=== PATIENT | female | born 1975 ===

== ENCOUNTER 2017-08-16 05:30 | Inpatient (IN) | payer OTHER ==
[2017-08-16] MEDS ORDERED: DIPRIVAN 10 MG/ML 1,000 MG/100 ML BOTTLE IV ONE (05:44)
[2017-08-16] MEDS ORDERED: AMIDATE IV ONE (05:54)
[2017-08-16] MEDS ORDERED: ZEMURON IV ONE (05:54)
[2017-08-16] MEDS ORDERED: DIPRIVAN 10 MG/ML 1,000 MG/100 ML BOTTLE IV SCH (06:00)
[2017-08-16 06:16] LABS: Hematocrit 43.2 % (30.3-42.9); Hemoglobin 13.6 gm/dl (10.1-14.3); Mean Corpuscular HGB Conc 32 % (30-34); Mean Corpuscular Volume 82 fl (79-97); Platelet Count 300 K/mm3 (140-440); Red Blood Count 5.28 M/mm3 (3.65-5.03); Red Cell Distribution Width 14.2 % (13.2-15.2)
[2017-08-16 06:20] LABS: Bilirubin,Urine NEG (Negative); Blood,Urine SM (Negative); Color,Urine Straw (Yellow); Urobilinogen,Urine < 2.0 mg/dL (<2.0)
[2017-08-16 06:25] LABS: Mean Corpuscular Hemoglobin 26 pg (28-32)
[2017-08-16 06:30] LABS: Protein,Urine >500 mg/dL (Negative)
--- NOTE | 2017-08-16 06:39 | Emergency Department Report ---
ED Shortness of Breath HPI - General Chief Complaint: Dyspnea/Respdistress Stated Complaint: MIKI Time Seen by Provider: 08/16/17 05:46 Source: EMS Mode of arrival: Stretcher Limitations: Other - History of Present Illness Initial Comments: EMS were called about nausea and vomiting and when they got to the scene she was short of breath and they gave lasix and albuterol and put her on cpap with no improvement. when she came in she had vomit in her mouth MD Complaint: shortness of breath -: Gradual Severity: severe Consistency: constant Improves With: nothing Worsens With: nothing Treatments Prior to Arrival: none - Related Data Previous Rx's Medication Instructions Recorded Last Taken Type Aspirin EC [Aspirin Enteric Coated 325 mg PO QDAY #30 tablet 08/16/16 Unknown Rx TAB] AtorvaSTATin [Lipitor] 40 mg PO QHS #30 tablet 08/16/16 Unknown Rx Lisinopril [Zestril TAB] 5 mg PO QDAY #30 tablet 08/16/16 Unknown Rx Metoprolol [Lopressor TAB] 25 mg PO BID #60 tablet 08/16/16 Unknown Rx Nitroglycerin [Nitrostat] 0.4 mg SL .Q5MIN PRN #30 tablet 08/16/16 Unknown Rx Prasugrel [Effient] 10 mg PO QDAY #30 tablet 08/16/16 Unknown Rx Allergies Allergy/AdvReac Type Severity Reaction Status Date / Time No Known Allergies Allergy Unverified 08/14/16 15:41 ED Review of Systems ROS: Stated complaint: MIKI Other details as noted in HPI Comment: All other systems reviewed and negative ED Past Medical Hx - Past Medical History Previous Medical History?: Yes Hx Hypertension: Yes Hx Heart Attack/AMI: Yes (stent placement) - Surgical History Past Surgical History?: Yes Additional Surgical History: - Social History Smoking Status: Unknown if ever smoked Substance Use Type: None - Medications Home Medications: Home Medications Medication Instructions Recorded Confirmed Last Taken Type Aspirin EC [Aspirin Enteric Coated 325 mg PO QDAY #30 tablet 08/16/16 Unknown Rx TAB] AtorvaSTATin [Lipitor] 40 mg PO QHS #30 tablet 08/16/16 Unknown Rx Lisinopril [Zestril TAB] 5 mg PO QDAY #30 tablet 08/16/16 Unknown Rx Metoprolol [Lopressor TAB] 25 mg PO BID #60 tablet 08/16/16 Unknown Rx Nitroglycerin [Nitrostat] 0.4 mg SL .Q5MIN PRN #30 tablet 08/16/16 Unknown Rx Prasugrel [Effient] 10 mg PO QDAY #30 tablet 08/16/16 Unknown Rx ED Physical Exam - General Limitations: Other General appearance: alert, in no apparent distress - Head Head exam: Present: atraumatic, normocephalic - Eye Eye exam: Present: normal appearance - ENT ENT exam: Present: mucous membranes moist - Neck Neck exam: Present: normal inspection - Respiratory Respiratory exam: Present: respiratory distress (SEVERE), rhonchi (DIFFUSE) - Cardiovascular Cardiovascular Exam: Present: regular rate, normal rhythm. Absent: systolic murmur, diastolic murmur, rubs, gallop - GI/Abdominal GI/Abdominal exam: Present: soft, normal bowel sounds. Absent: tenderness - Rectal Rectal exam: Present: deferred - Extremities Exam Extremities exam: Present: normal inspection - Back Exam Back exam: Present: normal inspection - Neurological Exam Neurological exam: Present: alert. Absent: oriented X3 - Skin Skin exam: Present: warm, dry, intact, normal color. Absent: rash ED Course Vital Signs 08/16/17 08/16/17 08/16/17 05:26 05:30 05:46 Temperature Pulse Rate 141 H 139 H 133 H Respiratory 27 H 20 Rate Blood Pressure 164/115 Blood Pressure [Left] O2 Sat by Pulse 93 88 97 Oximetry 08/16/17 08/16/17 08/16/17 05:59 06:00 06:04 Temperature 97.6 F Pulse Rate 142 H 135 H 134 H Respiratory 18 20 Rate Blood Pressure 171/121 174/121 Blood Pressure [Left] O2 Sat by Pulse 95 95 Oximetry 08/16/17 08/16/17 08/16/17 06:05 06:15 06:30 Temperature 97.6 F Pulse Rate 135 H 123 H 135 H Respiratory 20 20 20 Rate Blood Pressure 215/143 201/126 Blood Pressure 171/121 [Left] O2 Sat by Pulse 95 97 99 Oximetry 08/16/17 08/16/17 08/16/17 06:37 06:45 07:00 Temperature Pulse Rate 130 H 135 H Respiratory 20 21 20 Rate Blood Pressure 216/133 201/126 Blood Pressure [Left] O2 Sat by Pulse 100 98 98 Oximetry 08/16/17 07:06 Temperature Pulse Rate 133 H Respiratory Rate Blood Pressure 205/124 Blood Pressure [Left] O2 Sat by Pulse Oximetry - Intubation Time Out Performed: Yes Sedative: Etomidate Mg Given: 20 Paralytic: Rocuronium Mg Given: 100 Laryngoscope: fiberoptic video scope Size: 3 Assist Device Used: fiberoptic device ET Tube Size: 8 Tube Secured Depth (cm): 24 (AT TEETH AND 26CM AT THE LIP) Tube Secured Location: lips Tube Placement Confirmation: visualized tube passing t, equal breath sounds bilat, no breath sounds over epi, confirmation by capnometr Patient Tolerated Procedure: well Intubation Complications: none ED Medical Decision Making - Lab Data Result diagrams: 08/16/17 06:00 08/16/17 06:00 - EKG Data -: EKG Interpreted by Me EKG shows normal: sinus rhythm (SINUS TACHYCARDIA), axis (NORMAL), intervals ( NORMAL), QRS complexes (NORMAL), ST-T waves (NORMAL) - Radiology Data Radiology results: report reviewed - Medical Decision Making I SPOKE dR Ahumada WHO ACCEPTED THE PATIENT FOR ADMISSION Critical Care Time: Yes Critical care time in (mins) excluding proc time.: 75 Critical care attestation.: If time is entered above; I have spent that time in minutes in the direct care of this critically ill patient, excluding procedure time. ED Disposition Clinical Impression: Severe sepsis, Acute respiratory failure, Aspiration pneumonia Disposition: OP ADMIT IP TO THIS HOSP Is pt being admited?: Yes Does the pt Need Aspirin: No Condition: Stable Instructions: Bacterial Pneumonia (ED)
[2017-08-16 06:40] LABS: Albumin 3.8 g/dL (3.9-5); Calcium 8.3 mg/dL (8.4-10.2)
[2017-08-16] MEDS ORDERED: APRESOLINE IV ONE (06:52)
[2017-08-16] MEDS ORDERED: ZOSYN/NS 4.5GM/100ML 4.5 GM/100 ML VIAL IV SCH (07:00)
--- NOTE | 2017-08-16 07:02 | XRay Report ---
FINAL REPORT EXAM: XR ABDOMEN 1V AP HISTORY: post NG placed COMPARISONS: Chest radiograph of the same date FINDINGS: AP portable view of the abdomen Nasogastric tube projects over the left abdomen with distal side port below the gastroesophageal junction. No supine evidence of pneumoperitoneum. IMPRESSION: Satisfactory appearance of patient's nasogastric tube.
[2017-08-16] MEDS ORDERED: VASELINE LIP THERAPY TP PRN (07:06)
[2017-08-16 07:46] LABS: Band Neutrophils # (Manual) 0.8 K/mm3; RBC Morphology Normal; Total Cells Counted 100
[2017-08-16] MEDS ORDERED: NACL 0.9% 1000 ML IV ONE (07:46)
[2017-08-16] MEDS ORDERED: D50W (25GM) Syringe IV PRN (07:51)
[2017-08-16] MEDS ORDERED: NACL 0.9% 500 ML IV SCH (08:00)
[2017-08-16] MEDS ORDERED: VITAMIN B1 IV ONE (09:00)
[2017-08-16] MEDS ORDERED: NACL 0.9% IV ONE (09:00)
[2017-08-16] MEDS ORDERED: NACL 0.9% 1000 ML 1,000 ML IV ONE (09:34)
--- NOTE | 2017-08-16 09:34 | Consultation ---
History of Present Illness Consult date: 08/16/17 Requesting physician: MARIN SIDDIQI Reason for consult: hypoxemia History of present illness: 42 y/o morbidly obese black female admitted to the ICU with acute respiratory failure. Patient is intubated orally and sedated and not able provide any history. There is no family at the bedside. Patient is tachycardic, normal blood pressure and tachypnic. Currently on 30% with 100% sat and PEEP of 8. Remainder is negative. Patient also found to be in renal failure, not sure if this is acute or chronic. Past History Past Medical History: hypertension, other (obesity, tobacco abuse, all based off admission from last year.) Past Surgical History: Other (unable to obtain) Social history: other (unable to obtain) Family history: other (unable to obtain) Medications and Allergies Allergies Allergy/AdvReac Type Severity Reaction Status Date / Time No Known Allergies Allergy Unverified 08/14/16 15:41 Home Medications Medication Instructions Recorded Confirmed Last Taken Type Aspirin EC [Aspirin Enteric Coated 325 mg PO QDAY #30 tablet 08/16/16 Unknown Rx TAB] AtorvaSTATin [Lipitor] 40 mg PO QHS #30 tablet 08/16/16 Unknown Rx Lisinopril [Zestril TAB] 5 mg PO QDAY #30 tablet 08/16/16 Unknown Rx Metoprolol [Lopressor TAB] 25 mg PO BID #60 tablet 08/16/16 Unknown Rx Nitroglycerin [Nitrostat] 0.4 mg SL .Q5MIN PRN #30 tablet 08/16/16 Unknown Rx Prasugrel [Effient] 10 mg PO QDAY #30 tablet 08/16/16 Unknown Rx Active Meds: Active Medications Aspirin (Aspirin) 300 mg [place] QDAY JOSÉ MIGUEL Dextrose (D50w (25gm) Syringe) 50 ml IV PRN PRN PRN Reason: Hypoglycemia Enoxaparin Sodium (Lovenox) 40 mg SUB-Q QDAY JOSÉ MIGUEL Hydrophilic Ointment (Vaseline Lip Therapy) 1 applic TP Q2HR PRN PRN Reason: Dry Lips Propofol (Diprivan 10 Mg/Ml) 1,000 mg in 100 mls @ 3.674 mls/hr IV TITR JOSÉ MIGUEL; Protocol Last Titration: 08/16/17 08:57 Dose: 22 mcg/kg/min, 16.166 mls/hr Piperacillin Sod/Tazobactam Sod (Zosyn/Ns 4.5gm/100ml) 4.5 gm in 100 mls @ 200 mls/hr IV ONCE JOSÉ MIGUEL Piperacillin Sod/Tazobactam Sod (Zosyn/Ns 4.5gm/100ml) 4.5 gm in 100 mls @ 200 mls/hr IV Q8H JOSÉ MIGUEL; Protocol Ascorbic Acid 1,500 mg/ Sodium (Chloride) 103 mls @ 206 mls/hr IV Q6H JOSÉ MIGUEL Stop: 08/17/17 04:29 Thiamine HCl 200 mg/ Sodium (Chloride) 102 mls @ 204 mls/hr IV Q6H JOSÉ MIGUEL Stop: 08/17/17 03:29 Insulin Human Lispro (Humalog) 0 unit SUB-Q Q6HR JOSÉ MIGUEL; Protocol Sodium Chloride (Nacl 0.9% 500 Ml) 1 ml IV DIRECT JOSÉ MIGUEL Review of Systems ROS unobtainable: due to endotracheal tube, due to mental status Physical Examination Vital signs: Vital Signs Pulse Pulse Ox 141 H 93 08/16/17 05:26 08/16/17 05:26 General appearance: comatose Eyes: non-icteric ENT: other (orally intubated and sedated, critically ill on vent) Neck: supple Ascultation: Bilateral: clear Percussion: Bilateral: not dull Cardiovascular: other (appears to be sinus tach) Gastrointestinal: hypoactive bowel sounds, soft Extremities: no cyanosis unable to assess Results - Laboratory Findings CBC and BMP: 08/16/17 06:00 08/16/17 06:00 ABG POC ABG pH 7.204 (7.35-7.45) L 08/16/17 07:24 POC ABG pCO2 62.2 (35-45) H 08/16/17 07:24 POC ABG pO2 234 (80-105) H 08/16/17 07:24 POC ABG HCO3 24.6 08/16/17 07:24 POC ABG Total CO2 26 08/16/17 07:24 POC ABG O2 Sat 100 08/16/17 07:24 Abnormal lab findings: Abnormal Labs 08/16/17 08/16/17 08/16/17 06:00 06:00 06:00 WBC 12.7 H RBC 5.28 H Hct 43.2 H MCH 26 L Lymphocytes % (Manual) 48.0 H Lymphocytes # (Manual) 6.1 H POC ABG pH POC ABG pCO2 POC ABG pO2 Chloride 96.4 L Carbon Dioxide 17 L BUN 25 H Creatinine 1.5 H Glucose 312 H Lactic Acid 4.00 H* Calcium 8.3 L Phosphorus 8.80 H AST 61 H Alkaline Phosphatase 157 H NT-Pro-B Natriuret Pep 621.2 H Albumin 3.8 L 08/16/17 07:24 WBC RBC Hct MCH Lymphocytes % (Manual) Lymphocytes # (Manual) POC ABG pH 7.204 L POC ABG pCO2 62.2 H POC ABG pO2 234 H Chloride Carbon Dioxide BUN Creatinine Glucose Lactic Acid Calcium Phosphorus AST Alkaline Phosphatase NT-Pro-B Natriuret Pep Albumin - Diagnostic Findings Chest x-ray: image reviewed (cardiomegaly with some pulmonary vascular congestion, but no evidence of acute lung disease) Assessment and Plan 42 y/o obese female, admitted with acute respiratory failure, renal failure and nausea and vomiting of unknown etiology. 1. Wean FiO2 for sats >88%. Continue PEEP currently at 8 2. Will add nicoderm patch given history of smoking 3. Will also add some PRN neb treatments. 4. UA negative for infection but does have large amounts of protein. Suggest checking FeNA. Repeat labs in am. Will give additional fluids here despite BNP being elevated at [address] on IV lopressor given emesis. Patient takes this med at home, may explain tachycardia that she is experiencing. 6. Added PRN fentanyl with hopes of weaning diprovan therapy some 7. If family has not been alerted, primary to address 8. Keep NPO for now and place NG to intermittent suction 9. Will need serial lactic acid levels 10. On DVT prophylaxis, will add GI CCT 31 minutes.
[2017-08-16] MEDS ORDERED: PROVENTIL IH PRN (09:45)
[2017-08-16] MEDS: ASPIRIN PR SCH (09:52)
[2017-08-16] MEDS: LOVENOX SUB-Q SCH (09:52)
[2017-08-16] MEDS: ZOSYN/NS 4.5GM/100ML 4.5 GM/100 ML VIAL IV SCH ×2 (09:53→16:23)
[2017-08-16] MEDS: NACL 0.9% IV SCH ×6 (09:53→21:42)
[2017-08-16] MEDS: ASCORBIC ACID IV SCH ×3 (09:53→21:42)
[2017-08-16] MEDS: VITAMIN B1 IV SCH ×3 (09:54→21:42)
[2017-08-16] MEDS ORDERED: VITAMIN B-1 200 MG in NACL 0.9% 50 ML IV SCH (10:00)
[2017-08-16] MEDS: PEPCID IV SCH ×2 (10:18→21:42)
[2017-08-16] MEDS: HABITROL TD SCH (10:18)
[2017-08-16] MEDS: DIPRIVAN 10 MG/ML 1,000 MG/100 ML BOTTLE IV SCH ×2 (11:22→18:35)
--- NOTE | 2017-08-16 11:47 | History and Physical Report ---
History of Present Illness Date of examination: 08/16/17 Date of admission: 08/16/17 07:15 Chief complaint: Nausea, vomiting, shortness of breath History of present illness: Patient is a 42 year old female with history of Morbid obesity, DM, CAD on plavix who presented to the ER via EMS after they recieved a call about from patient about persistent nausea and vomiting with shortness of breath. Patient was placed on CPAP at her residence but was with no improvement and impending respiratory failure resulting in intubation at the ER. At the time of my evaluation, patient was already intubated. Per the ED physician the patient had significant oral secretions and hence high suspicion of Aspiration. Past History Past Medical History: CAD, diabetes, hypertension, other (obesity, tobacco abuse , all based off admission from last year.) Past Surgical History: Other (unable to obtain) Social history: other (unable to obtain) Family history: other (unable to obtain) Medications and Allergies Allergies Allergy/AdvReac Type Severity Reaction Status Date / Time No Known Allergies Allergy Unverified 08/14/16 15:41 Home Medications Medication Instructions Recorded Confirmed Last Taken Type Aspirin EC [Aspirin Enteric Coated 325 mg PO QDAY #30 tablet 08/16/16 Unknown Rx TAB] AtorvaSTATin [Lipitor] 40 mg PO QHS #30 tablet 08/16/16 Unknown Rx Lisinopril [Zestril TAB] 5 mg PO QDAY #30 tablet 08/16/16 Unknown Rx Metoprolol [Lopressor TAB] 25 mg PO BID #60 tablet 08/16/16 Unknown Rx Nitroglycerin [Nitrostat] 0.4 mg SL .Q5MIN PRN #30 tablet 08/16/16 Unknown Rx Prasugrel [Effient] 10 mg PO QDAY #30 tablet 08/16/16 Unknown Rx Active Meds: Active Medications Albuterol (Proventil) 2.5 mg IH Q6HRT PRN PRN Reason: Wheezing Aspirin (Aspirin) 300 mg [place] QDAY [facility] Last Admin: 08/16/17 09:52 Dose: 300 mg Dextrose (D50w (25gm) Syringe) 50 ml IV PRN PRN PRN Reason: Hypoglycemia Enoxaparin Sodium (Lovenox) 40 mg SUB-Q QDAY [facility] Last Admin: 08/16/17 09:52 Dose: 40 mg Famotidine (Pepcid) 20 mg IV BID [facility] Last Admin: 08/16/17 10:18 Dose: 20 mg Fentanyl (Sublimaze) 50 mcg IV Q2H PRN PRN Reason: Pain Hydrophilic Ointment (Vaseline Lip Therapy) 1 applic TP Q2HR PRN PRN Reason: Dry Lips Propofol (Diprivan 10 Mg/Ml) 1,000 mg in 100 mls @ 3.674 mls/hr IV TITR JOSÉ MIGUEL; Protocol Last Titration: 08/16/17 11:23 Dose: 0 mcg/kg/min, 0 mls/hr Piperacillin Sod/Tazobactam Sod (Zosyn/Ns 4.5gm/100ml) 4.5 gm in 100 mls @ 200 mls/hr IV ONCE JOSÉ MIGUEL Piperacillin Sod/Tazobactam Sod (Zosyn/Ns 4.5gm/100ml) 4.5 gm in 100 mls @ 200 mls/hr IV Q8H JOSÉ MIGUEL; Protocol Last Admin: 08/16/17 09:53 Dose: 200 mls/hr Ascorbic Acid 1,500 mg/ Sodium (Chloride) 103 mls @ 206 mls/hr IV Q6H JOSÉ MIGUEL Stop: 08/17/17 04:29 Last Admin: 08/16/17 09:53 Dose: 206 mls/hr Thiamine HCl 200 mg/ Sodium (Chloride) 102 mls @ 204 mls/hr IV Q6H JOSÉ MIGUEL Stop: 08/17/17 03:29 Last Admin: 08/16/17 09:54 Dose: 204 mls/hr Propofol (Diprivan 10 Mg/Ml) 1,000 mg in 100 mls @ 3.674 mls/hr IV TITR JOSÉ MIGUEL; Protocol Last Admin: 08/16/17 11:22 Dose: 20 mcg/kg/min, 14.696 mls/hr Insulin Human Lispro (Humalog) 0 unit SUB-Q Q6HR JOSÉ MIGUEL; Protocol Nicotine (Habitrol) 21 mg TD QDAY JOSÉ MIGUEL Last Admin: 08/16/17 10:18 Dose: 21 mg Sodium Chloride (Nacl 0.9% 500 Ml) 1 ml IV DIRECT JOSÉ MIGUEL Review of Systems ROS unobtainable: due to endotracheal tube (PER ED and EMS notes, nausea, vomiting, shortness of breath) Exam - Constitutional Vitals: Temp Pulse Resp BP Pulse Ox 97.8 F 126 H 26 H 115/71 100 08/16/17 09:00 04/14/18 08:54 08/16/17 08:10 08/16/17 08:54 08/16/17 09:07 General appearance: Present: severe distress, other (on mechanical ventilation) - EENT Eyes: Present: PERRL - Neck Neck: Present: supple, normal ROM - Respiratory Respiratory effort: labored Respiratory: bilateral: diminished - Cardiovascular Heart Sounds: Present: S1 & S2 (tachycardia) - Extremities Extremities: no ischemia, pulses intact, pulses symmetrical, No edema, normal temperature, normal color Peripheral Pulses: within normal limits - Abdominal General gastrointestinal: Present: soft, non-tender, normal bowel sounds - Integumentary Integumentary: Present: clear, warm, dry - Musculoskeletal Musculoskeletal: other (unable to access) - Psychiatric Psychiatric: agitated - Neurologic Neurologic: other (unable to access) Results - Labs CBC & Chem 7: 08/17/17 04:20 08/17/17 04:20 Labs: Laboratory Last Values WBC 12.7 K/mm3 (4.5-11.0) H 08/16/17 06:00 RBC 5.28 M/mm3 (3.65-5.03) H 08/16/17 06:00 Hgb 13.6 gm/dl (10.1-14.3) 08/16/17 06:00 Hct 43.2 % (30.3-42.9) H 08/16/17 06:00 MCV 82 fl (79-97) 08/16/17 06:00 MCH 26 pg (28-32) L 08/16/17 06:00 MCHC 32 % (30-34) 08/16/17 06:00 RDW 14.2 % (13.2-15.2) 08/16/17 06:00 Plt Count 300 K/mm3 (140-440) 08/16/17 06:00 Lymph # Mobile Designer 08/16/17 06:00 Add Manual Diff Complete 08/16/17 06:00 Total Counted 100 08/16/17 06:00 Seg Neuts % (Manual) 41.0 % (40.0-70.0) 08/16/17 06:00 Band Neutrophils % 6.0 % 08/16/17 06:00 Lymphocytes % (Manual) 48.0 % (13.4-35.0) H 08/16/17 06:00 Reactive Lymphs % (Man) 0 % 08/16/17 06:00 Monocytes % (Manual) 3.0 % (0.0-7.3) 08/16/17 06:00 Eosinophils % (Manual) 1.0 % (0.0-4.3) 08/16/17 06:00 Basophils % (Manual) 1.0 % (0.0-1.8) 08/16/17 06:00 Metamyelocytes % 0 % 08/16/17 06:00 Myelocytes % 0 % 08/16/17 06:00 Promyelocytes % 0 % 08/16/17 06:00 Blast Cells % 0 % 08/16/17 06:00 Nucleated RBC % Not Reportable 08/16/17 06:00 Seg Neutrophils # Man 5.2 K/mm3 (1.8-7.7) 08/16/17 06:00 Band Neutrophils # 0.8 K/mm3 08/16/17 06:00 Lymphocytes # (Manual) 6.1 K/mm3 (1.2-5.4) H 08/16/17 06:00 Abs React Lymphs (Man) 0.0 K/mm3 08/16/17 06:00 Monocytes # (Manual) 0.4 K/mm3 (0.0-0.8) 08/16/17 06:00 Eosinophils # (Manual) 0.1 K/mm3 (0.0-0.4) 08/16/17 06:00 Basophils # (Manual) 0.1 K/mm3 (0.0-0.1) 08/16/17 06:00 Metamyelocytes # 0.0 K/mm3 08/16/17 06:00 Myelocytes # 0.0 K/mm3 08/16/17 06:00 Promyelocytes # 0.0 K/mm3 08/16/17 06:00 Blast Cells # 0.0 K/mm3 08/16/17 06:00 WBC Morphology Not Reportable 08/16/17 06:00 Hypersegmented Neuts Not Reportable 08/16/17 06:00 Hyposegmented Neuts Not Reportable 08/16/17 06:00 Hypogranular Neuts Not Reportable 08/16/17 06:00 Smudge Cells Not Reportable 08/16/17 06:00 Toxic Granulation Not Reportable 08/16/17 06:00 Toxic Vacuolation Not Reportable 08/16/17 06:00 Dohle Bodies Not Reportable 08/16/17 06:00 Pelger-Huet Anomaly Not Reportable 08/16/17 06:00 Barbara Rods Not Reportable 08/16/17 06:00 Platelet Estimate Appears normal 08/16/17 06:00 Clumped Platelets Not Reportable 08/16/17 06:00 Plt Clumps, EDTA Not Reportable 08/16/17 06:00 Large Platelets Not Reportable 08/16/17 06:00 Giant Platelets Not Reportable 08/16/17 06:00 Platelet Satelliting Not Reportable 08/16/17 06:00 Plt Morphology Comment Not Reportable 08/16/17 06:00 RBC Morphology Normal 08/16/17 06:00 Dimorphic RBCs Not Reportable 08/16/17 06:00 Polychromasia Not Reportable 08/16/17 06:00 Hypochromasia Not Reportable 08/16/17 06:00 Poikilocytosis Not Reportable 08/16/17 06:00 Anisocytosis Not Reportable 08/16/17 06:00 Microcytosis Not Reportable 08/16/17 06:00 Macrocytosis Not Reportable 08/16/17 06:00 Spherocytes Not Reportable 08/16/17 06:00 Pappenheimer Bodies Not Reportable 08/16/17 06:00 Sickle Cells Not Reportable 08/16/17 06:00 Target Cells Not Reportable 08/16/17 06:00 Tear Drop Cells Not Reportable 08/16/17 06:00 Ovalocytes Not Reportable 08/16/17 06:00 Helmet Cells Not Reportable 08/16/17 06:00 Pulido-[place] Bodies Not Reportable 08/16/17 06:00 [place] Rings Not Reportable 08/16/17 06:00 Cristina Cells Not Reportable 08/16/17 06:00 Bite Cells Not Reportable 08/16/17 06:00 Crenated Cell Not Reportable 08/16/17 06:00 Elliptocytes Not Reportable 08/16/17 06:00 Acanthocytes (Spur) Not Reportable 08/16/17 06:00 Rouleaux Not Reportable 08/16/17 06:00 Hemoglobin C Crystals Not Reportable 08/16/17 06:00 Schistocytes Not Reportable 08/16/17 06:00 Malaria parasites Not Reportable 08/16/17 06:00 Malcolm Bodies Not Reportable 08/16/17 06:00 Hem Pathologist Commnt No 08/16/17 06:00 POC ABG pH 7.204 (7.35-7.45) L 08/16/17 07:24 POC ABG pCO2 62.2 (35-45) H 08/16/17 07:24 POC ABG pO2 234 (80-105) H 08/16/17 07:24 POC ABG HCO3 24.6 08/16/17 07:24 POC ABG Total CO2 26 08/16/17 07:24 POC ABG O2 Sat 100 08/16/17 07:24 POC ABG Base Excess -3 08/16/17 07:24 FiO2 100 % 08/16/17 07:24 Sodium 138 mmol/L (137-145) 08/16/17 06:00 Potassium 4.3 mmol/L (3.6-5.0) 08/16/17 06:00 Chloride 96.4 mmol/L (98-107) L 08/16/17 06:00 Carbon Dioxide 17 mmol/L (22-30) L 08/16/17 06:00 Anion Gap 29 mmol/L 08/16/17 06:00 BUN 25 mg/dL (7-17) H 08/16/17 06:00 Creatinine 1.5 mg/dL (0.7-1.2) H 08/16/17 06:00 Estimated GFR 38 ml/min 08/16/17 06:00 BUN/Creatinine Ratio 17 % 08/16/17 06:00 Glucose 312 mg/dL (65-100) H 08/16/17 06:00 Lactic Acid 4.00 mmol/L (0.7-2.0) H* 08/16/17 06:00 Calcium 8.3 mg/dL (8.4-10.2) L 08/16/17 06:00 Phosphorus 8.80 mg/dL (2.5-4.5) H 08/16/17 06:00 Magnesium 2.10 mg/dL (1.7-2.3) 08/16/17 06:00 Total Bilirubin 0.20 mg/dL (0.1-1.2) 08/16/17 06:00 AST 61 units/L (5-40) H 08/16/17 06:00 ALT 51 units/L (7-56) 08/16/17 06:00 Alkaline Phosphatase 157 units/L (35-129) H 08/16/17 06:00 NT-Pro-B Natriuret Pep 621.2 pg/mL (0-450) H 08/16/17 06:00 Total Protein 7.3 g/dL (6.3-8.2) 08/16/17 06:00 Albumin 3.8 g/dL (3.9-5) L 08/16/17 06:00 Albumin/Globulin Ratio 1.1 % 08/16/17 06:00 Urine Color Straw (Yellow) 08/16/17 06:06 Urine Turbidity Clear (Clear) 08/16/17 06:06 Urine pH 6.0 (5.0-7.0) 08/16/17 06:06 Ur Specific Venus 1.007 (1.003-1.030) 08/16/17 06:06 Urine Protein >500 mg/dL (Negative) 08/16/17 06:06 Urine Glucose (UA) >=500 mg/dL (Negative) 08/16/17 06:06 Urine Ketones Neg mg/dL (Negative) 08/16/17 06:06 Urine Blood Sm (Negative) 08/16/17 06:06 Urine Nitrite Neg (Negative) 08/16/17 06:06 Urine Bilirubin Neg (Negative) 08/16/17 06:06 Urine Urobilinogen < 2.0 mg/dL (<2.0) 08/16/17 06:06 Ur Leukocyte Esterase Neg (Negative) 08/16/17 06:06 Urine WBC (Auto) 2.0 /HPF (0.0-6.0) 08/16/17 06:06 Urine RBC (Auto) 2.0 /HPF (0.0-6.0) 08/16/17 06:06 U Epithel Cells (Auto) < 1.0 /HPF (0-13.0) 08/16/17 06:06 Blood Type B POSITIVE 08/16/17 06:15 Antibody Screen Negative 08/16/17 06:15 - Imaging and Cardiology Chest x-ray: image reviewed (diffuse infiltrate) Assessment and Plan Assessment and plan: Patient is a 42 year old female with history of Morbid obesity, DM, CAD on plavix who presented to the ER via EMS after they recieved a call about from patient about persistent nausea and vomiting with shortness of breath. Patient was placed on CPAP at her residence but was with no improvement and impending respiratory failure resulting in intubation at the ER. At the time of my evaluation, patient was already intubated. Per the ED physician the patient had significant oral secretions and hence high suspicion of Aspiration Acute Respiratory failure requiring mechanical ventilation Severe sepsis Aspiration Pneumonia-Presumed Acute Kidney injury with vasomotor nephropathy CAD Hyperglycemia suspect DM Morbid obesity Metabolic Acidosis Plan Admit to ICU Consult rn integrated Continue Mechanical ventilation Sepsis bundle Fluids IV Insulin for DM control DVT/GI prophy The high probability of a clinically significant, sudden or life threatening deterioration of the [pulmonary, GI, renal] system(s) required my full and direct attention, intervention and personal management. The aggregate critical care time was [45] minutes. This time is in addition to time spent performing reported procedures but includes the following: [X] Data Review and interpretation [X] Patient assessment and monitoring of vital signs [X] Documentation [X] Medication orders and management Advance Directives: Yes Plan of care discussed with patient/family: Yes
[2017-08-16] MEDS ORDERED: ASCORBIC ACID 1,500 MG in NACL 0.9% 50 ML IV SCH (12:00)
[2017-08-16] MEDS: HumaLOG SUB-Q SCH ×2 (12:15→17:43)
[2017-08-16 12:22] LABS: Amphetamine Screen,Urine PRESUMPTIVE NEGATIVE; Benzodiazepines Screen,Urine PRESUMPTIVE NEGATIVE; Cannabinoid Screen,Urine PRESUMPTIVE NEGATIVE; Cocaine Screen,Urine PRESUMPTIVE NEGATIVE; Methadone Screen,Urine PRESUMPTIVE NEGATIVE; Opiate Screen,Urine PRESUMPTIVE NEGATIVE
[2017-08-16] MEDS ORDERED: VANCOMYCIN VIAL IV ONE (13:31)
[2017-08-16] MEDS ORDERED: VANCOMYCIN PHARMACY TO DOSE IV SCH (14:00)
[2017-08-16] MEDS: LOPRESSOR IV SCH ×2 (14:36→21:43)
[2017-08-16] MEDS: VANCOMYCIN 2,000 MG in NACL 0.9% 500 ML 500 ML IV SCH (14:48)
--- NOTE | 2017-08-16 17:06 | XRay Report ---
FINAL REPORT PROCEDURE: XR ABDOMEN 1V AP TECHNIQUE: AP supine view of the abdomen HISTORY: NGT placement COMPARISON: 08/16/2017 FINDINGS: Nasogastric tube has been advanced into the distal stomach. Bowel gas pattern is nonobstructive. No focal osseous lesion is seen. No abnormal calcifications are identified. IMPRESSION: Nasogastric tube has been advanced into the distal stomach
[2017-08-17] MEDS: DIPRIVAN 10 MG/ML 1,000 MG/100 ML BOTTLE IV SCH ×2 (00:27→17:59)
[2017-08-17] MEDS: HumaLOG SUB-Q SCH ×4 (00:28→18:14)
[2017-08-17 04:36] LABS: Hematocrit 32.5 % (30.3-42.9); Hemoglobin 11.2 gm/dl (10.1-14.3); Mean Corpuscular HGB Conc 35 % (30-34); Mean Corpuscular Hemoglobin 27 pg (28-32); Mean Corpuscular Volume 79 fl (79-97); Platelet Count 221 K/mm3 (140-440); Red Blood Count 4.14 M/mm3 (3.65-5.03); Red Cell Distribution Width 14.4 % (13.2-15.2)
[2017-08-17 05:02] LABS: Calcium 7.8 mg/dL (8.4-10.2)
[2017-08-17] MEDS: ASCORBIC ACID IV SCH ×4 (05:04→21:19)
[2017-08-17] MEDS: NACL 0.9% IV SCH ×8 (05:04→21:19)
[2017-08-17] MEDS: VITAMIN B1 IV SCH ×4 (05:05→21:02)
[2017-08-17] MEDS: ZOSYN/NS 4.5GM/100ML 4.5 GM/100 ML VIAL IV SCH ×3 (05:06→16:40)
[2017-08-17] MEDS: LOPRESSOR IV SCH ×4 (05:08→21:02)
[2017-08-17] MEDS ORDERED: SODIUM BICARBONATE IV NR (07:56)
--- NOTE | 2017-08-17 09:14 | Progress Note ---
Assessment and Plan 42 y/o obese female, admitted with acute respiratory failure, renal failure and nausea and vomiting of unknown etiology. 1. Wean FiO2 for sats >88%. Will decrease PEEP to 5 today. 2. Continue nicoderm patch with history of smoking. 3. With confirmed history of smoking, will add BID Pulmicort and brovana therapy. 4. No FeNA checked. This may be chronic renal disease as she did not respond to additional fluids. Will order Urine Na and Urine Cr as well as Urine Urea as believe patient got lasix in the ED. Will order renal ultrasound. After these things have been collected, consider renal consult. 5. If patient is extubated today and passes bedside swallow, can restart home medication. If not, restart PO Via OG tube and consider feeds. 6. Wean diprovan as tolerated. Down to 10 and RASS is 0 7. lasctic acid has improved will stop serial checks 8. On DVT prophylaxis, and GI prophylaxis 9. Decreased RR to 18. Will attempt PSV trial later today. If tolerates and stable, will consider extubation. CCT 31 minutes. Subjective Date of service: 08/17/17 Interval history: Awake and alert. On Propofol of 10. Not breathing over the vent and rate set at 22. Was 24 earlier. ABG consistent with respiratory alkalosis with attempt at bicarb to compensate by spilling. Patient was able to nod yes or no to questions appropriately. STates that she does smoke. She is trying to quit. She, her self called 911 for shortness of breath. She has never been intubated before and she had no sick contacts. Objective Vital Signs - 12hr 08/16/17 08/16/17 08/16/17 21:11 21:21 21:30 Temperature Pulse Rate 95 H 100 H 102 H Pulse Rate [ From Monitor] Respiratory 26 H 26 H 26 H Rate Blood Pressure 94/50 94/50 92/48 O2 Sat by Pulse Oximetry 08/16/17 08/16/17 08/16/17 21:41 21:43 21:51 Temperature Pulse Rate 99 H 100 H Pulse Rate [ From Monitor] Respiratory 26 H 26 H Rate Blood Pressure 92/48 94/50 92/48 O2 Sat by Pulse Oximetry 08/16/17 08/16/17 08/16/17 22:00 22:11 22:21 Temperature Pulse Rate 98 H 99 H 93 H Pulse Rate [ From Monitor] Respiratory 26 H 26 H 26 H Rate Blood Pressure 95/49 95/49 95/49 O2 Sat by Pulse Oximetry 08/16/17 08/16/17 08/16/17 22:30 22:41 22:51 Temperature Pulse Rate 87 106 H 124 H Pulse Rate [ From Monitor] Respiratory 26 H 26 H 24 Rate Blood Pressure 113/57 113/57 113/57 O2 Sat by Pulse Oximetry 08/16/17 08/16/17 08/16/17 23:01 23:11 23:21 Temperature Pulse Rate 120 H 108 H 105 H Pulse Rate [ From Monitor] Respiratory 20 26 H 26 H Rate Blood Pressure 106/77 106/77 106/77 O2 Sat by Pulse Oximetry 08/16/17 08/16/17 08/16/17 23:30 23:37 23:41 Temperature 98.8 F Pulse Rate 101 H 102 H Pulse Rate [ From Monitor] Respiratory 26 H 26 H Rate Blood Pressure 104/52 104/52 O2 Sat by Pulse 100 Oximetry 08/16/17 08/16/17 08/17/17 23:50 23:51 00:00 Temperature Pulse Rate 103 H 101 H 103 H Pulse Rate [ 101 H From Monitor] Respiratory 26 H 26 H Rate Blood Pressure 104/52 104/52 88/49 O2 Sat by Pulse 100 100 100 Oximetry 08/17/17 08/17/17 08/17/17 00:11 00:21 00:30 Temperature Pulse Rate 100 H 100 H 101 H Pulse Rate [ From Monitor] Respiratory 26 H 26 H 26 H Rate Blood Pressure 88/49 88/49 82/41 O2 Sat by Pulse 100 100 100 Oximetry 08/17/17 08/17/17 08/17/17 00:41 00:51 01:00 Temperature Pulse Rate 102 H 101 H 94 H Pulse Rate [ From Monitor] Respiratory 26 H 26 H 26 H Rate Blood Pressure 82/41 82/41 94/44 O2 Sat by Pulse 100 100 100 Oximetry 08/17/17 08/17/17 08/17/17 01:11 01:21 01:31 Temperature Pulse Rate 113 H 115 H 117 H Pulse Rate [ From Monitor] Respiratory 24 26 H 26 H Rate Blood Pressure 94/44 94/44 112/85 O2 Sat by Pulse 100 100 100 Oximetry 08/17/17 08/17/17 08/17/17 01:41 01:51 02:00 Temperature Pulse Rate 112 H 107 H 113 H Pulse Rate [ From Monitor] Respiratory 26 H 26 H 26 H Rate Blood Pressure 112/85 112/85 120/82 O2 Sat by Pulse 100 100 100 Oximetry 08/17/17 08/17/17 08/17/17 02:11 02:21 02:30 Temperature Pulse Rate 103 H 103 H 85 Pulse Rate [ From Monitor] Respiratory 26 H 26 H 26 H Rate Blood Pressure 120/82 120/82 110/55 O2 Sat by Pulse 100 100 100 Oximetry 08/17/17 08/17/17 08/17/17 02:41 02:51 03:00 Temperature Pulse Rate 95 H 102 H 103 H Pulse Rate [ From Monitor] Respiratory 26 H 26 H 26 H Rate Blood Pressure 110/55 110/55 110/55 O2 Sat by Pulse 100 100 100 Oximetry 08/17/17 08/17/17 08/17/17 03:11 03:21 03:30 Temperature Pulse Rate 140 H 114 H 110 H Pulse Rate [ From Monitor] Respiratory 25 H 26 H 26 H Rate Blood Pressure 116/65 110/55 123/71 O2 Sat by Pulse Oximetry 08/17/17 08/17/17 08/17/17 03:41 03:51 04:00 Temperature 98.8 F Pulse Rate 110 H 108 H 102 H Pulse Rate [ 121 H From Monitor] Respiratory 26 H 26 H 26 H Rate Blood Pressure 123/71 123/71 99/59 O2 Sat by Pulse 100 Oximetry 08/17/17 08/17/17 08/17/17 04:11 04:21 04:30 Temperature Pulse Rate 103 H 105 H 102 H Pulse Rate [ From Monitor] Respiratory 26 H 26 H 26 H Rate Blood Pressure 99/59 99/59 110/60 O2 Sat by Pulse Oximetry 08/17/17 08/17/17 08/17/17 04:41 04:43 04:51 Temperature Pulse Rate 108 H 110 H 131 H Pulse Rate [ From Monitor] Respiratory 26 H 25 H Rate Blood Pressure 110/60 110/60 110/60 O2 Sat by Pulse 100 Oximetry 08/17/17 08/17/17 08/17/17 05:00 05:08 05:11 Temperature Pulse Rate 118 H 111 H 106 H Pulse Rate [ From Monitor] Respiratory 26 H 26 H Rate Blood Pressure 118/70 118/70 118/70 O2 Sat by Pulse Oximetry 08/17/17 08/17/17 08/17/17 05:21 05:30 05:41 Temperature Pulse Rate 88 89 88 Pulse Rate [ From Monitor] Respiratory 26 H 26 H 26 H Rate Blood Pressure 118/70 113/56 113/56 O2 Sat by Pulse Oximetry 08/17/17 08/17/17 08/17/17 05:51 06:00 06:11 Temperature Pulse Rate 88 88 92 H Pulse Rate [ From Monitor] Respiratory 26 H 26 H 26 H Rate Blood Pressure 113/56 97/49 97/49 O2 Sat by Pulse Oximetry 08/17/17 08/17/17 08/17/17 06:21 06:31 06:41 Temperature Pulse Rate 79 90 86 Pulse Rate [ From Monitor] Respiratory 26 H 26 H 26 H Rate Blood Pressure 97/49 100/50 100/50 O2 Sat by Pulse 100 100 Oximetry 08/17/17 08/17/17 08/17/17 06:51 07:00 07:11 Temperature Pulse Rate 83 89 83 Pulse Rate [ From Monitor] Respiratory 26 H 26 H 26 H Rate Blood Pressure 100/50 90/47 90/47 O2 Sat by Pulse 100 100 100 Oximetry 08/17/17 08/17/17 08/17/17 07:21 07:30 07:41 Temperature Pulse Rate 82 85 70 Pulse Rate [ From Monitor] Respiratory 26 H 26 H 26 H Rate Blood Pressure 95/46 98/51 98/51 O2 Sat by Pulse 100 100 100 Oximetry 08/17/17 08/17/17 08/17/17 07:51 08:00 08:11 Temperature 98.7 F Pulse Rate 90 78 100 H Pulse Rate [ 78 From Monitor] Respiratory 26 H 26 H 26 H Rate Blood Pressure 97/53 89/47 89/47 O2 Sat by Pulse 100 100 100 Oximetry 08/17/17 08/17/17 08:21 08:32 Temperature Pulse Rate 90 106 H Pulse Rate [ From Monitor] Respiratory 26 H Rate Blood Pressure 107/49 107/49 O2 Sat by Pulse 100 100 Oximetry Constitutional: alert Eyes: non-icteric ENT: other (orally intubated and sedated, critically ill on vent) Neck: supple Ascultation: Bilateral: clear Percussion: Bilateral: not dull Cardiovascular: other (appears to be sinus tach) Gastrointestinal: hypoactive bowel sounds, soft Extremities: no cyanosis Neurologic: unable to assess CBC and BMP: 08/17/17 04:20 08/17/17 04:20 ABG, PT/INR, D-dimer: ABG POC ABG pH 7.555 (7.35-7.45) H 08/17/17 04:57 POC ABG pCO2 19.3 (35-45) L 08/17/17 04:57 POC ABG pO2 140 (80-105) H 08/17/17 04:57 POC ABG HCO3 17.1 08/17/17 04:57 POC ABG Total CO2 18 08/17/17 04:57 POC ABG O2 Sat 100 08/17/17 04:57 Abnormal lab findings: Abnormal Labs 08/16/17 08/16/17 08/16/17 06:00 06:00 06:00 WBC 12.7 H RBC 5.28 H Hct 43.2 H MCH 26 L MCHC Lymphocytes % (Manual) 48.0 H Lymphocytes # (Manual) 6.1 H POC ABG pH POC ABG pCO2 POC ABG pO2 Potassium Chloride 96.4 L Carbon Dioxide 17 L BUN 25 H Creatinine 1.5 H Glucose 312 H POC Glucose Lactic Acid 4.00 H* Calcium 8.3 L Phosphorus 8.80 H AST 61 H Alkaline Phosphatase 157 H NT-Pro-B Natriuret Pep 621.2 H Albumin 3.8 L 08/16/17 08/16/17 08/16/17 07:24 11:57 12:07 WBC RBC Hct MCH MCHC Lymphocytes % (Manual) Lymphocytes # (Manual) POC ABG pH 7.204 L POC ABG pCO2 62.2 H POC ABG pO2 234 H Potassium Chloride Carbon Dioxide BUN Creatinine Glucose POC Glucose 138 H Lactic Acid 2.80 H* Calcium Phosphorus AST Alkaline Phosphatase NT-Pro-B Natriuret Pep Albumin 08/16/17 08/16/17 08/16/17 13:27 17:43 18:05 WBC RBC Hct MCH MCHC Lymphocytes % (Manual) Lymphocytes # (Manual) POC ABG pH POC ABG pCO2 POC ABG pO2 Potassium Chloride Carbon Dioxide BUN Creatinine 1.3 H Glucose POC Glucose 138 H Lactic Acid 2.20 H* Calcium Phosphorus AST Alkaline Phosphatase NT-Pro-B Natriuret Pep Albumin 08/17/17 08/17/17 08/17/17 00:06 04:20 04:20 WBC RBC Hct MCH 27 L MCHC 35 H Lymphocytes % (Manual) Lymphocytes # (Manual) POC ABG pH POC ABG pCO2 POC ABG pO2 Potassium 3.1 L D Chloride 107.9 H Carbon Dioxide 16 L BUN 23 H Creatinine 1.5 H Glucose 143 H POC Glucose 143 H Lactic Acid Calcium 7.8 L Phosphorus AST Alkaline Phosphatase NT-Pro-B Natriuret Pep Albumin 08/17/17 08/17/17 04:57 05:48 WBC RBC Hct MCH MCHC Lymphocytes % (Manual) Lymphocytes # (Manual) POC ABG pH 7.555 H POC ABG pCO2 19.3 L POC ABG pO2 140 H Potassium Chloride Carbon Dioxide BUN Creatinine Glucose POC Glucose 129 H Lactic Acid Calcium Phosphorus AST Alkaline Phosphatase NT-Pro-B Natriuret Pep Albumin
[2017-08-17] MEDS: HABITROL TD SCH (09:39)
[2017-08-17] MEDS: ASPIRIN PR SCH (09:39)
[2017-08-17] MEDS: PEPCID IV SCH ×2 (09:39→21:16)
[2017-08-17] MEDS: LOVENOX SUB-Q SCH (09:40)
[2017-08-17 11:14] LABS: Creatinine,Urine 218.6 mg/dL (0.1-20.0)
--- NOTE | 2017-08-17 12:31 | Progress Note ---
Assessment and Plan Assessment and plan: Patient is a 42 year old female with history of Morbid obesity, DM, CAD on plavix who presented to the ER via EMS after they recieved a call about from patient about persistent nausea and vomiting with shortness of breath. Patient was placed on CPAP at her residence but was with no improvement and impending respiratory failure resulting in intubation at the ER. At the time of my evaluation, patient was already intubated. Per the ED physician the patient had significant oral secretions and hence high suspicion of Aspiration Acute Respiratory failure requiring mechanical ventilation Severe sepsis Aspiration Pneumonia-Presumed Acute Kidney injury with vasomotor nephropathy CAD Hyperglycemia suspect DM Morbid obesity Metabolic Acidosis Tobacco Dependence Plan Continue ICU care Strict I/O Discussed with sister, patient had gestational diabetes and also a recent cardiac stent but has no further information about the stent Patient is a smoker per the patient. Await FeNa studY Continue Mechanical ventilation Sepsis bundle Fluids IV Insulin for DM control DVT/GI prophy The high probability of a clinically significant, sudden or life threatening deterioration of the [pulmonary, GI, renal] system(s) required my full and direct attention, intervention and personal management. The aggregate critical care time was [45] minutes. This time is in addition to time spent performing reported procedures but includes the following: [X] Data Review and interpretation [X] Patient assessment and monitoring of vital signs [X] Documentation [X] Medication orders and management History Interval history: Patient seen and examined, remains intubated but gave nodding yes to speak to the sister. She denies any pain at this time. Hospitalist Physical - Physical exam Narrative exam: General appearance: Present: severe distress, other (on mechanical ventilation) - EENT Eyes: Present: PERRL - Neck Neck: Present: supple, normal ROM - Respiratory Respiratory effort: labored Respiratory: bilateral: diminished - Cardiovascular Heart Sounds: Present: S1 & S2 (tachycardia) - Extremities Extremities: no ischemia, pulses intact, pulses symmetrical, No edema, normal temperature, normal color Peripheral Pulses: within normal limits - Abdominal General gastrointestinal: Present: soft, non-tender, normal bowel sounds - Integumentary Integumentary: Present: clear, warm, dry - Musculoskeletal Musculoskeletal: other, moves all extremities. - Psychiatric Psychiatric: agitated - Neurologic Neurologic: other moves all extrimities. no focal deficit - Constitutional Vitals: Temp Pulse Resp BP Pulse Ox 98.7 F 129 H 18 152/83 100 08/17/17 08:00 08/17/17 11:57 08/17/17 11:00 08/17/17 11:57 08/17/17 11:00 General appearance: Present: severe distress, other (on mechanical ventilation) Results - Labs CBC & Chem 7: 08/17/17 04:20 04 04:20 Labs: Laboratory Last Values WBC 10.8 K/mm3 (4.5-11.0) 08/17/17 04:20 RBC 4.14 M/mm3 (3.65-5.03) 08/17/17 04:20 Hgb 11.2 gm/dl (10.1-14.3) 08/17/17 04:20 Hct 32.5 % (30.3-42.9) D 08/17/17 04:20 MCV 79 fl (79-97) 08/17/17 04:20 MCH 27 pg (28-32) L 08/17/17 04:20 MCHC 35 % (30-34) H 08/17/17 04:20 RDW 14.4 % (13.2-15.2) 08/17/17 04:20 Plt Count 221 K/mm3 (140-440) 08/17/17 04:20 Lymph # Letter Carrier 08/16/17 06:00 Add Manual Diff Complete 08/16/17 06:00 Total Counted 100 08/16/17 06:00 Seg Neuts % (Manual) 41.0 % (40.0-70.0) 08/16/17 06:00 Band Neutrophils % 6.0 % 08/16/17 06:00 Lymphocytes % (Manual) 48.0 % (13.4-35.0) H 08/16/17 06:00 Reactive Lymphs % (Man) 0 % 08/16/17 06:00 Monocytes % (Manual) 3.0 % (0.0-7.3) 08/16/17 06:00 Eosinophils % (Manual) 1.0 % (0.0-4.3) 08/16/17 06:00 Basophils % (Manual) 1.0 % (0.0-1.8) 08/16/17 06:00 Metamyelocytes % 0 % 08/16/17 06:00 Myelocytes % 0 % 08/16/17 06:00 Promyelocytes % 0 % 08/16/17 06:00 Blast Cells % 0 % 08/16/17 06:00 Nucleated RBC % Not Reportable 08/16/17 06:00 Seg Neutrophils # Man 5.2 K/mm3 (1.8-7.7) 08/16/17 06:00 Band Neutrophils # 0.8 K/mm3 08/16/17 06:00 Lymphocytes # (Manual) 6.1 K/mm3 (1.2-5.4) H 08/16/17 06:00 Abs React Lymphs (Man) 0.0 K/mm3 08/16/17 06:00 Monocytes # (Manual) 0.4 K/mm3 (0.0-0.8) 08/16/17 06:00 Eosinophils # (Manual) 0.1 K/mm3 (0.0-0.4) 08/16/17 06:00 Basophils # (Manual) 0.1 K/mm3 (0.0-0.1) 08/16/17 06:00 Metamyelocytes # 0.0 K/mm3 08/16/17 06:00 Myelocytes # 0.0 K/mm3 08/16/17 06:00 Promyelocytes # 0.0 K/mm3 08/16/17 06:00 Blast Cells # 0.0 K/mm3 08/16/17 06:00 WBC Morphology Not Reportable 08/16/17 06:00 Hypersegmented Neuts Not Reportable 08/16/17 06:00 Hyposegmented Neuts Not Reportable 08/16/17 06:00 Hypogranular Neuts Not Reportable 08/16/17 06:00 Smudge Cells Not Reportable 08/16/17 06:00 Toxic Granulation Not Reportable 08/16/17 06:00 Toxic Vacuolation Not Reportable 08/16/17 06:00 Dohle Bodies Not Reportable 08/16/17 06:00 Pelger-Huet Anomaly Not Reportable 08/16/17 06:00 Barbara Rods Not Reportable 08/16/17 06:00 Platelet Estimate Appears normal 08/16/17 06:00 Clumped Platelets Not Reportable 08/16/17 06:00 Plt Clumps, EDTA Not Reportable 08/16/17 06:00 Large Platelets Not Reportable 08/16/17 06:00 Giant Platelets Not Reportable 08/16/17 06:00 Platelet Satelliting Not Reportable 08/16/17 06:00 Plt Morphology Comment Not Reportable 08/16/17 06:00 RBC Morphology Normal 08/16/17 06:00 Dimorphic RBCs Not Reportable 08/16/17 06:00 Polychromasia Not Reportable 08/16/17 06:00 Hypochromasia Not Reportable 08/16/17 06:00 Poikilocytosis Not Reportable 08/16/17 06:00 Anisocytosis Not Reportable 08/16/17 06:00 Microcytosis Not Reportable 08/16/17 06:00 Macrocytosis Not Reportable 08/16/17 06:00 Spherocytes Not Reportable 08/16/17 06:00 Pappenheimer Bodies Not Reportable 08/16/17 06:00 Sickle Cells Not Reportable 08/16/17 06:00 Target Cells Not Reportable 08/16/17 06:00 Tear Drop Cells Not Reportable 08/16/17 06:00 Ovalocytes Not Reportable 08/16/17 06:00 Helmet Cells Not Reportable 08/16/17 06:00 Pulido-[place]urt[place] Bodies Not Reportable 08/16/17 06:00 [place] Rings Not Reportable 08/16/17 06:00 Cristina Cells Not Reportable 08/16/17 06:00 Bite Cells Not Reportable 08/16/17 06:00 Crenated Cell Not Reportable 08/16/17 06:00 Elliptocytes Not Reportable 08/16/17 06:00 Acanthocytes (Spur) Not Reportable 08/16/17 06:00 Rouleaux Not Reportable 08/16/17 06:00 Hemoglobin C Crystals Not Reportable 08/16/17 06:00 Schistocytes Not Reportable 08/16/17 06:00 Malaria parasites Not Reportable 08/16/17 06:00 Malcolm Bodies Not Reportable 08/16/17 06:00 Hem Pathologist Commnt No 08/16/17 06:00 POC ABG pH 7.555 (7.35-7.45) H 08/17/17 04:57 POC ABG pCO2 19.3 (35-45) L 08/17/17 04:57 POC ABG pO2 140 (80-105) H 08/17/17 04:57 POC ABG HCO3 17.1 08/17/17 04:57 POC ABG Total CO2 18 08/17/17 04:57 POC ABG O2 Sat 100 08/17/17 04:57 POC ABG Base Excess -5 08/17/17 04:57 FiO2 30 % 08/17/17 04:57 Sodium 144 mmol/L (137-145) 08/17/17 04:20 Potassium 3.1 mmol/L (3.6-5.0) L D 08/17/17 04:20 Chloride 107.9 mmol/L (98-107) H 08/17/17 04:20 Carbon Dioxide 16 mmol/L (22-30) L 08/17/17 04:20 Anion Gap 23 mmol/L 08/17/17 04:20 BUN 23 mg/dL (7-17) H 08/17/17 04:20 Creatinine 1.5 mg/dL (0.7-1.2) H 08/17/17 04:20 Estimated GFR 38 ml/min 08/17/17 04:20 BUN/Creatinine Ratio 15 % 08/17/17 04:20 Glucose 143 mg/dL (65-100) H 08/17/17 04:20 POC Glucose 138 (70-105) H 08/17/17 11:55 Hemoglobin A1c 6.2 % (4-6) H 08/17/17 04:20 Lactic Acid 1.10 mmol/L (0.7-2.0) 08/17/17 04:20 Calcium 7.8 mg/dL (8.4-10.2) L 08/17/17 04:20 Phosphorus 8.80 mg/dL (2.5-4.5) H 08/16/17 06:00 Magnesium 2.10 mg/dL (1.7-2.3) 08/16/17 06:00 Total Bilirubin 0.20 mg/dL (0.1-1.2) 08/16/17 06:00 AST 61 units/L (5-40) H 08/16/17 06:00 ALT 51 units/L (7-56) 08/16/17 06:00 Alkaline Phosphatase 157 units/L (35-129) H 08/16/17 06:00 NT-Pro-B Natriuret Pep 621.2 pg/mL (0-450) H 08/16/17 06:00 Total Protein 7.3 g/dL (6.3-8.2) 08/16/17 06:00 Albumin 3.8 g/dL (3.9-5) L 08/16/17 06:00 Albumin/Globulin Ratio 1.1 % 08/16/17 06:00 Urine Color Straw (Yellow) 08/16/17 06:06 Urine Turbidity Clear (Clear) 08/16/17 06:06 Urine pH 6.0 (5.0-7.0) 08/16/17 06:06 Ur Specific [place] 1.007 (1.003-1.030) 08/16/17 06:06 Urine Protein >500 mg/dL (Negative) 08/16/17 06:06 Urine Glucose (UA) >=500 mg/dL (Negative) 08/16/17 06:06 Urine Ketones Neg mg/dL (Negative) 08/16/17 06:06 Urine Blood Sm (Negative) 08/16/17 06:06 Urine Nitrite Neg (Negative) 08/16/17 06:06 Urine Bilirubin Neg (Negative) 08/16/17 06:06 Urine Urobilinogen < 2.0 mg/dL (<2.0) 08/16/17 06:06 Ur Leukocyte Esterase Neg (Negative) 08/16/17 06:06 Urine WBC (Auto) 2.0 /HPF (0.0-6.0) 08/16/17 06:06 Urine RBC (Auto) 2.0 /HPF (0.0-6.0) 08/16/17 06:06 U Epithel Cells (Auto) < 1.0 /HPF (0-13.0) 08/16/17 06:06 Urine Creatinine 218.6 mg/dL (0.1-20.0) H 08/17/17 11:03 Urine Sodium 40 mmol/L 08/17/17 11:03 Urine Opiates Screen Presumptive negative 08/16/17 06:06 Urine Methadone Screen Presumptive negative 08/16/17 06:06 Ur Barbiturates Screen Presumptive negative 08/16/17 06:06 Ur Phencyclidine Scrn Presumptive negative 08/16/17 06:06 Ur Amphetamines Screen Presumptive negative 08/16/17 06:06 U Benzodiazepines Scrn Presumptive negative 08/16/17 06:06 Urine Cocaine Screen Presumptive negative 08/16/17 06:06 U Marijuana (THC) Screen Presumptive negative 08/16/17 06:06 Drugs of Abuse Note Disclamer 08/16/17 06:06 Blood Type B POSITIVE 08/16/17 06:15 Antibody Screen Negative 08/16/17 06:15
--- NOTE | 2017-08-17 12:55 | Ultrasound Report ---
ULTRASOUND RENAL BILATERAL HISTORY: Renal failure. TECHNIQUE: transabdominal ultrasound with color Doppler interrogation. COMPARISON: none. FINDINGS: The right kidney measures 9.8cm. Right renal cortex: 1.3cm. The left kidney measures 9.2cm. Left renal cortex: 1.5cm. The kidneys are normal size, contour and position. There is increased renal parenchymal echotexture bilaterally. Corticomedullary differentiation is preserved. No evidence for cystic disease, mass, nephrolithiasis, hydronephrosis or perinephric fluid. The views of the bladder and the region of the ureters appear normal. An incidental finding of gallstones in a nondistended gallbladder is noted. IMPRESSION: Slightly echogenic kidneys consistent with nonspecific renal parenchymal disease. No obstructive uropathy. Cholelithiasis.
[2017-08-17 12:58] LABS: Creatinine,Urine 220.2 mg/dL (0.1-20.0)
[2017-08-17] MEDS: VANCOMYCIN 2,000 MG in NACL 0.9% 500 ML 500 ML IV SCH (14:08)
[2017-08-17] MEDS ORDERED: ATIVAN IV ONE (16:30)
[2017-08-17] MEDS ORDERED: HALDOL IM ONE (16:30)
[2017-08-17] MEDS ORDERED: VERSED IV ONE (16:47)
[2017-08-17] MEDS ORDERED: SUBLIMAZE IV ONE ×3 (17:00→19:00)
[2017-08-17] MEDS: SUBLIMAZE IV PRN (17:15)
[2017-08-17] MEDS ORDERED: DIPRIVAN 10 MG/ML IV ONE ×2 (17:28→18:34)
[2017-08-17] MEDS ORDERED: ZEMURON IV ONE (17:31)
[2017-08-17] MEDS ORDERED: QUELICIN ONE (17:31)
[2017-08-17] MEDS ORDERED: VERSED IV NR ×2 (18:00)
[2017-08-17] MEDS ORDERED: QUELICIN IV ONE (18:00)
[2017-08-17] MEDS: PULMICORT IH SCH (19:20)
[2017-08-17] MEDS: BROVANA NEBU IH SCH (19:20)
[2017-08-18] MEDS: HumaLOG SUB-Q SCH ×3 (00:21→12:16)
[2017-08-18] MEDS: ZOSYN/NS 4.5GM/100ML 4.5 GM/100 ML VIAL IV SCH ×3 (00:22→17:57)
[2017-08-18] MEDS: VITAMIN B1 IV SCH ×2 (03:09→09:00)
[2017-08-18] MEDS: NACL 0.9% IV SCH ×4 (03:09→10:00)
[2017-08-18] MEDS: LOPRESSOR IV SCH ×2 (03:10→09:14)
--- NOTE | 2017-08-18 03:19 | XRay Report ---
FINAL REPORT EXAM: XR ABDOMEN 1V AP HISTORY: DBHT placement TECHNIQUE: Two supine views of the abdomen were obtained for evaluation of the Dobhoff catheter. Comparison is made the study of 08/16/2017. FINDINGS: The Dobhoff tube is coiled upon itself with the tip in the cardiac region of the stomach. The bowel gas pattern is normal otherwise. The bones and soft tissues do not show any acute changes. IMPRESSION: Dobhoff tube is coiled upon itself with tip in the cardiac region of the stomach.
--- NOTE | 2017-08-18 03:20 | XRay Report ---
FINAL REPORT EXAM: XR CHEST 1V AP HISTORY: follow up respiratory failure TECHNIQUE: A portable semi-upright view the chest was obtained and compared the study of 08/16/2017. FINDINGS: ET tube and nasogastric tube appear in good position. The heart is mildly enlarged. The lungs remain mildly congested. There are no localized infiltrates. The bones soft tissues otherwise are unchanged. IMPRESSION: Stable cardiomegaly and vascular congestion. Normal position of the ET tube and NG tube.
[2017-08-18] MEDS: APRESOLINE IV PRN (03:59)
[2017-08-18] MEDS: ASCORBIC ACID IV SCH ×2 (04:00→10:00)
[2017-08-18] MEDS: DIPRIVAN 10 MG/ML 1,000 MG/100 ML BOTTLE IV SCH ×2 (04:24→19:03)
[2017-08-18] MEDS: SUBLIMAZE IV PRN ×2 (04:27→09:13)
[2017-08-18] MEDS: BROVANA NEBU IH SCH ×2 (07:58→21:05)
[2017-08-18] MEDS: PULMICORT IH SCH ×2 (07:58→21:05)
--- NOTE | 2017-08-18 08:51 | XRay Report ---
FINAL REPORT EXAM: XRAY CHEST SINGLE VIEW HISTORY: SOB/Post ETT placement TECHNIQUE: AP portable view(s) of the chest obtained. PRIORS: None. FINDINGS: Endotracheal tube terminates approximately 5 cm from the ike. Enteric tube courses below the diaphragm and off of the inferior field of view. No mediastinal shift. Cardiac silhouette is not enlarged. No pneumothorax or focal airspace disease identified. Hazy/ill-defined bibasilar opacities. No acute skeletal findings. IMPRESSION: Satisfactory appearance of patient's support apparatus without pneumothorax. Hazy/ill-defined bibasilar opacities may be secondary to atelectasis, scarring, infection and/or aspiration.
[2017-08-18] MEDS: PEPCID IV SCH ×2 (09:14→21:38)
[2017-08-18] MEDS: ASPIRIN PR SCH (09:15)
[2017-08-18] MEDS: LOVENOX SUB-Q SCH (09:15)
[2017-08-18] MEDS: HABITROL TD SCH (09:15)
[2017-08-18 10:10] LABS: Basophils % (Auto) 0.4 % (0.0-1.8); Eosinophils % (Auto) 0.3 % (0.0-4.3); Hematocrit 34.1 % (30.3-42.9); Hemoglobin 11.2 gm/dl (10.1-14.3); Lymphocytes # (Auto) 1.8 K/mm3 (1.2-5.4); Lymphocytes % (Auto) 17.1 % (13.4-35.0); Mean Corpuscular HGB Conc 33 % (30-34); Mean Corpuscular Volume 79 fl (79-97); Monocytes # (Auto) 0.8 K/mm3 (0.0-0.8); Monocytes % (Auto) 7.3 % (0.0-7.3); Platelet Count 215 K/mm3 (140-440); Red Blood Count 4.34 M/mm3 (3.65-5.03); Red Cell Distribution Width 14.3 % (13.2-15.2)
[2017-08-18 10:15] LABS: Mean Corpuscular Hemoglobin 26 pg (28-32)
--- NOTE | 2017-08-18 11:21 | Progress Note ---
Assessment and Plan Imp: 1. Acute respiratory failure, hypoxia and hypercapnea; ? etiology 2. CAD s/p PCI 08/19 3. Malignant HTN on presentation with SBP > 200 4. Morbid obesity 5. CKD 6. Lactic acidosis Rec: 1. Needs better BP control; confirm DHT -> start Losartan and convert to PO Metoprolol when able 2. Not convinced re: aspiration and sepsis; see #3 above; will d/c Vanco; f/u cultures; cont. Zosyn for now 3. Obtain cardiology opinion 4. KATARZYNA screening once extubated 5. Daily PSV trials 6. GI and DVT PPx CCt 31 minutes; no family present Subjective Date of service: 08/18/17 Principal diagnosis: Acute respiratory failure Interval history: No events overnight. Agitated, tachycardic, and hypertensive on PSV today. Back on AC. Denies chest pain. No new complaints. Active Medications Albuterol (Proventil) 2.5 mg IH Q6HRT PRN PRN Reason: Wheezing Arformoterol Tartrate (Brovana Nebu) 15 mcg IH Q12HRT [facility] Last Admin: 08/18/17 07:58 Dose: 15 mcg Aspirin (Aspirin) 300 mg VT QDAY [facility] Last Admin: 08/18/17 09:15 Dose: 300 mg Budesonide (Pulmicort) 0.5 mg IH Q12HRT [facility] Last Admin: 08/18/17 07:58 Dose: 0.5 mg Dextrose (D50w (25gm) Syringe) 50 ml IV PRN PRN PRN Reason: Hypoglycemia Enoxaparin Sodium (Lovenox) 40 mg SUB-Q QDAY [facility] Last Admin: 08/18/17 09:15 Dose: 40 mg Famotidine (Pepcid) 20 mg IV BID [facility] Last Admin: 08/18/17 09:14 Dose: 20 mg Fentanyl (Sublimaze) 50 mcg IV Q2H PRN PRN Reason: Pain Last Admin: 08/18/17 09:13 Dose: 50 mcg Hydralazine HCl (Apresoline) 10 mg IV Q4H PRN PRN Reason: Hypertension Last Admin: 08/18/17 03:59 Dose: 10 mg Hydrophilic Ointment (Vaseline Lip Therapy) 1 applic TP Q2HR PRN PRN Reason: Dry Lips Piperacillin Sod/Tazobactam Sod (Zosyn/Ns 4.5gm/100ml) 4.5 gm in 100 mls @ 200 mls/hr IV Q8H [facility]; Protocol Last Admin: 08/18/17 09:13 Dose: 200 mls/hr Propofol (Diprivan 10 Mg/Ml) 1,000 mg in 100 mls @ 3.674 mls/hr IV TITR [facility]; Protocol Last Admin: 08/18/17 04:24 Dose: 10 mcg/kg/min, 7.348 mls/hr Insulin Human Lispro (Humalog) 0 unit SUB-Q Q6HR [facility]; Protocol Last Admin: 08/18/17 12:16 Dose: Not Given Losartan Potassium (Cozaar) 25 mg PO QDAY [facility] Metoprolol Tartrate (Lopressor) 5 mg IV Q6H [facility] Last Admin: 08/18/17 09:14 Dose: 5 mg Nicotine (Habitrol) 21 mg TD QDAY [facility] Last Admin: 08/18/17 09:15 Dose: 21 mg Sodium Chloride (Nacl 0.9% 500 Ml) 1 ml IV DIRECT [facility] Objective Vital Signs - 12hr 08/17/17 08/17/17 08/17/17 23:30 23:31 23:41 Temperature 98.5 F Pulse Rate 105 H 110 H 105 H Pulse Rate [ Anterior Bilateral Throughout] Pulse Rate [ From Monitor] Respiratory 18 18 Rate Respiratory Rate [Anterior Bilateral Throughout] Blood Pressure 147/91 147/91 147/91 O2 Sat by Pulse 100 100 100 Oximetry 08/17/17 08/18/17 08/18/17 23:51 00:00 00:11 Temperature Pulse Rate 104 H 106 H 104 H Pulse Rate [ Anterior Bilateral Throughout] Pulse Rate [ 100 H From Monitor] Respiratory 18 18 18 Rate Respiratory Rate [Anterior Bilateral Throughout] Blood Pressure 147/91 150/96 147/91 O2 Sat by Pulse 100 100 100 Oximetry 08/18/17 08/18/17 08/18/17 00:21 00:31 00:41 Temperature Pulse Rate 102 H 106 H 98 H Pulse Rate [ Anterior Bilateral Throughout] Pulse Rate [ From Monitor] Respiratory 18 18 18 Rate Respiratory Rate [Anterior Bilateral Throughout] Blood Pressure 147/91 147/91 150/96 O2 Sat by Pulse 100 100 100 Oximetry 08/18/17 08/18/17 08/18/17 00:51 01:00 01:11 Temperature Pulse Rate 102 H 102 H 103 H Pulse Rate [ Anterior Bilateral Throughout] Pulse Rate [ From Monitor] Respiratory 18 18 18 Rate Respiratory Rate [Anterior Bilateral Throughout] Blood Pressure 150/96 145/92 145/92 O2 Sat by Pulse 100 100 100 Oximetry 08/18/17 08/18/17 08/18/17 01:21 01:31 01:41 Temperature Pulse Rate 103 H 101 H 105 H Pulse Rate [ Anterior Bilateral Throughout] Pulse Rate [ From Monitor] Respiratory 18 18 18 Rate Respiratory Rate [Anterior Bilateral Throughout] Blood Pressure 145/92 145/92 145/92 O2 Sat by Pulse 100 100 100 Oximetry 08/18/17 08/18/17 08/18/17 01:51 02:00 02:11 Temperature Pulse Rate 103 H 101 H 105 H Pulse Rate [ Anterior Bilateral Throughout] Pulse Rate [ From Monitor] Respiratory 18 18 18 Rate Respiratory Rate [Anterior Bilateral Throughout] Blood Pressure 145/92 145/92 156/96 O2 Sat by Pulse 100 100 100 Oximetry 08/18/17 08/18/17 08/18/17 02:21 02:31 02:41 Temperature Pulse Rate 117 H 108 H 113 H Pulse Rate [ Anterior Bilateral Throughout] Pulse Rate [ From Monitor] Respiratory 22 28 H 19 Rate Respiratory Rate [Anterior Bilateral Throughout] Blood Pressure 156/96 156/96 156/96 O2 Sat by Pulse 100 100 100 Oximetry 08/18/17 08/18/17 08/18/17 02:51 03:01 03:10 Temperature Pulse Rate 111 H 107 H 103 H Pulse Rate [ Anterior Bilateral Throughout] Pulse Rate [ From Monitor] Respiratory 18 18 Rate Respiratory Rate [Anterior Bilateral Throughout] Blood Pressure 156/96 193/114 188/105 O2 Sat by Pulse 100 100 Oximetry 08/18/17 08/18/17 08/18/17 03:11 03:21 03:30 Temperature Pulse Rate 96 H 91 H 100 H Pulse Rate [ Anterior Bilateral Throughout] Pulse Rate [ From Monitor] Respiratory 18 18 18 Rate Respiratory Rate [Anterior Bilateral Throughout] Blood Pressure 188/105 185/100 172/116 O2 Sat by Pulse 100 100 100 Oximetry 08/18/17 08/18/17 08/18/17 03:40 03:41 03:51 Temperature 99.1 F Pulse Rate 95 H 101 H Pulse Rate [ Anterior Bilateral Throughout] Pulse Rate [ From Monitor] Respiratory 18 18 Rate Respiratory Rate [Anterior Bilateral Throughout] Blood Pressure 172/116 172/116 O2 Sat by Pulse 100 100 Oximetry 08/18/17 08/18/17 08/18/17 03:59 04:00 04:11 Temperature Pulse Rate 100 H 101 H 113 H Pulse Rate [ Anterior Bilateral Throughout] Pulse Rate [ 116 H From Monitor] Respiratory 18 18 Rate Respiratory Rate [Anterior Bilateral Throughout] Blood Pressure 172/116 184/111 184/111 O2 Sat by Pulse 100 100 Oximetry 08/18/17 08/18/17 08/18/17 04:19 04:21 04:30 Temperature Pulse Rate 118 H 118 H 115 H Pulse Rate [ Anterior Bilateral Throughout] Pulse Rate [ From Monitor] Respiratory 18 18 Rate Respiratory Rate [Anterior Bilateral Throughout] Blood Pressure 184/111 184/111 152/82 O2 Sat by Pulse 100 100 100 Oximetry 08/18/17 08/18/17 08/18/17 04:41 04:51 05:00 Temperature Pulse Rate 116 H 115 H 116 H Pulse Rate [ Anterior Bilateral Throughout] Pulse Rate [ From Monitor] Respiratory 18 18 18 Rate Respiratory Rate [Anterior Bilateral Throughout] Blood Pressure 152/82 152/82 144/90 O2 Sat by Pulse 100 100 100 Oximetry 08/18/17 08/18/17 08/18/17 05:11 05:21 05:30 Temperature Pulse Rate 116 H 116 H 117 H Pulse Rate [ Anterior Bilateral Throughout] Pulse Rate [ From Monitor] Respiratory 18 18 18 Rate Respiratory Rate [Anterior Bilateral Throughout] Blood Pressure 144/90 144/90 154/89 O2 Sat by Pulse 100 100 100 Oximetry 08/18/17 08/18/17 08/18/17 05:41 05:51 06:00 Temperature Pulse Rate 116 H 116 H 112 H Pulse Rate [ Anterior Bilateral Throughout] Pulse Rate [ From Monitor] Respiratory 18 18 18 Rate Respiratory Rate [Anterior Bilateral Throughout] Blood Pressure 154/89 154/89 131/68 O2 Sat by Pulse 100 100 99 Oximetry 08/18/17 08/18/17 08/18/17 06:11 06:21 06:30 Temperature Pulse Rate 114 H 110 H 115 H Pulse Rate [ Anterior Bilateral Throughout] Pulse Rate [ From Monitor] Respiratory 18 18 16 Rate Respiratory Rate [Anterior Bilateral Throughout] Blood Pressure 131/68 131/68 138/84 O2 Sat by Pulse 99 99 100 Oximetry 04/16/18 04/16/18 04/16/18 06:41 06:51 07:00 Temperature Pulse Rate 111 H 109 H 117 H Pulse Rate [ Anterior Bilateral Throughout] Pulse Rate [ From Monitor] Respiratory 18 18 18 Rate Respiratory Rate [Anterior Bilateral Throughout] Blood Pressure 138/84 138/84 151/83 O2 Sat by Pulse 100 100 100 Oximetry 08/18/17 08/18/17 08/18/17 07:11 07:21 07:30 Temperature Pulse Rate 114 H 114 H 114 H Pulse Rate [ Anterior Bilateral Throughout] Pulse Rate [ From Monitor] Respiratory 18 18 18 Rate Respiratory Rate [Anterior Bilateral Throughout] Blood Pressure 151/83 151/83 151/88 O2 Sat by Pulse 100 100 100 Oximetry 08/18/17 08/18/17 08/18/17 07:37 07:41 07:51 Temperature 99.2 F Pulse Rate 115 H 120 H Pulse Rate [ Anterior Bilateral Throughout] Pulse Rate [ From Monitor] Respiratory 18 17 Rate Respiratory Rate [Anterior Bilateral Throughout] Blood Pressure 151/88 151/88 O2 Sat by Pulse 100 100 Oximetry 08/18/17 08/18/17 08/18/17 07:57 07:59 08:25 Temperature Pulse Rate 117 H Pulse Rate [ 116 H 113 H Anterior Bilateral Throughout] Pulse Rate [ From Monitor] Respiratory Rate Respiratory 18 16 Rate [Anterior Bilateral Throughout] Blood Pressure 144/93 O2 Sat by Pulse 100 Oximetry 08/18/17 09:14 Temperature Pulse Rate 130 H Pulse Rate [ Anterior Bilateral Throughout] Pulse Rate [ From Monitor] Respiratory Rate Respiratory Rate [Anterior Bilateral Throughout] Blood Pressure 189/93 O2 Sat by Pulse Oximetry Constitutional: alert, other (critically ill on vent) Eyes: non-icteric ENT: other (orally intubated and sedated, critically ill on vent) Neck: supple Effort: normal Ascultation: Bilateral: other (coarse BS bilaterally) Cardiovascular: other (appears to be sinus tachy, no mrg) Gastrointestinal: normoactive bowel sounds, soft, non-tender, non-distended Integumentary: normal Extremities: no cyanosis, no edema, pink and warm Neurologic: normal mental status, non-focal exam, pupils equal and round, CN II- XII normal Psychiatric: mood appropriate, affect normal CBC and BMP: 08/18/17 09:52 08/18/17 09:52 ABG, PT/INR, D-dimer: ABG POC ABG pH 7.422 (7.35-7.45) 08/18/17 04:20 POC ABG pCO2 28.7 (35-45) L 08/18/17 04:20 POC ABG pO2 130 (80-105) H 08/18/17 04:20 POC ABG HCO3 18.7 08/18/17 04:20 POC ABG Total CO2 20 08/18/17 04:20 POC ABG O2 Sat 99 08/18/17 04:20 Abnormal lab findings: Abnormal Labs 08/16/17 08/16/17 08/16/17 06:00 06:00 06:00 WBC 12.7 H RBC 5.28 H Hct 43.2 H MCH 26 L MCHC Seg Neutrophils % Lymphocytes % (Manual) 48.0 H Seg Neutrophils # Lymphocytes # (Manual) 6.1 H POC ABG pH POC ABG pCO2 POC ABG pO2 Sodium Potassium Chloride 96.4 L Carbon Dioxide 17 L BUN 25 H Creatinine 1.5 H Glucose 312 H POC Glucose Hemoglobin A1c Lactic Acid 4.00 H* Calcium 8.3 L Phosphorus 8.80 H AST 61 H Alkaline Phosphatase 157 H NT-Pro-B Natriuret Pep 621.2 H Albumin 3.8 L Urine Creatinine 08/16/17 08/16/17 08/16/17 07:24 11:57 12:07 WBC RBC Hct MCH MCHC Seg Neutrophils % Lymphocytes % (Manual) Seg Neutrophils # Lymphocytes # (Manual) POC ABG pH 7.204 L POC ABG pCO2 62.2 H POC ABG pO2 234 H Sodium Potassium Chloride Carbon Dioxide BUN Creatinine Glucose POC Glucose 138 H Hemoglobin A1c Lactic Acid 2.80 H* Calcium Phosphorus AST Alkaline Phosphatase NT-Pro-B Natriuret Pep Albumin Urine Creatinine 08/16/17 08/16/17 08/16/17 13:27 17:43 18:05 WBC RBC Hct MCH MCHC Seg Neutrophils % Lymphocytes % (Manual) Seg Neutrophils # Lymphocytes # (Manual) POC ABG pH POC ABG pCO2 POC ABG pO2 Sodium Potassium Chloride Carbon Dioxide BUN Creatinine 1.3 H Glucose POC Glucose 138 H Hemoglobin A1c Lactic Acid 2.20 H* Calcium Phosphorus AST Alkaline Phosphatase NT-Pro-B Natriuret Pep Albumin Urine Creatinine 08/17/17 08/17/17 08/17/17 00:06 04:20 04:20 WBC RBC Hct MCH 27 L MCHC 35 H Seg Neutrophils % Lymphocytes % (Manual) Seg Neutrophils # Lymphocytes # (Manual) POC ABG pH POC ABG pCO2 POC ABG pO2 Sodium Potassium 3.1 L D Chloride 107.9 H Carbon Dioxide 16 L BUN 23 H Creatinine 1.5 H Glucose 143 H POC Glucose 143 H Hemoglobin A1c Lactic Acid Calcium 7.8 L Phosphorus AST Alkaline Phosphatase NT-Pro-B Natriuret Pep Albumin Urine Creatinine 08/17/17 08/17/17 08/17/17 04:20 04:57 05:48 WBC RBC Hct MCH MCHC Seg Neutrophils % Lymphocytes % (Manual) Seg Neutrophils # Lymphocytes # (Manual) POC ABG pH 7.555 H POC ABG pCO2 19.3 L POC ABG pO2 140 H Sodium Potassium Chloride Carbon Dioxide BUN Creatinine Glucose POC Glucose 129 H Hemoglobin A1c 6.2 H Lactic Acid Calcium Phosphorus AST Alkaline Phosphatase NT-Pro-B Natriuret Pep Albumin Urine Creatinine 08/17/17 08/17/17 08/17/17 11:03 11:03 11:55 WBC RBC Hct MCH MCHC Seg Neutrophils % Lymphocytes % (Manual) Seg Neutrophils # Lymphocytes # (Manual) POC ABG pH POC ABG pCO2 POC ABG pO2 Sodium Potassium Chloride Carbon Dioxide BUN Creatinine Glucose POC Glucose 138 H Hemoglobin A1c Lactic Acid Calcium Phosphorus AST Alkaline Phosphatase NT-Pro-B Natriuret Pep Albumin Urine Creatinine 220.2 H 218.6 H 08/17/17 08/17/17 08/18/17 18:17 23:30 00:02 WBC RBC Hct MCH MCHC Seg Neutrophils % Lymphocytes % (Manual) Seg Neutrophils # Lymphocytes # (Manual) POC ABG pH POC ABG pCO2 33.2 L POC ABG pO2 307 H Sodium Potassium Chloride Carbon Dioxide BUN Creatinine Glucose POC Glucose 173 H 126 H Hemoglobin A1c Lactic Acid Calcium Phosphorus AST Alkaline Phosphatase NT-Pro-B Natriuret Pep Albumin Urine Creatinine 08/18/17 08/18/17 08/18/17 04:20 05:04 09:52 WBC RBC Hct MCH 26 L MCHC Seg Neutrophils % 74.9 H Lymphocytes % (Manual) Seg Neutrophils # 7.9 H Lymphocytes # (Manual) POC ABG pH POC ABG pCO2 28.7 L POC ABG pO2 130 H Sodium Potassium Chloride Carbon Dioxide BUN Creatinine Glucose POC Glucose 118 H Hemoglobin A1c Lactic Acid Calcium Phosphorus AST Alkaline Phosphatase NT-Pro-B Natriuret Pep Albumin Urine Creatinine 04/16/18 09:52 WBC RBC Hct MCH MCHC Seg Neutrophils % Lymphocytes % (Manual) Seg Neutrophils # Lymphocytes # (Manual) POC ABG pH POC ABG pCO2 POC ABG pO2 Sodium 146 H Potassium 3.2 L Chloride 111.2 H Carbon Dioxide 18 L BUN Creatinine Glucose 123 H POC Glucose Hemoglobin A1c Lactic Acid Calcium 8.0 L Phosphorus AST Alkaline Phosphatase NT-Pro-B Natriuret Pep Albumin Urine Creatinine Chest x-ray: report reviewed, image reviewed
--- NOTE | 2017-08-18 14:25 | XRay Report ---
AP ABDOMEN: HISTORY: Dobbhoff tube placement. A Dobbhoff tube has been reinserted or repositioned since 08/18/17. The Dobbhoff tube is coiled upon itself in the antrum of the stomach with its distal tip in the body of the stomach. The abdominal gas pattern is unremarkable. No masses or organomegaly is identified and there is no gross evidence of free air or fluid. No significant soft tissue calcifications are noted. IMPRESSION: Dobbhoff tube as described.
--- NOTE | 2017-08-18 14:38 | Consultation ---
History of Present Illness Consult date: 08/18/17 Consult reason: known to you History of present illness: This is a 42yr old male who is admitted to CCU with nausea, vomiting, acute respiratory failure of unknown etiology. Patient is currently alert, on mechanical ventilation. She denies chest pain. Her ECG is a sinus tachycardia, rate 124. There are no acute ST abnormalities. Patient is known to [facility] and has a history of coronary artery disease. A year ago she underwent coronary stent implantation of the distal circumflex and is on plavix and aspirin therapy. Further cardiac evaluation with an echocardiogram this admission reports a normal left ventricular size, ejection fraction 50-55%. Past History Past Medical History: CAD, diabetes, hypertension Social history: smoking Medications and Allergies Allergies Allergy/AdvReac Type Severity Reaction Status Date / Time No Known Allergies Allergy Unverified 08/14/16 15:41 Home Medications Medication Instructions Recorded Confirmed Last Taken Type Aspirin EC [Aspirin Enteric Coated 325 mg PO QDAY #30 tablet 08/16/16 Unknown Rx TAB] AtorvaSTATin [Lipitor] 40 mg PO QHS #30 tablet 08/16/16 Unknown Rx Lisinopril [Zestril TAB] 5 mg PO QDAY #30 tablet 08/16/16 Unknown Rx Metoprolol [Lopressor TAB] 25 mg PO BID #60 tablet 08/16/16 Unknown Rx Nitroglycerin [Nitrostat] 0.4 mg SL .Q5MIN PRN #30 tablet 08/16/16 Unknown Rx Prasugrel [Effient] 10 mg PO QDAY #30 tablet 08/16/16 Unknown Rx Active Meds: Active Medications Albuterol (Proventil) 2.5 mg IH Q6HRT PRN PRN Reason: Wheezing Arformoterol Tartrate (Brovana Nebu) 15 mcg IH Q12HRT [facility] Last Admin: 08/18/17 07:58 Dose: 15 mcg Aspirin (Aspirin) 300 mg AR QDAY [facility] Last Admin: 08/18/17 09:15 Dose: 300 mg Budesonide (Pulmicort) 0.5 mg IH Q12HRT [facility] Last Admin: 08/18/17 07:58 Dose: 0.5 mg Dextrose (D50w (25gm) Syringe) 50 ml IV PRN PRN PRN Reason: Hypoglycemia Enoxaparin Sodium (Lovenox) 40 mg SUB-Q QDAY [facility] Last Admin: 08/18/17 09:15 Dose: 40 mg Famotidine (Pepcid) 20 mg IV BID [facility] Last Admin: 08/18/17 09:14 Dose: 20 mg Fentanyl (Sublimaze) 50 mcg IV Q2H PRN PRN Reason: Pain Last Admin: 08/18/17 09:13 Dose: 50 mcg Hydralazine HCl (Apresoline) 10 mg IV Q4H PRN PRN Reason: Hypertension Last Admin: 08/18/17 03:59 Dose: 10 mg Hydrophilic Ointment (Vaseline Lip Therapy) 1 applic TP Q2HR PRN PRN Reason: Dry Lips Piperacillin Sod/Tazobactam Sod (Zosyn/Ns 4.5gm/100ml) 4.5 gm in 100 mls @ 200 mls/hr IV Q8H [facility]; Protocol Last Admin: 08/18/17 09:13 Dose: 200 mls/hr Propofol (Diprivan 10 Mg/Ml) 1,000 mg in 100 mls @ 3.674 mls/hr IV TITR [facility]; Protocol Last Admin: 08/18/17 04:24 Dose: 10 mcg/kg/min, 7.348 mls/hr Insulin Human Lispro (Humalog) 0 unit SUB-Q Q6HR [facility]; Protocol Last Admin: 08/18/17 06:19 Dose: Not Given Metoprolol Tartrate (Lopressor) 5 mg IV Q6H [facility] Last Admin: 08/18/17 09:14 Dose: 5 mg Nicotine (Habitrol) 21 mg TD QDAY [facility] Last Admin: 08/18/17 09:15 Dose: 21 mg Sodium Chloride (Nacl 0.9% 500 Ml) 1 ml IV DIRECT [facility] Physical Examination Vital Signs Pulse Pulse Ox 141 H 93 08/16/17 05:26 08/16/17 05:26 General appearance: obese, other (intubated on mechanical ventilation) Cardiac: Positive: Reg Rate and Rhythm Lungs: Positive: Decreased Breath Sounds Results 08/18/17 09:52 08/18/17 09:52 CBC 08/18/17 Range/Units 09:52 WBC 10.5 (4.5-11.0) K/mm3 RBC 4.34 (3.65-5.03) M/mm3 Hgb 11.2 (10.1-14.3) gm/dl Hct 34.1 (30.3-42.9) % Plt Count 215 (140-440) K/mm3 Lymph # 1.8 (1.2-5.4) K/mm3 Yell # 0.8 (0.0-0.8) K/mm3 Eos # 0.0 (0.0-0.4) K/mm3 Baso # 0.0 (0.0-0.1) K/mm3 Comprehensive Metabolic Panel 08/18/17 Range/Units 09:52 Sodium 146 H (137-145) mmol/L Potassium 3.2 L (3.6-5.0) mmol/L Chloride 111.2 H (98-107) mmol/L Carbon Dioxide 18 L (22-30) mmol/L BUN 14 (7-17) mg/dL Creatinine 1.1 (0.7-1.2) mg/dL Glucose 123 H (65-100) mg/dL Calcium 8.0 L (8.4-10.2) mg/dL Assessment and Plan Acute respiratory failure Hypertension Hx of CAD s/p PCI 08/2016 Obesity Tobacco abuse Normal LVEF 50-55% on echocardiogram this admission.
[2017-08-18] MEDS: COZAAR PO SCH (17:55)
[2017-08-18] MEDS ORDERED: PLAVIX PO SCH (18:00)
--- NOTE | 2017-08-18 18:42 | Progress Note ---
Assessment and Plan Assessment and plan: Patient is a 42 year old female with history of Morbid obesity, DM, CAD on plavix who presented to the ER via EMS after they recieved a call about from patient about persistent nausea and vomiting with shortness of breath. Patient was placed on CPAP at her residence but was with no improvement and impending respiratory failure resulting in intubation at the ER. At the time of my evaluation, patient was already intubated. Per the ED physician the patient had significant oral secretions and hence high suspicion of Aspiration Acute Respiratory failure requiring mechanical ventilation Sepsis/pneumonia ruled out. Prevailing thought is respiratory failure secondary to hypercapnic with hypoxic respiratory failure Acute Kidney injury with vasomotor nephropathy-now resolved CAD Hyperglycemia suspect DM Hypokalemia Morbid obesity Metabolic Acidosis Tobacco Dependence Plan Continue ICU care Strict I/O Cardiology input noted if he started via NG tube. Dietitian consultation Discontinue Capps a.m. as renal function is improved Continue weaning trials per pulmonary/transmission assembler Agree with control of blood pressure monitor closely. Replace electrolytes The high probability of a clinically significant, sudden or life threatening deterioration of the [pulmonary, GI, renal] system(s) required my full and direct attention, intervention and personal management. The aggregate critical care time was [45] minutes. This time is in addition to time spent performing reported procedures but includes the following: [X] Data Review and interpretation [X] Patient assessment and monitoring of vital signs [X] Documentation [X] Medication orders and management History Interval history: Patient seen and examined, remains intubated but awakens to verbal stimuli and follows commands. Hospitalist Physical - Physical exam Narrative exam: General appearance: Present: severe distress, other (on mechanical ventilation) - EENT Eyes: Present: PERRL - Neck Neck: Present: supple, normal ROM - Respiratory Respiratory effort: labored Respiratory: bilateral: diminished - Cardiovascular Heart Sounds: Present: S1 & S2 (tachycardia) - Extremities Extremities: no ischemia, pulses intact, pulses symmetrical, No edema, normal temperature, normal color Peripheral Pulses: within normal limits - Abdominal General gastrointestinal: Present: soft, non-tender, normal bowel sounds - Integumentary Integumentary: Present: clear, warm, dry - Musculoskeletal Musculoskeletal: other, moves all extremities. - Psychiatric Psychiatric: agitated - Neurologic Neurologic: other moves all extrimities. no focal deficit - Constitutional Vitals: Temp Pulse Resp BP Pulse Ox 98.3 F 107 H 18 144/82 100 08/18/17 15:52 08/18/17 17:55 08/18/17 17:20 08/18/17 17:55 08/18/17 17:20 General appearance: Present: obese, other (intubated on mechanical ventilation) Results - Labs CBC & Chem 7: 08/18/17 09:52 04 09:52 Labs: Laboratory Last Values WBC 10.5 K/mm3 (4.5-11.0) 08/18/17 09:52 RBC 4.34 M/mm3 (3.65-5.03) 08/18/17 09:52 Hgb 11.2 gm/dl (10.1-14.3) 08/18/17 09:52 Hct 34.1 % (30.3-42.9) 08/18/17 09:52 MCV 79 fl (79-97) 08/18/17 09:52 MCH 26 pg (28-32) L 08/18/17 09:52 MCHC 33 % (30-34) 08/18/17 09:52 RDW 14.3 % (13.2-15.2) 08/18/17 09:52 Plt Count 215 K/mm3 (140-440) 08/18/17 09:52 Lymph % (Auto) 17.1 % (13.4-35.0) 08/18/17 09:52 [place] % (Auto) 7.3 % (0.0-7.3) 08/18/17 09:52 Eos % (Auto) 0.3 % (0.0-4.3) 08/18/17 09:52 Baso % (Auto) 0.4 % (0.0-1.8) 08/18/17 09:52 Lymph # 1.8 K/mm3 (1.2-5.4) 08/18/17 09:52 [place] # 0.8 K/mm3 (0.0-0.8) 08/18/17 09:52 Eos # 0.0 K/mm3 (0.0-0.4) 08/18/17 09:52 Baso # 0.0 K/mm3 (0.0-0.1) 08/18/17 09:52 Add Manual Diff Complete 08/16/17 06:00 Total Counted 100 08/16/17 06:00 Seg Neutrophils % 74.9 % (40.0-70.0) H 08/18/17 09:52 Seg Neuts % (Manual) 41.0 % (40.0-70.0) 08/16/17 06:00 Band Neutrophils % 6.0 % 08/16/17 06:00 Lymphocytes % (Manual) 48.0 % (13.4-35.0) H 08/16/17 06:00 Reactive Lymphs % (Man) 0 % 08/16/17 06:00 Monocytes % (Manual) 3.0 % (0.0-7.3) 08/16/17 06:00 Eosinophils % (Manual) 1.0 % (0.0-4.3) 08/16/17 06:00 Basophils % (Manual) 1.0 % (0.0-1.8) 08/16/17 06:00 Metamyelocytes % 0 % 08/16/17 06:00 Myelocytes % 0 % 08/16/17 06:00 Promyelocytes % 0 % 08/16/17 06:00 Blast Cells % 0 % 08/16/17 06:00 Nucleated RBC % Not Reportable 08/16/17 06:00 Seg Neutrophils # 7.9 K/mm3 (1.8-7.7) H 08/18/17 09:52 Seg Neutrophils # Man 5.2 K/mm3 (1.8-7.7) 08/16/17 06:00 Band Neutrophils # 0.8 K/mm3 08/16/17 06:00 Lymphocytes # (Manual) 6.1 K/mm3 (1.2-5.4) H 08/16/17 06:00 Abs React Lymphs (Man) 0.0 K/mm3 08/16/17 06:00 Monocytes # (Manual) 0.4 K/mm3 (0.0-0.8) 08/16/17 06:00 Eosinophils # (Manual) 0.1 K/mm3 (0.0-0.4) 08/16/17 06:00 Basophils # (Manual) 0.1 K/mm3 (0.0-0.1) 08/16/17 06:00 Metamyelocytes # 0.0 K/mm3 08/16/17 06:00 Myelocytes # 0.0 K/mm3 08/16/17 06:00 Promyelocytes # 0.0 K/mm3 08/16/17 06:00 Blast Cells # 0.0 K/mm3 08/16/17 06:00 WBC Morphology Not Reportable 08/16/17 06:00 Hypersegmented Neuts Not Reportable 08/16/17 06:00 Hyposegmented Neuts Not Reportable 08/16/17 06:00 Hypogranular Neuts Not Reportable 08/16/17 06:00 Smudge Cells Not Reportable 08/16/17 06:00 Toxic Granulation Not Reportable 08/16/17 06:00 Toxic Vacuolation Not Reportable 08/16/17 06:00 Dohle Bodies Not Reportable 08/16/17 06:00 Pelger-Huet Anomaly Not Reportable 08/16/17 06:00 Barbara Rods Not Reportable 08/16/17 06:00 Platelet Estimate Appears normal 08/16/17 06:00 Clumped Platelets Not Reportable 08/16/17 06:00 Plt Clumps, EDTA Not Reportable 08/16/17 06:00 Large Platelets Not Reportable 08/16/17 06:00 Giant Platelets Not Reportable 08/16/17 06:00 Platelet Satelliting Not Reportable 08/16/17 06:00 Plt Morphology Comment Not Reportable 08/16/17 06:00 RBC Morphology Normal 08/16/17 06:00 Dimorphic RBCs Not Reportable 08/16/17 06:00 Polychromasia Not Reportable 08/16/17 06:00 Hypochromasia Not Reportable 08/16/17 06:00 Poikilocytosis Not Reportable 08/16/17 06:00 Anisocytosis Not Reportable 08/16/17 06:00 Microcytosis Not Reportable 08/16/17 06:00 Macrocytosis Not Reportable 08/16/17 06:00 Spherocytes Not Reportable 08/16/17 06:00 Pappenheimer Bodies Not Reportable 08/16/17 06:00 Sickle Cells Not Reportable 08/16/17 06:00 Target Cells Not Reportable 08/16/17 06:00 Tear Drop Cells Not Reportable 08/16/17 06:00 Ovalocytes Not Reportable 08/16/17 06:00 Helmet Cells Not Reportable 08/16/17 06:00 Pulido-[place] Bodies Not Reportable 08/16/17 06:00 [place] Rings Not Reportable 08/16/17 06:00 [place] Cells Not Reportable 08/16/17 06:00 Bite Cells Not Reportable 08/16/17 06:00 Crenated Cell Not Reportable 08/16/17 06:00 Elliptocytes Not Reportable 08/16/17 06:00 Acanthocytes (Spur) Not Reportable 08/16/17 06:00 Rouleaux Not Reportable 08/16/17 06:00 Hemoglobin C Crystals Not Reportable 08/16/17 06:00 Schistocytes Not Reportable 08/16/17 06:00 Malaria parasites Not Reportable 08/16/17 06:00 Malcolm Bodies Not Reportable 08/16/17 06:00 Hem Pathologist Commnt No 08/16/17 06:00 POC ABG pH 7.422 (7.35-7.45) 08/18/17 04:20 POC ABG pCO2 28.7 (35-45) L 08/18/17 04:20 POC ABG pO2 130 (80-105) H 08/18/17 04:20 POC ABG HCO3 18.7 08/18/17 04:20 POC ABG Total CO2 20 08/18/17 04:20 POC ABG O2 Sat 99 08/18/17 04:20 POC ABG Base Excess -6 08/18/17 04:20 FiO2 50 % 08/18/17 04:20 Sodium 146 mmol/L (137-145) H 08/18/17 09:52 Potassium 3.2 mmol/L (3.6-5.0) L 08/18/17 09:52 Chloride 111.2 mmol/L (98-107) H 08/18/17 09:52 Carbon Dioxide 18 mmol/L (22-30) L 08/18/17 09:52 Anion Gap 20 mmol/L 08/18/17 09:52 BUN 14 mg/dL (7-17) 08/18/17 09:52 Creatinine 1.1 mg/dL (0.7-1.2) 08/18/17 09:52 Estimated GFR 54 ml/min 08/18/17 09:52 BUN/Creatinine Ratio 13 % 08/18/17 09:52 Glucose 123 mg/dL (65-100) H 08/18/17 09:52 POC Glucose 104 (70-105) 08/18/17 18:05 Hemoglobin A1c 6.2 % (4-6) H 08/17/17 04:20 Lactic Acid 1.10 mmol/L (0.7-2.0) 08/17/17 04:20 Calcium 8.0 mg/dL (8.4-10.2) L 08/18/17 09:52 Phosphorus 8.80 mg/dL (2.5-4.5) H 08/16/17 06:00 Magnesium 2.10 mg/dL (1.7-2.3) 08/16/17 06:00 Total Bilirubin 0.20 mg/dL (0.1-1.2) 08/16/17 06:00 AST 61 units/L (5-40) H 08/16/17 06:00 ALT 51 units/L (7-56) 08/16/17 06:00 Alkaline Phosphatase 157 units/L (35-129) H 08/16/17 06:00 NT-Pro-B Natriuret Pep 621.2 pg/mL (0-450) H 08/16/17 06:00 Total Protein 7.3 g/dL (6.3-8.2) 08/16/17 06:00 Albumin 3.8 g/dL (3.9-5) L 08/16/17 06:00 Albumin/Globulin Ratio 1.1 % 08/16/17 06:00 Urine Color Straw (Yellow) 08/16/17 06:06 Urine Turbidity Clear (Clear) 08/16/17 06:06 Urine pH 6.0 (5.0-7.0) 08/16/17 06:06 Ur Specific [place] 1.007 (1.003-1.030) 08/16/17 06:06 Urine Protein >500 mg/dL (Negative) 08/16/17 06:06 Urine Glucose (UA) >=500 mg/dL (Negative) 08/16/17 06:06 Urine Ketones Neg mg/dL (Negative) 08/16/17 06:06 Urine Blood Sm (Negative) 08/16/17 06:06 Urine Nitrite Neg (Negative) 08/16/17 06:06 Urine Bilirubin Neg (Negative) 08/16/17 06:06 Urine Urobilinogen < 2.0 mg/dL (<2.0) 08/16/17 06:06 Ur Leukocyte Esterase Neg (Negative) 08/16/17 06:06 Urine WBC (Auto) 2.0 /HPF (0.0-6.0) 08/16/17 06:06 Urine RBC (Auto) 2.0 /HPF (0.0-6.0) 08/16/17 06:06 U Epithel Cells (Auto) < 1.0 /HPF (0-13.0) 08/16/17 06:06 Urine Creatinine 220.2 mg/dL (0.1-20.0) H 08/17/17 11:03 Urine Sodium 10 mmol/L 08/17/17 11:03 Fraction Sodium Excret 0.0 08/17/17 11:03 Urine Urea Nitrogen 1213 08/17/17 11:03 Urine Opiates Screen Presumptive negative 08/16/17 06:06 Urine Methadone Screen Presumptive negative 08/16/17 06:06 Ur Barbiturates Screen Presumptive negative 08/16/17 06:06 Ur Phencyclidine Scrn Presumptive negative 08/16/17 06:06 Ur Amphetamines Screen Presumptive negative 08/16/17 06:06 U Benzodiazepines Scrn Presumptive negative 08/16/17 06:06 Urine Cocaine Screen Presumptive negative 08/16/17 06:06 U Marijuana (THC) Screen Presumptive negative 08/16/17 06:06 Drugs of Abuse Note Disclamer 08/16/17 06:06 Blood Type B POSITIVE 08/16/17 06:15 Antibody Screen Negative 08/16/17 06:15
[2017-08-18] MEDS: LOPRESSOR PO SCH (19:02)
[2017-08-18] MEDS: EFFIENT PO SCH (19:02)
[2017-08-19] MEDS: ZOSYN/NS 4.5GM/100ML 4.5 GM/100 ML VIAL IV SCH ×3 (02:27→17:28)
--- NOTE | 2017-08-19 02:37 | XRay Report ---
FINAL REPORT EXAM: XR CHEST 1V AP HISTORY: follow up respiratory failure TECHNIQUE: A portable semi-erect view the chest was obtained and compared to the study of 08/18/2017. FINDINGS: The lungs appears slightly less congested. There are no localized infiltrates. The heart size is normal. The tip of the ET tube is 3 cm above the ike. The tip of the Dobhoff tube is in the lower stomach. The bones and soft tissues otherwise reveal obesity. IMPRESSION: Less congestion than on the previous study. No localized infiltrates.
[2017-08-19] MEDS: LOPRESSOR PO SCH ×4 (02:45→17:28)
[2017-08-19] MEDS: DIPRIVAN 10 MG/ML 1,000 MG/100 ML BOTTLE IV SCH ×3 (04:00→15:02)
[2017-08-19] MEDS: HumaLOG SUB-Q SCH ×5 (05:52→17:47)
[2017-08-19] MEDS: BROVANA NEBU IH SCH ×3 (07:54→20:06)
[2017-08-19] MEDS: PULMICORT IH SCH ×3 (07:54→20:06)
[2017-08-19] MEDS: PEPCID PO SCH ×2 (09:33→21:44)
[2017-08-19] MEDS: ASPIRIN PO SCH (09:33)
[2017-08-19] MEDS: EFFIENT PO SCH (09:33)
[2017-08-19] MEDS: HABITROL TD SCH (09:33)
[2017-08-19] MEDS: COZAAR PO SCH ×2 (09:34→21:43)
[2017-08-19] MEDS: LOVENOX SUB-Q SCH (09:35)
--- NOTE | 2017-08-19 12:20 | Progress Note ---
Assessment and Plan Imp: 1. Acute respiratory failure, hypoxia and hypercapnea; ? etiology 2. CAD s/p PCI 08/19 3. Malignant HTN on presentation with SBP > 200 4. Morbid obesity 5. CKD 6. Lactic acidosis Rec: 1. Needs better BP control; Losartan 25mg BID + Lopressor per cardiology; monitor Cr 2. Not convinced re: aspiration and sepsis; see #3 above; will d/c Vanco; f/u cultures; cont. Zosyn x 5 days total 3. Appreciate cardiology consult 4. KATARZYNA screening once extubated 5. Daily PSV trials 6. GI and DVT PPx; start TFs 7. Labs in AM 8. Klonopin 0.5mg BID to facilitate weaning from Propofol CCt 31 minutes; no family present Subjective Date of service: 08/19/17 Principal diagnosis: Acute respiratory failure Interval history: No events overnight. Agitated, tachycardic, and hypertensive upon trying to wean off Propofol this AM, so no PSV done. Did not receive Lopressor until this AM for unclear reasons. Denies chest pain. No new complaints. Active Medications Albuterol (Proventil) 2.5 mg IH Q6HRT PRN PRN Reason: Wheezing Arformoterol Tartrate (Brovana Nebu) 15 mcg IH Q12HRT [facility] Last Admin: 08/19/17 07:54 Dose: 15 mcg Aspirin (Aspirin) 325 mg PO QDAY [facility] Last Admin: 08/19/17 09:33 Dose: 325 mg Atorvastatin Calcium (Lipitor) 40 mg PO QHS [facility] Last Admin: 08/18/17 21:38 Dose: 40 mg Budesonide (Pulmicort) 0.5 mg IH Q12HRT [facility] Last Admin: 08/19/17 07:54 Dose: 0.5 mg Clonazepam (Klonopin) 0.5 mg PO BID [facility] Dextrose (D50w (25gm) Syringe) 50 ml IV PRN PRN PRN Reason: Hypoglycemia Enoxaparin Sodium (Lovenox) 40 mg SUB-Q QDAY [facility] Last Admin: 08/19/17 09:35 Dose: 40 mg Famotidine (Pepcid) 20 mg PO BID [facility] Last Admin: 08/19/17 09:33 Dose: 20 mg Fentanyl (Sublimaze) 50 mcg IV Q2H PRN PRN Reason: Pain Last Admin: 08/18/17 09:13 Dose: 50 mcg Hydralazine HCl (Apresoline) 10 mg IV Q4H PRN PRN Reason: Hypertension Last Admin: 08/18/17 03:59 Dose: 10 mg Hydrophilic Ointment (Vaseline Lip Therapy) 1 applic TP Q2HR PRN PRN Reason: Dry Lips Piperacillin Sod/Tazobactam Sod (Zosyn/Ns 4.5gm/100ml) 4.5 gm in 100 mls @ 200 mls/hr IV Q8H [facility]; Protocol Stop: 08/20/17 23:59 Last Admin: 08/19/17 07:57 Dose: 200 mls/hr Propofol (Diprivan 10 Mg/Ml) 1,000 mg in 100 mls @ 3.674 mls/hr IV TITR [facility]IGU[facility]; Protocol Last Titration: 08/19/17 09:36 Dose: 20 mcg/kg/min, 14.696 mls/hr Insulin Human Lispro (Humalog) 0 unit SUB-Q Q6HR [facility]; Protocol Last Admin: 08/19/17 05:52 Dose: Not Given Losartan Potassium (Cozaar) 25 mg PO BID [facility] Metoprolol Tartrate (Lopressor) 50 mg PO Q6H [facility] Last Admin: 08/19/17 05:51 Dose: 50 mg Nicotine (Habitrol) 21 mg TD QDAY [facility] Last Admin: 08/19/17 09:33 Dose: 21 mg Prasugrel (Effient) 10 mg PO QDAY [facility] Last Admin: 08/19/17 09:33 Dose: 10 mg Sodium Chloride (Nacl 0.9% 500 Ml) 1 ml IV DIRECT [facility] Objective Vital Signs - 12hr 08/19/17 08/19/17 08/19/17 00:30 01:00 01:30 Temperature Pulse Rate 72 74 92 H Pulse Rate [ Bilateral] Pulse Rate [ From Monitor] Respiratory 18 18 18 Rate Respiratory Rate [Bilateral ] Blood Pressure 110/68 112/67 137/88 O2 Sat by Pulse 100 100 100 Oximetry 08/19/17 08/19/17 08/19/17 02:01 02:30 02:45 Temperature Pulse Rate 91 H 83 67 Pulse Rate [ Bilateral] Pulse Rate [ From Monitor] Respiratory 18 14 Rate Respiratory Rate [Bilateral ] Blood Pressure 137/88 142/77 110/68 O2 Sat by Pulse 100 100 Oximetry 0408/19/17 08/19/17 03:00 03:30 04:00 Temperature 99.0 F Pulse Rate 82 84 88 Pulse Rate [ Bilateral] Pulse Rate [ 92 H From Monitor] Respiratory 18 18 18 Rate Respiratory Rate [Bilateral ] Blood Pressure 116/68 109/58 118/65 O2 Sat by Pulse 100 99 100 Oximetry 08/19/17 08/19/17 08/19/17 04:30 04:51 05:00 Temperature Pulse Rate 80 83 76 Pulse Rate [ Bilateral] Pulse Rate [ From Monitor] Respiratory 18 18 18 Rate Respiratory Rate [Bilateral ] Blood Pressure 117/64 117/64 126/63 O2 Sat by Pulse 100 99 100 Oximetry 08/19/17 08/19/17 08/19/17 05:30 05:51 06:00 Temperature Pulse Rate 72 83 85 Pulse Rate [ Bilateral] Pulse Rate [ From Monitor] Respiratory 18 19 Rate Respiratory Rate [Bilateral ] Blood Pressure 136/59 136/59 142/82 O2 Sat by Pulse 100 100 Oximetry 08/19/17 08/19/17 08/19/17 06:30 07:00 07:30 Temperature Pulse Rate 73 86 86 Pulse Rate [ Bilateral] Pulse Rate [ From Monitor] Respiratory 18 18 18 Rate Respiratory Rate [Bilateral ] Blood Pressure 122/79 136/78 144/85 O2 Sat by Pulse 100 100 100 Oximetry 08/19/17 08/19/17 08/19/17 07:37 07:38 07:47 Temperature 98.6 F Pulse Rate 86 Pulse Rate [ Bilateral] Pulse Rate [ 80 From Monitor] Respiratory 20 18 Rate Respiratory Rate [Bilateral ] Blood Pressure 144/85 O2 Sat by Pulse 100 100 Oximetry 08/19/17 08/19/17 08/19/17 07:55 08:01 08:12 Temperature Pulse Rate 93 H Pulse Rate [ 96 H 99 H Bilateral] Pulse Rate [ From Monitor] Respiratory 19 Rate Respiratory 24 22 Rate [Bilateral ] Blood Pressure 132/87 O2 Sat by Pulse 100 Oximetry 08/19/17 08/19/17 08/19/17 08:30 09:00 09:31 Temperature Pulse Rate 101 H 93 H 102 H Pulse Rate [ Bilateral] Pulse Rate [ From Monitor] Respiratory 19 22 20 Rate Respiratory Rate [Bilateral ] Blood Pressure 155/88 159/79 181/105 O2 Sat by Pulse 100 100 100 Oximetry 08/19/17 08/19/17 08/19/17 09:34 09:57 10:00 Temperature Pulse Rate 107 H 92 H Pulse Rate [ Bilateral] Pulse Rate [ 85 From Monitor] Respiratory 19 Rate Respiratory Rate [Bilateral ] Blood Pressure 159/79 O2 Sat by Pulse 100 Oximetry 08/19/17 12:00 Temperature 98.9 F Pulse Rate Pulse Rate [ Bilateral] Pulse Rate [ From Monitor] Respiratory Rate Respiratory Rate [Bilateral ] Blood Pressure O2 Sat by Pulse Oximetry Constitutional: alert, other (critically ill on vent) Eyes: non-icteric ENT: other (orally intubated and sedated, critically ill on vent) Neck: supple Effort: normal Ascultation: Bilateral: other (coarse BS bilaterally) Percussion: Bilateral: not dull Cardiovascular: other (appears to be sinus tachy, no mrg) Gastrointestinal: normoactive bowel sounds, soft, non-tender, non-distended Integumentary: normal Extremities: no cyanosis, no edema, pink and warm Neurologic: normal mental status, non-focal exam, pupils equal and round, CN II- XII normal Psychiatric: mood appropriate, affect normal CBC and BMP: 08/18/17 09:52 08/18/17 09:52 ABG, PT/INR, D-dimer: ABG POC ABG pH 7.478 (7.35-7.45) H 08/19/17 05:08 POC ABG pCO2 26.1 (35-45) L 08/19/17 05:08 POC ABG pO2 93 (80-105) 08/19/17 05:08 POC ABG HCO3 19.3 08/19/17 05:08 POC ABG Total CO2 20 08/19/17 05:08 POC ABG O2 Sat 98 08/19/17 05:08 Abnormal lab findings: Abnormal Labs 08/16/17 08/16/17 08/16/17 06:00 06:00 06:00 WBC 12.7 H RBC 5.28 H Hct 43.2 H MCH 26 L MCHC Seg Neutrophils % Lymphocytes % (Manual) 48.0 H Seg Neutrophils # Lymphocytes # (Manual) 6.1 H POC ABG pH POC ABG pCO2 POC ABG pO2 Sodium Potassium Chloride 96.4 L Carbon Dioxide 17 L BUN 25 H Creatinine 1.5 H Glucose 312 H POC Glucose Hemoglobin A1c Lactic Acid 4.00 H* Calcium 8.3 L Phosphorus 8.80 H AST 61 H Alkaline Phosphatase 157 H NT-Pro-B Natriuret Pep 621.2 H Albumin 3.8 L Triglycerides Urine Creatinine 08/16/17 08/16/17 08/16/17 07:24 11:57 12:07 WBC RBC Hct MCH MCHC Seg Neutrophils % Lymphocytes % (Manual) Seg Neutrophils # Lymphocytes # (Manual) POC ABG pH 7.204 L POC ABG pCO2 62.2 H POC ABG pO2 234 H Sodium Potassium Chloride Carbon Dioxide BUN Creatinine Glucose POC Glucose 138 H Hemoglobin A1c Lactic Acid 2.80 H* Calcium Phosphorus AST Alkaline Phosphatase NT-Pro-B Natriuret Pep Albumin Triglycerides Urine Creatinine 08/16/17 08/16/17 08/16/17 13:27 17:43 18:05 WBC RBC Hct MCH MCHC Seg Neutrophils % Lymphocytes % (Manual) Seg Neutrophils # Lymphocytes # (Manual) POC ABG pH POC ABG pCO2 POC ABG pO2 Sodium Potassium Chloride Carbon Dioxide BUN Creatinine 1.3 H Glucose POC Glucose 138 H Hemoglobin A1c Lactic Acid 2.20 H* Calcium Phosphorus AST Alkaline Phosphatase NT-Pro-B Natriuret Pep Albumin Triglycerides Urine Creatinine 08/17/17 08/17/17 08/17/17 00:06 04:20 04:20 WBC RBC Hct MCH 27 L MCHC 35 H Seg Neutrophils % Lymphocytes % (Manual) Seg Neutrophils # Lymphocytes # (Manual) POC ABG pH POC ABG pCO2 POC ABG pO2 Sodium Potassium 3.1 L D Chloride 107.9 H Carbon Dioxide 16 L BUN 23 H Creatinine 1.5 H Glucose 143 H POC Glucose 143 H Hemoglobin A1c Lactic Acid Calcium 7.8 L Phosphorus AST Alkaline Phosphatase NT-Pro-B Natriuret Pep Albumin Triglycerides Urine Creatinine 08/17/17 08/17/17 08/17/17 04:20 04:57 05:48 WBC RBC Hct MCH MCHC Seg Neutrophils % Lymphocytes % (Manual) Seg Neutrophils # Lymphocytes # (Manual) POC ABG pH 7.555 H POC ABG pCO2 19.3 L POC ABG pO2 140 H Sodium Potassium Chloride Carbon Dioxide BUN Creatinine Glucose POC Glucose 129 H Hemoglobin A1c 6.2 H Lactic Acid Calcium Phosphorus AST Alkaline Phosphatase NT-Pro-B Natriuret Pep Albumin Triglycerides Urine Creatinine 08/17/17 08/17/17 08/17/17 11:03 11:03 11:55 WBC RBC Hct MCH MCHC Seg Neutrophils % Lymphocytes % (Manual) Seg Neutrophils # Lymphocytes # (Manual) POC ABG pH POC ABG pCO2 POC ABG pO2 Sodium Potassium Chloride Carbon Dioxide BUN Creatinine Glucose POC Glucose 138 H Hemoglobin A1c Lactic Acid Calcium Phosphorus AST Alkaline Phosphatase NT-Pro-B Natriuret Pep Albumin Triglycerides Urine Creatinine 220.2 H 218.6 H 08/17/17 08/17/17 08/18/17 18:17 23:30 00:02 WBC RBC Hct MCH MCHC Seg Neutrophils % Lymphocytes % (Manual) Seg Neutrophils # Lymphocytes # (Manual) POC ABG pH POC ABG pCO2 33.2 L POC ABG pO2 307 H Sodium Potassium Chloride Carbon Dioxide BUN Creatinine Glucose POC Glucose 173 H 126 H Hemoglobin A1c Lactic Acid Calcium Phosphorus AST Alkaline Phosphatase NT-Pro-B Natriuret Pep Albumin Triglycerides Urine Creatinine 08/18/17 08/18/17 08/18/17 04:20 05:04 09:52 WBC RBC Hct MCH 26 L MCHC Seg Neutrophils % 74.9 H Lymphocytes % (Manual) Seg Neutrophils # 7.9 H Lymphocytes # (Manual) POC ABG pH POC ABG pCO2 28.7 L POC ABG pO2 130 H Sodium Potassium Chloride Carbon Dioxide BUN Creatinine Glucose POC Glucose 118 H Hemoglobin A1c Lactic Acid Calcium Phosphorus AST Alkaline Phosphatase NT-Pro-B Natriuret Pep Albumin Triglycerides Urine Creatinine 08/18/17 08/18/17 08/19/17 09:52 11:50 05:08 WBC RBC Hct MCH MCHC Seg Neutrophils % Lymphocytes % (Manual) Seg Neutrophils # Lymphocytes # (Manual) POC ABG pH 7.478 H POC ABG pCO2 26.1 L POC ABG pO2 Sodium 146 H Potassium 3.2 L Chloride 111.2 H Carbon Dioxide 18 L BUN Creatinine Glucose 123 H POC Glucose 106 H Hemoglobin A1c Lactic Acid Calcium 8.0 L Phosphorus AST Alkaline Phosphatase NT-Pro-B Natriuret Pep Albumin Triglycerides Urine Creatinine 08/19/17 08/19/17 05:26 09:03 WBC RBC Hct MCH MCHC Seg Neutrophils % Lymphocytes % (Manual) Seg Neutrophils # Lymphocytes # (Manual) POC ABG pH POC ABG pCO2 POC ABG pO2 Sodium Potassium Chloride Carbon Dioxide BUN Creatinine Glucose POC Glucose 109 H Hemoglobin A1c Lactic Acid Calcium Phosphorus AST Alkaline Phosphatase NT-Pro-B Natriuret Pep Albumin Triglycerides 167 H Urine Creatinine Chest x-ray: report reviewed, image reviewed (improving congestion)
--- NOTE | 2017-08-19 13:13 | Progress Note ---
Assessment and Plan Acute respiratory failure Hypertension Hx of CAD s/p PCI 08/2016 Obesity Tobacco abuse Normal LVEF 50-55% on echocardiogram this admission. Subjective Date of service: 08/19/17 Principal diagnosis: Acute respiratory failure Interval history: Patient is alert and intubated on mechanical ventilation. Objective Vital Signs Temp Pulse Pulse Pulse Pulse Resp Resp 08/19/17 12:40 107 H 08/19/17 12:00 98.9 F 93 H 19 08/19/17 11:31 107 H 19 08/19/17 11:00 81 18 08/19/17 10:30 92 H 19 08/19/17 10:00 91 H 20 08/19/17 09:57 85 19 08/19/17 09:34 107 H 08/19/17 09:31 102 H 20 08/19/17 09:00 93 H 22 08/19/17 08:30 101 H 19 08/19/17 08:12 99 H 08/19/17 08:01 93 H 19 08/19/17 07:55 96 H 08/19/17 07:47 98.6 F 08/19/17 07:38 86 18 08/19/17 07:37 80 20 18 07:30 86 18 08/19/17 07:00 86 18 08/19/17 06:30 73 18 08/19/17 06:00 85 19 08/19/17 05:51 83 18 05:30 72 18 08/19/17 05:00 76 18 18 04:51 83 18 18 04:30 80 18 08/19/17 04:00 99.0 F 88 92 H 18 18 03:30 84 18 18 03:00 82 18 18 02:45 67 18 02:30 83 14 18 02:01 91 H 18 18 01:30 92 H 18 18 01:00 74 18 18 00:30 72 18 17/18 00:01 79 18 08/19/17 00:00 99.6 F 77 74 24 18 23:30 87 18 18 23:00 87 18 18 22:30 91 H 18 04/16/18 22:00 87 18 04/16/18 21:45 91 H 18 04/16/18 21:30 91 H 18 04/16/18 21:06 105 H 18 04/16/18 21:00 108 H 18 04/16/18 20:30 110 H 19 04/16/18 20:21 86 18 04/16/18 20:11 88 18 04/16/18 20:02 91 H 18 04/16/18 20:00 100.5 F H 87 103 H 24 04/16/18 19:51 91 H 18 04/16/18 19:41 79 18 04/16/18 19:30 95 H 18 04/16/18 19:21 109 H 19 04/16/18 19:11 102 H 18 04/16/18 19:02 107 H 04/16/18 19:00 102 H 18 04/16/18 18:51 106 H 18 04/16/18 18:41 102 H 18 04/16/18 18:31 111 H 18 04/16/18 18:21 100 H 18 04/16/18 18:11 102 H 18 04/16/18 18:01 103 H 18 04/16/18 17:55 107 H 04/16/18 17:51 107 H 18 04/16/18 17:41 146 H 22 04/16/18 17:30 96 H 18 04/16/18 17:21 100 H 18 04/16/18 17:20 97 H 18 04/16/18 17:11 96 H 18 04/16/18 17:00 98 H 18 04/16/18 16:51 110 H 18 04/16/18 16:41 83 18 04/16/18 16:30 93 H 18 04/16/18 16:21 100 H 18 04/16/18 16:11 94 H 18 04/16/18 16:01 93 H 18 04/16/18 16:00 119 H 18 04/16/18 15:52 98.3 F 04/16/18 15:51 85 18 04/16/18 15:41 85 18 04/16/18 15:30 90 18 04/16/18 15:21 76 18 04/16/18 15:11 92 H 18 04/16/18 15:00 98 H 18 04/16/18 14:51 108 H 18 04/16/18 14:41 104 H 19 08/18/17 14:30 102 H 18 08/18/17 14:21 104 H 18 08/18/17 14:11 106 H 18 08/18/17 14:01 114 H 18 08/18/17 13:51 102 H 21 08/18/17 13:41 103 H 19 08/18/17 13:30 105 H 21 08/18/17 13:21 102 H 17 Resp BP Pulse Ox 08/19/17 12:40 169/147 08/19/17 12:00 153/97 100 08/19/17 11:31 155/87 100 08/19/17 11:00 154/90 100 08/19/17 10:30 181/102 100 08/19/17 10:00 181/102 100 08/19/17 09:57 100 08/19/17 09:34 159/79 08/19/17 09:31 181/105 100 08/19/17 09:00 159/79 100 08/19/17 08:30 155/88 100 08/19/17 08:12 22 08/19/17 08:01 132/87 100 08/19/17 07:55 24 08/19/17 07:47 08/19/17 07:38 144/85 100 18 07:37 100 08/19/17 07:30 144/85 100 18 07:00 136/78 100 18 06:30 122/79 100 18 06:00 142/82 100 18 05:51 136/59 18 05:30 136/59 100 18 05:00 126/63 100 18 04:51 117/64 99 18 04:30 117/64 100 18 04:00 118/65 100 18 03:30 109/58 99 18 03:00 116/68 100 18 02:45 110/68 18 02:30 142/77 100 18 02:01 137/88 100 1718 01:30 137/88 100 18 01:00 112/67 100 18 00:30 110/68 100 04/17/18 00:01 117/61 100 04/17/18 00:00 99/62 100 04/16/18 23:30 117/61 100 04/16/18 23:00 112/65 100 04/16/18 22:30 115/68 100 04/16/18 22:00 122/63 100 04/16/18 21:45 129/77 100 04/16/18 21:30 129/77 100 04/16/18 21:06 04/16/18 21:00 157/87 100 04/16/18 20:30 150/88 100 04/16/18 20:21 127/72 100 04/16/18 20:11 127/72 100 04/16/18 20:02 127/72 100 04/16/18 20:00 127/72 100 04/16/18 19:51 133/80 100 04/16/18 19:41 133/80 100 04/16/18 19:30 133/80 100 04/16/18 19:21 151/89 100 04/16/18 19:11 151/89 100 04/16/18 19:02 164/90 04/16/18 19:00 151/89 100 04/16/18 18:51 164/90 100 04/16/18 18:41 175/96 100 04/16/18 18:31 175/96 100 04/16/18 18:21 151/88 100 04/16/18 18:11 151/88 100 04/16/18 18:01 151/88 100 04/16/18 17:55 144/82 04/16/18 17:51 144/82 100 04/16/18 17:41 144/82 100 04/16/18 17:30 144/82 100 04/16/18 17:21 141/87 100 04/16/18 17:20 162/91 100 04/16/18 17:11 141/87 100 04/16/18 17:00 141/87 100 04/16/18 16:51 138/81 100 04/16/18 16:41 138/81 100 04/16/18 16:30 138/81 100 04/16/18 16:21 134/78 100 04/16/18 16:11 134/78 100 04/16/18 16:01 134/78 100 04/16/18 16:00 100 08/18/17 15:52 08/18/17 15:51 169/91 100 08/18/17 15:41 169/91 100 08/18/17 15:30 169/91 100 08/18/17 15:21 184/97 100 08/18/17 15:11 184/97 100 08/18/17 15:00 184/97 100 08/18/17 14:51 159/97 100 08/18/17 14:41 159/97 100 08/18/17 14:30 159/97 100 08/18/17 14:21 164/104 100 08/18/17 14:11 164/104 100 08/18/17 14:01 164/104 100 08/18/17 13:51 173/101 100 08/18/17 13:41 173/101 100 08/18/17 13:30 173/101 100 08/18/17 13:21 156/86 100 - Physical Examination General: Other (intubated on the vent) Cardiac: Positive: Reg Rate and Rhythm - Labs and Meds Lipids 08/19/17 Range/Units 09:03 Triglycerides 167 H (2-149) mg/dL
[2017-08-19] MEDS ORDERED: PANCREAZE DR 10,500 UNIT FEEDTUBE PRN (14:24)
[2017-08-19] MEDS ORDERED: SODIUM BICARBONATE FEEDTUBE PRN (14:24)
[2017-08-19] MEDS ORDERED: SIMPLE SYRUP FEEDTUBE PRN ×2 (14:24)
[2017-08-19] MEDS: LOPRESSOR IV SCH (14:55)
--- NOTE | 2017-08-19 21:09 | Progress Note ---
Assessment and Plan Assessment and plan: Patient is a 42 year old female with history of Morbid obesity, DM, CAD on plavix who presented to the ER via EMS after they recieved a call about from patient about persistent nausea and vomiting with shortness of breath. Patient was placed on CPAP at her residence but was with no improvement and impending respiratory failure resulting in intubation at the ER. At the time of my evaluation, patient was already intubated. Per the ED physician the patient had significant oral secretions and hence high suspicion of Aspiration Acute Respiratory failure requiring mechanical ventilation Sepsis/pneumonia ruled out. Prevailing thought is respiratory failure secondary to hypercapnic with hypoxic respiratory failure Acute Kidney injury with vasomotor nephropathy-now resolved CAD Hyperglycemia suspect DM Hypokalemia Morbid obesity Metabolic Acidosis Tobacco Dependence Plan Continue ICU care Strict I/O Cardiology input noted if he started via NG tube. Dietitian consultation Discontinue Capps a.m. as renal function is improved Continue weaning trials per pulmonary/chief business development officer Agree with control of blood pressure monitor closely. Replace electrolytes The high probability of a clinically significant, sudden or life threatening deterioration of the [pulmonary, GI, renal] system(s) required my full and direct attention, intervention and personal management. The aggregate critical care time was [45] minutes. This time is in addition to time spent performing reported procedures but includes the following: [X] Data Review and interpretation [X] Patient assessment and monitoring of vital signs [X] Documentation [X] Medication orders and management History Interval history: Patient seen and examined, remains intubated but awakens to verbal stimuli and follows commands, Some agitation, otherwise stable Hospitalist Physical - Physical exam Narrative exam: General appearance: Present: severe distress, other (on mechanical ventilation) - EENT Eyes: Present: PERRL - Neck Neck: Present: supple, normal ROM - Respiratory Respiratory effort: labored Respiratory: bilateral: diminished - Cardiovascular Heart Sounds: Present: S1 & S2 - Extremities Extremities: no ischemia, pulses intact, pulses symmetrical, No edema, normal temperature, normal color Peripheral Pulses: within normal limits - Abdominal General gastrointestinal: Present: soft, non-tender, normal bowel sounds - Integumentary Integumentary: Present: clear, warm, dry - Musculoskeletal Musculoskeletal: other, moves all extremities. - Psychiatric Psychiatric: agitated - Neurologic Neurologic: other moves all extrimities. no focal deficit - Constitutional Vitals: Temp Pulse Resp BP Pulse Ox 99.3 F 94 H 18 135/81 100 08/19/17 19:45 08/19/17 20:13 08/19/17 20:13 08/19/17 19:30 08/19/17 19:30 General appearance: Present: obese, other (intubated on mechanical ventilation) Results - Labs CBC & Chem 7: 08/18/17 09:52 04 09:52 Labs: Laboratory Last Values WBC 10.5 K/mm3 (4.5-11.0) 08/18/17 09:52 RBC 4.34 M/mm3 (3.65-5.03) 08/18/17 09:52 Hgb 11.2 gm/dl (10.1-14.3) 08/18/17 09:52 Hct 34.1 % (30.3-42.9) 08/18/17 09:52 MCV 79 fl (79-97) 08/18/17 09:52 MCH 26 pg (28-32) L 08/18/17 09:52 MCHC 33 % (30-34) 08/18/17 09:52 RDW 14.3 % (13.2-15.2) 08/18/17 09:52 Plt Count 215 K/mm3 (140-440) 08/18/17 09:52 Lymph % (Auto) 17.1 % (13.4-35.0) 08/18/17 09:52 [place] % (Auto) 7.3 % (0.0-7.3) 08/18/17 09:52 Eos % (Auto) 0.3 % (0.0-4.3) 08/18/17 09:52 Baso % (Auto) 0.4 % (0.0-1.8) 08/18/17 09:52 Lymph # 1.8 K/mm3 (1.2-5.4) 08/18/17 09:52 [place] # 0.8 K/mm3 (0.0-0.8) 08/18/17 09:52 Eos # 0.0 K/mm3 (0.0-0.4) 08/18/17 09:52 Baso # 0.0 K/mm3 (0.0-0.1) 08/18/17 09:52 Add Manual Diff Complete 08/16/17 06:00 Total Counted 100 08/16/17 06:00 Seg Neutrophils % 74.9 % (40.0-70.0) H 08/18/17 09:52 Seg Neuts % (Manual) 41.0 % (40.0-70.0) 08/16/17 06:00 Band Neutrophils % 6.0 % 08/16/17 06:00 Lymphocytes % (Manual) 48.0 % (13.4-35.0) H 08/16/17 06:00 Reactive Lymphs % (Man) 0 % 08/16/17 06:00 Monocytes % (Manual) 3.0 % (0.0-7.3) 08/16/17 06:00 Eosinophils % (Manual) 1.0 % (0.0-4.3) 08/16/17 06:00 Basophils % (Manual) 1.0 % (0.0-1.8) 08/16/17 06:00 Metamyelocytes % 0 % 08/16/17 06:00 Myelocytes % 0 % 08/16/17 06:00 Promyelocytes % 0 % 08/16/17 06:00 Blast Cells % 0 % 08/16/17 06:00 Nucleated RBC % Not Reportable 08/16/17 06:00 Seg Neutrophils # 7.9 K/mm3 (1.8-7.7) H 08/18/17 09:52 Seg Neutrophils # Man 5.2 K/mm3 (1.8-7.7) 08/16/17 06:00 Band Neutrophils # 0.8 K/mm3 08/16/17 06:00 Lymphocytes # (Manual) 6.1 K/mm3 (1.2-5.4) H 08/16/17 06:00 Abs React Lymphs (Man) 0.0 K/mm3 08/16/17 06:00 Monocytes # (Manual) 0.4 K/mm3 (0.0-0.8) 08/16/17 06:00 Eosinophils # (Manual) 0.1 K/mm3 (0.0-0.4) 08/16/17 06:00 Basophils # (Manual) 0.1 K/mm3 (0.0-0.1) 08/16/17 06:00 Metamyelocytes # 0.0 K/mm3 08/16/17 06:00 Myelocytes # 0.0 K/mm3 08/16/17 06:00 Promyelocytes # 0.0 K/mm3 08/16/17 06:00 Blast Cells # 0.0 K/mm3 08/16/17 06:00 WBC Morphology Not Reportable 08/16/17 06:00 Hypersegmented Neuts Not Reportable 08/16/17 06:00 Hyposegmented Neuts Not Reportable 08/16/17 06:00 Hypogranular Neuts Not Reportable 08/16/17 06:00 Smudge Cells Not Reportable 08/16/17 06:00 Toxic Granulation Not Reportable 08/16/17 06:00 Toxic Vacuolation Not Reportable 08/16/17 06:00 Dohle Bodies Not Reportable 08/16/17 06:00 Pelger-Huet Anomaly Not Reportable 08/16/17 06:00 Barbara Rods Not Reportable 08/16/17 06:00 Platelet Estimate Appears normal 08/16/17 06:00 Clumped Platelets Not Reportable 08/16/17 06:00 Plt Clumps, EDTA Not Reportable 08/16/17 06:00 Large Platelets Not Reportable 08/16/17 06:00 Giant Platelets Not Reportable 08/16/17 06:00 Platelet Satelliting Not Reportable 08/16/17 06:00 Plt Morphology Comment Not Reportable 08/16/17 06:00 RBC Morphology Normal 08/16/17 06:00 Dimorphic RBCs Not Reportable 08/16/17 06:00 Polychromasia Not Reportable 08/16/17 06:00 Hypochromasia Not Reportable 08/16/17 06:00 Poikilocytosis Not Reportable 08/16/17 06:00 Anisocytosis Not Reportable 08/16/17 06:00 Microcytosis Not Reportable 08/16/17 06:00 Macrocytosis Not Reportable 08/16/17 06:00 Spherocytes Not Reportable 08/16/17 06:00 Pappenheimer Bodies Not Reportable 08/16/17 06:00 Sickle Cells Not Reportable 08/16/17 06:00 Target Cells Not Reportable 08/16/17 06:00 Tear Drop Cells Not Reportable 08/16/17 06:00 Ovalocytes Not Reportable 08/16/17 06:00 Helmet Cells Not Reportable 08/16/17 06:00 Pulido-[place] Bodies Not Reportable 08/16/17 06:00 [place] Rings Not Reportable 08/16/17 06:00 [place] Cells Not Reportable 08/16/17 06:00 Bite Cells Not Reportable 08/16/17 06:00 Crenated Cell Not Reportable 08/16/17 06:00 Elliptocytes Not Reportable 08/16/17 06:00 Acanthocytes (Spur) Not Reportable 08/16/17 06:00 Rouleaux Not Reportable 08/16/17 06:00 Hemoglobin C Crystals Not Reportable 08/16/17 06:00 Schistocytes Not Reportable 08/16/17 06:00 Malaria parasites Not Reportable 08/16/17 06:00 Malcolm Bodies Not Reportable 08/16/17 06:00 Hem Pathologist Commnt No 08/16/17 06:00 POC ABG pH 7.478 (7.35-7.45) H 08/19/17 05:08 POC ABG pCO2 26.1 (35-45) L 08/19/17 05:08 POC ABG pO2 93 (80-105) 08/19/17 05:08 POC ABG HCO3 19.3 08/19/17 05:08 POC ABG Total CO2 20 08/19/17 05:08 POC ABG O2 Sat 98 08/19/17 05:08 POC ABG Base Excess -4 08/19/17 05:08 FiO2 40 % 08/19/17 05:08 Sodium 146 mmol/L (137-145) H 08/18/17 09:52 Potassium 3.2 mmol/L (3.6-5.0) L 08/18/17 09:52 Chloride 111.2 mmol/L (98-107) H 08/18/17 09:52 Carbon Dioxide 18 mmol/L (22-30) L 08/18/17 09:52 Anion Gap 20 mmol/L 08/18/17 09:52 BUN 14 mg/dL (7-17) 08/18/17 09:52 Creatinine 1.1 mg/dL (0.7-1.2) 08/18/17 09:52 Estimated GFR 54 ml/min 08/18/17 09:52 BUN/Creatinine Ratio 13 % 08/18/17 09:52 Glucose 123 mg/dL (65-100) H 08/18/17 09:52 POC Glucose 87 (70-105) 08/19/17 17:25 Hemoglobin A1c 6.2 % (4-6) H 08/17/17 04:20 Lactic Acid 1.10 mmol/L (0.7-2.0) 08/17/17 04:20 Calcium 8.0 mg/dL (8.4-10.2) L 08/18/17 09:52 Phosphorus 8.80 mg/dL (2.5-4.5) H 08/16/17 06:00 Magnesium 2.10 mg/dL (1.7-2.3) 08/16/17 06:00 Total Bilirubin 0.20 mg/dL (0.1-1.2) 08/16/17 06:00 AST 61 units/L (5-40) H 08/16/17 06:00 ALT 51 units/L (7-56) 08/16/17 06:00 Alkaline Phosphatase 157 units/L (35-129) H 08/16/17 06:00 NT-Pro-B Natriuret Pep 621.2 pg/mL (0-450) H 08/16/17 06:00 Total Protein 7.3 g/dL (6.3-8.2) 08/16/17 06:00 Albumin 3.8 g/dL (3.9-5) L 08/16/17 06:00 Albumin/Globulin Ratio 1.1 % 08/16/17 06:00 Triglycerides 167 mg/dL (2-149) H 08/19/17 09:03 Urine Color Straw (Yellow) 08/16/17 06:06 Urine Turbidity Clear (Clear) 08/16/17 06:06 Urine pH 6.0 (5.0-7.0) 08/16/17 06:06 Ur Specific [place] 1.007 (1.003-1.030) 08/16/17 06:06 Urine Protein >500 mg/dL (Negative) 08/16/17 06:06 Urine Glucose (UA) >=500 mg/dL (Negative) 08/16/17 06:06 Urine Ketones Neg mg/dL (Negative) 08/16/17 06:06 Urine Blood Sm (Negative) 08/16/17 06:06 Urine Nitrite Neg (Negative) 08/16/17 06:06 Urine Bilirubin Neg (Negative) 08/16/17 06:06 Urine Urobilinogen < 2.0 mg/dL (<2.0) 08/16/17 06:06 Ur Leukocyte Esterase Neg (Negative) 08/16/17 06:06 Urine WBC (Auto) 2.0 /HPF (0.0-6.0) 08/16/17 06:06 Urine RBC (Auto) 2.0 /HPF (0.0-6.0) 08/16/17 06:06 U Epithel Cells (Auto) < 1.0 /HPF (0-13.0) 08/16/17 06:06 Urine Creatinine 220.2 mg/dL (0.1-20.0) H 08/17/17 11:03 Urine Sodium 10 mmol/L 08/17/17 11:03 Fraction Sodium Excret 0.0 08/17/17 11:03 Urine Urea Nitrogen 1213 08/17/17 11:03 Urine Opiates Screen Presumptive negative 08/16/17 06:06 Urine Methadone Screen Presumptive negative 08/16/17 06:06 Ur Barbiturates Screen Presumptive negative 08/16/17 06:06 Ur Phencyclidine Scrn Presumptive negative 08/16/17 06:06 Ur Amphetamines Screen Presumptive negative 08/16/17 06:06 U Benzodiazepines Scrn Presumptive negative 08/16/17 06:06 Urine Cocaine Screen Presumptive negative 08/16/17 06:06 U Marijuana (THC) Screen Presumptive negative 08/16/17 06:06 Drugs of Abuse Note Disclamer 08/16/17 06:06 Blood Type B POSITIVE 08/16/17 06:15 Antibody Screen Negative 08/16/17 06:15
[2017-08-20] MEDS: DIPRIVAN 10 MG/ML 1,000 MG/100 ML BOTTLE IV SCH (00:30)
[2017-08-20] MEDS: HumaLOG SUB-Q SCH ×4 (00:31→17:03)
[2017-08-20] MEDS: ZOSYN/NS 4.5GM/100ML 4.5 GM/100 ML VIAL IV SCH ×3 (00:31→16:38)
[2017-08-20] MEDS: LOPRESSOR PO SCH ×4 (00:32→19:22)
--- NOTE | 2017-08-20 02:35 | XRay Report ---
FINAL REPORT EXAM: XR CHEST 1V AP HISTORY: follow up respiratory failure TECHNIQUE: A portable upright view the chest was obtained and compared the study of 08/19/2017. FINDINGS: The tip of the ET tube is 3 cm above the ike. The tip of the Dobhoff tube is in the mid stomach. The heart size is normal. The lungs are mildly congested. There are no localized infiltrates. The bones soft tissues otherwise are unchanged IMPRESSION: Stable mild congestion. Satisfactory position of the ET tube and Dobhoff tube.
[2017-08-20 04:51] LABS: Basophils % (Auto) 0.3 % (0.0-1.8); Eosinophils # (Auto) 0.2 K/mm3 (0.0-0.4); Eosinophils % (Auto) 2.6 % (0.0-4.3); Hematocrit 32.4 % (30.3-42.9); Hemoglobin 10.9 gm/dl (10.1-14.3); Lymphocytes # (Auto) 1.9 K/mm3 (1.2-5.4); Lymphocytes % (Auto) 22.1 % (13.4-35.0); Mean Corpuscular HGB Conc 34 % (30-34); Mean Corpuscular Hemoglobin 27 pg (28-32); Mean Corpuscular Volume 79 fl (79-97); Monocytes # (Auto) 0.7 K/mm3 (0.0-0.8); Monocytes % (Auto) 8.4 % (0.0-7.3); Platelet Count 223 K/mm3 (140-440); Red Blood Count 4.13 M/mm3 (3.65-5.03); Red Cell Distribution Width 13.9 % (13.2-15.2)
[2017-08-20 05:09] LABS: Calcium 8.1 mg/dL (8.4-10.2)
[2017-08-20] MEDS: BROVANA NEBU IH SCH ×2 (08:57→20:23)
[2017-08-20] MEDS: PULMICORT IH SCH ×2 (08:58→20:23)
--- NOTE | 2017-08-20 09:35 | Progress Note ---
Assessment and Plan Acute respiratory failure Intubated and currently on a CPAP trial Hypertension Hx of CAD s/p PCI 08/2016 on asa and effient Obesity Tobacco abuse Normal LVEF 50-55% on echocardiogram this admission. Recommendations: Continue current management No new recommendations Subjective Date of service: 08/20/17 Principal diagnosis: Acute respiratory failure Interval history: Patient is on a CPAP trial this morning Tele is showing sinus tachycardia Objective Vital Signs Temp Pulse Pulse Pulse Resp Resp BP 08/20/17 09:02 101 H 174/94 08/20/17 09:00 104 H 25 H 08/20/17 08:25 97 H 157/91 08/20/17 08:00 98.4 F 88 91 H 18 157/91 08/20/17 07:30 95 H 17 143/85 08/20/17 07:00 75 18 118/69 08/20/17 06:30 75 18 110/61 08/20/17 06:27 76 114/69 08/20/17 06:00 68 18 114/69 08/20/17 05:30 82 18 118/70 08/20/17 05:00 92 H 18 129/70 08/20/17 04:40 88 121/61 08/20/17 04:30 76 18 121/61 08/20/17 04:00 87 19 121/61 08/20/17 03:49 08/20/17 03:43 98 F 08/20/17 03:30 82 18 106/70 08/20/17 03:00 83 18 111/66 08/20/17 02:30 92 H 18 108/67 08/20/17 02:00 97 H 18 112/59 08/20/17 01:30 107 H 18 131/74 08/20/17 01:00 83 18 97/49 08/20/17 00:32 101/51 08/20/17 00:30 82 18 98/47 08/20/17 00:00 87 18 101/51 08/19/17 23:30 78 18 97/49 08/19/17 23:19 99.8 F H 08/19/17 23:08 82 18 92/52 08/19/17 23:00 81 18 92/52 08/19/17 22:30 85 18 132/75 08/19/17 22:00 92 H 19 132/75 08/19/17 21:43 96 H 132/71 18 21:30 132/71 18 21:00 96 H 18 132/75 18 20:30 91 H 20 122/67 18 20:13 94 H 18 08/19/17 20:10 92 H 18 08/19/17 20:00 94 H 18 134/74 08/19/17 19:45 99.3 F 08/19/17 19:30 116 H 21 135/81 08/19/17 19:24 93 H 141/88 08/19/17 19:00 104 H 23 141/88 18 18:30 90 18 120/70 08/19/17 18:00 93 H 20 130/70 08/19/17 17:30 105 H 19 146/83 08/19/17 17:28 103 H 128/70 08/19/17 17:00 94 H 18 128/70 08/19/17 16:30 94 H 19 125/65 08/19/17 16:05 99 H 118/65 08/19/17 16:00 95 H 19 118/65 18 15:45 08/19/17 15:37 99.3 F 08/19/17 15:30 96 H 21 120/68 08/19/17 15:00 94 H 20 110/63 08/19/17 14:30 69 18 88/45 08/19/17 14:15 22 08/19/17 14:00 70 18 98/46 08/19/17 13:30 77 18 122/56 08/19/17 13:01 94 H 19 124/60 18 13:00 94 H 124/60 18 12:40 107 H 169/147 08/19/17 12:30 111 H 21 169/147 08/19/17 12:00 98.9 F 93 H 100 H 20 153/97 08/19/17 11:31 107 H 19 155/87 08/19/17 11:00 81 18 154/90 08/19/17 10:30 92 H 19 181/102 08/19/17 10:00 91 H 20 181/102 08/19/17 09:57 85 19 08/19/17 09:34 107 H 159/79 Pulse Ox 08/20/17 09:02 100 04/18/18 09:00 18 08:25 100 1818 08:00 100 1818 07:30 100 18 07:00 100 18 06:30 100 18 06:27 041818 06:00 100 18 05:30 100 1818 05:00 98 18 04:40 100 18 04:30 100 18 04:00 100 18 03:49 99 18 03:43 0418 03:30 100 18 03:00 100 18 02:30 100 18 02:00 100 18 01:30 100 18 01:00 100 18 00:32 1818 00:30 100 1818 00:00 100 18 23:30 100 18 23:19 18 23:08 100 1718 23:00 100 18 22:30 100 1718 22:00 100 1718 21:43 1718 21:30 100 1718 21:00 100 1718 20:30 100 17/18 20:13 17/18 20:10 17/18 20:00 99 1718 19:45 1718 19:30 100 1718 19:24 100 1718 19:00 100 17/18 18:30 100 17/18 18:00 100 17/18 17:30 100 17/18 17:28 0417/18 17:00 100 1718 16:30 100 17/18 16:05 100 17/18 16:00 100 17/18 15:45 99 17/18 15:37 17/18 15:30 100 1718 15:00 100 1718 14:30 100 1718 14:15 100 1718 14:00 100 04/17/18 13:30 100 04/17/18 13:01 100 08/19/17 13:00 08/19/17 12:40 08/19/17 12:30 08/19/17 12:00 08/19/17 11:31 08/19/17 11:00 100 08/19/17 10:30 08/19/17 10:00 08/19/17 09:57 08/19/17 09:34 - Physical Examination General: Other (intubated on the vent) Cardiac: Positive: Tachycardia Lungs: Positive: Ventilated Respirations Abdomen: Positive: Soft - Labs and Meds Cardiac Enzymes 08/20/17 Range/Units 04:06 AST 12 (5-40) units/L Lipids 08/19/17 Range/Units 09:03 Triglycerides 167 H (2-149) mg/dL CBC 08/20/17 Range/Units 04:06 WBC 8.5 (4.5-11.0) K/mm3 RBC 4.13 (3.65-5.03) M/mm3 Hgb 10.9 (10.1-14.3) gm/dl Hct 32.4 (30.3-42.9) % Plt Count 223 (140-440) K/mm3 Lymph # 1.9 (1.2-5.4) K/mm3 [place] # 0.7 (0.0-0.8) K/mm3 Eos # 0.2 (0.0-0.4) K/mm3 Baso # 0.0 (0.0-0.1) K/mm3 Comprehensive Metabolic Panel 08/20/17 Range/Units 04:06 Sodium 145 (137-145) mmol/L Potassium 3.2 L (3.6-5.0) mmol/L Chloride 108.3 H (98-107) mmol/L Carbon Dioxide 18 L (22-30) mmol/L BUN 18 H (7-17) mg/dL Creatinine 1.2 (0.7-1.2) mg/dL Glucose 98 (65-100) mg/dL Calcium 8.1 L (8.4-10.2) mg/dL AST 12 (5-40) units/L ALT 14 (7-56) units/L Alkaline Phosphatase 82 (35-129) units/L Total Protein 6.2 L (6.3-8.2) g/dL Albumin 3.0 L (3.9-5) g/dL
[2017-08-20] MEDS: LOVENOX SUB-Q SCH (09:59)
[2017-08-20] MEDS: APRESOLINE IV PRN (09:59)
[2017-08-20] MEDS ORDERED: MAGNESIUM SULFATE 2GM/50ML 2 GM/50 ML BAG IV ONE (10:00)
[2017-08-20] MEDS: HABITROL TD SCH (10:01)
--- NOTE | 2017-08-20 11:05 | Progress Note ---
Assessment and Plan Imp: 1. Acute respiratory failure, hypoxia and hypercapnea; ? etiology 2. CAD s/p PCI 08/19 3. Malignant HTN on presentation with SBP > 200 4. Morbid obesity 5. CKD 6. Lactic acidosis Rec: 1. Needs better BP control; Losartan 25mg BID + Lopressor per cardiology; monitor Cr 2. Not convinced re: aspiration and sepsis; see #3 above; cont. Zosyn x 5 days total 3. Appreciate cardiology consult 4. KATARZYNA screening once extubated 5. Daily PSV trials 6. GI and DVT PPx; started TFs, tolerating 7. Replete elytes today 8. Klonopin 0.5mg BID to facilitate weaning from Propofol 9. Has some pink, frothy secretions; will give a dose of Lasix IV; f/u labs in AM; consider empiric steroids if continued difficulties weaning since she is a smoker CCt 31 minutes; no family present Subjective Date of service: 08/20/17 Principal diagnosis: Acute respiratory failure Interval history: No events overnight. Propofol ran out this AM with increased HR and BP. On PSV 10/5 with borderline mechanics, RR close to 30 and TV 400-500. Awake, calm. No pain or SOB. Active Medications Albuterol (Proventil) 2.5 mg IH Q6HRT PRN PRN Reason: Wheezing Lipase/Protease/Amylase (Clement Capps 10,500 Unit) 1 each FEEDTUBE PRN PRN PRN Reason: For Clogged Feeding Tube Arformoterol Tartrate (Brovana Nebu) 15 mcg IH Q12HRT [facility] Last Admin: 08/20/17 08:57 Dose: 15 mcg Aspirin (Aspirin) 325 mg PO QDAY [facility] Last Admin: 08/19/17 09:33 Dose: 325 mg Atorvastatin Calcium (Lipitor) 40 mg PO QHS [facility] Last Admin: 08/19/17 21:43 Dose: 40 mg Budesonide (Pulmicort) 0.5 mg IH Q12HRT [facility] Last Admin: 08/20/17 08:58 Dose: 0.5 mg Clonazepam (Klonopin) 0.5 mg PO BID [facility] Last Admin: 08/19/17 21:42 Dose: 0.5 mg Dextrose (D50w (25gm) Syringe) 50 ml IV PRN PRN PRN Reason: Hypoglycemia Enoxaparin Sodium (Lovenox) 40 mg SUB-Q QDAY [facility] Last Admin: 08/20/17 09:59 Dose: 40 mg Famotidine (Pepcid) 20 mg PO BID [facility] Last Admin: 08/19/17 21:44 Dose: 20 mg Fentanyl (Sublimaze) 50 mcg IV Q2H PRN PRN Reason: Pain Last Admin: 08/18/17 09:13 Dose: 50 mcg Furosemide (Lasix) 40 mg IV ONCE ONE Stop: 08/20/17 10:55 Hydralazine HCl (Apresoline) 10 mg IV Q4H PRN PRN Reason: Hypertension Last Admin: 08/20/17 09:59 Dose: 10 mg Hydrophilic Ointment (Vaseline Lip Therapy) 1 applic TP Q2HR PRN PRN Reason: Dry Lips Piperacillin Sod/Tazobactam Sod (Zosyn/Ns 4.5gm/100ml) 4.5 gm in 100 mls @ 200 mls/hr IV Q8H [facility]; Protocol Stop: 08/20/17 23:59 Last Admin: 08/20/17 09:59 Dose: 200 mls/hr Propofol (Diprivan 10 Mg/Ml) 1,000 mg in 100 mls @ 3.674 mls/hr IV TITR [facility]; Protocol Last Titration: 08/20/17 07:40 Dose: 0 mcg/kg/min, 0 mls/hr Magnesium Sulfate (Magnesium Sulfate 2gm/50ml) 2 gm in 50 mls @ 25 mls/hr IV ONCE ONE Stop: 08/20/17 11:59 Last Admin: 08/20/17 09:59 Dose: 25 mls/hr Insulin Human Lispro (Humalog) 0 unit SUB-Q Q6HR [facility]; Protocol Last Admin: 08/20/17 06:28 Dose: Not Given Losartan Potassium (Cozaar) 25 mg PO BID [facility] Last Admin: 08/19/17 21:43 Dose: 25 mg Metoprolol Tartrate (Lopressor) 50 mg PO Q6H [facility] Last Admin: 08/20/17 06:27 Dose: 50 mg Nicotine (Habitrol) 21 mg TD QDAY [facility] Last Admin: 08/20/17 10:01 Dose: 21 mg Potassium Chloride (Potassium Chloride) 40 meq FEEDTUBE Q4H [facility] Stop: 08/20/17 14:01 Prasugrel (Effient) 10 mg PO QDAY [facility] Last Admin: 08/19/17 09:33 Dose: 10 mg Simple Syrup (Simple Syrup) 15 ml FEEDTUBE PRN PRN PRN Reason: Hypoglycemia Simple Syrup (Simple Syrup) 30 ml FEEDTUBE PRN PRN PRN Reason: Hypoglycemia Sodium Bicarbonate (Sodium Bicarbonate) 325 mg FEEDTUBE PRN PRN PRN Reason: For Clogged Feeding Tube Sodium Chloride (Nacl 0.9% 500 Ml) 1 ml IV DIRECT JOSÉ MIGUEL Objective Vital Signs - 12hr 08/19/17 08/19/17 08/19/17 23:00 23:08 23:19 Temperature 99.8 F H Pulse Rate 81 82 Pulse Rate [ Bilateral] Pulse Rate [ From Monitor] Respiratory 18 18 Rate Respiratory Rate [Bilateral ] Blood Pressure 92/52 92/52 O2 Sat by Pulse 100 100 Oximetry 08/19/17 08/20/17 08/20/17 23:30 00:00 00:30 Temperature Pulse Rate 78 87 82 Pulse Rate [ Bilateral] Pulse Rate [ From Monitor] Respiratory 18 18 18 Rate Respiratory Rate [Bilateral ] Blood Pressure 97/49 101/51 98/47 O2 Sat by Pulse 100 100 100 Oximetry 08/20/17 08/20/17 08/20/17 00:32 01:00 01:30 Temperature Pulse Rate 83 107 H Pulse Rate [ Bilateral] Pulse Rate [ From Monitor] Respiratory 18 18 Rate Respiratory Rate [Bilateral ] Blood Pressure 101/51 97/49 131/74 O2 Sat by Pulse 100 100 Oximetry 08/20/17 08/20/17 08/20/17 02:00 02:30 03:00 Temperature Pulse Rate 97 H 92 H 83 Pulse Rate [ Bilateral] Pulse Rate [ From Monitor] Respiratory 18 18 18 Rate Respiratory Rate [Bilateral ] Blood Pressure 112/59 108/67 111/66 O2 Sat by Pulse 100 100 100 Oximetry 08/20/17 08/20/17 08/20/17 03:30 03:43 03:49 Temperature 98 F Pulse Rate 82 Pulse Rate [ Bilateral] Pulse Rate [ From Monitor] Respiratory 18 Rate Respiratory Rate [Bilateral ] Blood Pressure 106/70 O2 Sat by Pulse 100 99 Oximetry 08/20/17 08/20/17 08/20/17 04:00 04:30 04:40 Temperature Pulse Rate 87 76 88 Pulse Rate [ Bilateral] Pulse Rate [ From Monitor] Respiratory 19 18 Rate Respiratory Rate [Bilateral ] Blood Pressure 121/61 121/61 121/61 O2 Sat by Pulse 100 100 100 Oximetry 08/20/17 08/20/17 08/20/17 05:00 05:30 06:00 Temperature Pulse Rate 92 H 82 68 Pulse Rate [ Bilateral] Pulse Rate [ From Monitor] Respiratory 18 18 18 Rate Respiratory Rate [Bilateral ] Blood Pressure 129/70 118/70 114/69 O2 Sat by Pulse 98 100 100 Oximetry 08/20/17 08/20/17 08/20/17 06:27 06:30 07:00 Temperature Pulse Rate 76 75 75 Pulse Rate [ Bilateral] Pulse Rate [ From Monitor] Respiratory 18 18 Rate Respiratory Rate [Bilateral ] Blood Pressure 114/69 110/61 118/69 O2 Sat by Pulse 100 100 Oximetry 08/20/17 08/20/17 08/20/17 07:30 08:00 08:25 Temperature 98.4 F Pulse Rate 95 H 88 97 H Pulse Rate [ Bilateral] Pulse Rate [ 91 H From Monitor] Respiratory 17 18 Rate Respiratory Rate [Bilateral ] Blood Pressure 143/85 157/91 157/91 O2 Sat by Pulse 100 100 100 Oximetry 08/20/17 08/20/17 08/20/17 08:30 09:00 09:02 Temperature Pulse Rate 111 H 100 H 101 H Pulse Rate [ 104 H Bilateral] Pulse Rate [ From Monitor] Respiratory 24 27 H Rate Respiratory 25 H Rate [Bilateral ] Blood Pressure 178/122 174/94 174/94 O2 Sat by Pulse 100 100 100 Oximetry 08/20/17 08/20/17 08/20/17 09:30 09:38 09:59 Temperature Pulse Rate 120 H 114 H Pulse Rate [ 116 H Bilateral] Pulse Rate [ From Monitor] Respiratory 26 H Rate Respiratory 25 H Rate [Bilateral ] Blood Pressure 174/94 187/100 O2 Sat by Pulse 98 Oximetry 08/20/17 08/20/17 10:00 10:30 Temperature Pulse Rate 118 H 124 H Pulse Rate [ Bilateral] Pulse Rate [ From Monitor] Respiratory 31 H 31 H Rate Respiratory Rate [Bilateral ] Blood Pressure 173/84 O2 Sat by Pulse 100 100 Oximetry Constitutional: alert, other (critically ill on vent) Eyes: non-icteric ENT: other (orally intubated and sedated, critically ill on vent) Neck: supple Effort: normal Ascultation: Bilateral: other (coarse BS bilaterally) Percussion: Bilateral: not dull Cardiovascular: other (appears to be sinus tachy, no mrg) Gastrointestinal: normoactive bowel sounds, soft, non-tender, non-distended Integumentary: normal Extremities: no cyanosis, no edema, pink and warm Neurologic: normal mental status, non-focal exam, pupils equal and round, CN II- XII normal Psychiatric: mood appropriate, affect normal CBC and BMP: 08/20/17 04:06 08/20/17 04:06 ABG, PT/INR, D-dimer: ABG POC ABG pH 7.454 (7.35-7.45) H 08/20/17 04:46 POC ABG pCO2 29.9 (35-45) L 08/20/17 04:46 POC ABG pO2 133 (80-105) H 08/20/17 04:46 POC ABG HCO3 21.0 08/20/17 04:46 POC ABG Total CO2 22 08/20/17 04:46 POC ABG O2 Sat 99 08/20/17 04:46 Abnormal lab findings: Abnormal Labs 08/16/17 08/16/17 08/16/17 06:00 06:00 06:00 WBC 12.7 H RBC 5.28 H Hct 43.2 H MCH 26 L MCHC [place] % (Auto) Seg Neutrophils % Lymphocytes % (Manual) 48.0 H Seg Neutrophils # Lymphocytes # (Manual) 6.1 H POC ABG pH POC ABG pCO2 POC ABG pO2 Sodium Potassium Chloride 96.4 L Carbon Dioxide 17 L BUN 25 H Creatinine 1.5 H Glucose 312 H POC Glucose Hemoglobin A1c Lactic Acid 4.00 H* Calcium 8.3 L Phosphorus 8.80 H AST 61 H Alkaline Phosphatase 157 H NT-Pro-B Natriuret Pep 621.2 H Total Protein Albumin 3.8 L Triglycerides Urine Creatinine 08/16/17 08/16/17 08/16/17 07:24 11:57 12:07 WBC RBC Hct MCH MCHC [place] % (Auto) Seg Neutrophils % Lymphocytes % (Manual) Seg Neutrophils # Lymphocytes # (Manual) POC ABG pH 7.204 L POC ABG pCO2 62.2 H POC ABG pO2 234 H Sodium Potassium Chloride Carbon Dioxide BUN Creatinine Glucose POC Glucose 138 H Hemoglobin A1c Lactic Acid 2.80 H* Calcium Phosphorus AST Alkaline Phosphatase NT-Pro-B Natriuret Pep Total Protein Albumin Triglycerides Urine Creatinine 08/16/17 08/16/17 08/16/17 13:27 17:43 18:05 WBC RBC Hct MCH MCHC [place] % (Auto) Seg Neutrophils % Lymphocytes % (Manual) Seg Neutrophils # Lymphocytes # (Manual) POC ABG pH POC ABG pCO2 POC ABG pO2 Sodium Potassium Chloride Carbon Dioxide BUN Creatinine 1.3 H Glucose POC Glucose 138 H Hemoglobin A1c Lactic Acid 2.20 H* Calcium Phosphorus AST Alkaline Phosphatase NT-Pro-B Natriuret Pep Total Protein Albumin Triglycerides Urine Creatinine 08/17/17 08/17/17 08/17/17 00:06 04:20 04:20 WBC RBC Hct MCH 27 L MCHC 35 H [place] % (Auto) Seg Neutrophils % Lymphocytes % (Manual) Seg Neutrophils # Lymphocytes # (Manual) POC ABG pH POC ABG pCO2 POC ABG pO2 Sodium Potassium 3.1 L D Chloride 107.9 H Carbon Dioxide 16 L BUN 23 H Creatinine 1.5 H Glucose 143 H POC Glucose 143 H Hemoglobin A1c Lactic Acid Calcium 7.8 L Phosphorus AST Alkaline Phosphatase NT-Pro-B Natriuret Pep Total Protein Albumin Triglycerides Urine Creatinine 08/17/17 08/17/17 08/17/17 04:20 04:57 05:48 WBC RBC Hct MCH MCHC [place] % (Auto) Seg Neutrophils % Lymphocytes % (Manual) Seg Neutrophils # Lymphocytes # (Manual) POC ABG pH 7.555 H POC ABG pCO2 19.3 L POC ABG pO2 140 H Sodium Potassium Chloride Carbon Dioxide BUN Creatinine Glucose POC Glucose 129 H Hemoglobin A1c 6.2 H Lactic Acid Calcium Phosphorus AST Alkaline Phosphatase NT-Pro-B Natriuret Pep Total Protein Albumin Triglycerides Urine Creatinine 08/17/17 08/17/17 08/17/17 11:03 11:03 11:55 WBC RBC Hct MCH MCHC [place] % (Auto) Seg Neutrophils % Lymphocytes % (Manual) Seg Neutrophils # Lymphocytes # (Manual) POC ABG pH POC ABG pCO2 POC ABG pO2 Sodium Potassium Chloride Carbon Dioxide BUN Creatinine Glucose POC Glucose 138 H Hemoglobin A1c Lactic Acid Calcium Phosphorus AST Alkaline Phosphatase NT-Pro-B Natriuret Pep Total Protein Albumin Triglycerides Urine Creatinine 220.2 H 218.6 H 08/17/17 08/17/17 08/18/17 18:17 23:30 00:02 WBC RBC Hct MCH MCHC [place] % (Auto) Seg Neutrophils % Lymphocytes % (Manual) Seg Neutrophils # Lymphocytes # (Manual) POC ABG pH POC ABG pCO2 33.2 L POC ABG pO2 307 H Sodium Potassium Chloride Carbon Dioxide BUN Creatinine Glucose POC Glucose 173 H 126 H Hemoglobin A1c Lactic Acid Calcium Phosphorus AST Alkaline Phosphatase NT-Pro-B Natriuret Pep Total Protein Albumin Triglycerides Urine Creatinine 08/18/17 08/18/17 08/18/17 04:20 05:04 09:52 WBC RBC Hct MCH 26 L MCHC [place] % (Auto) Seg Neutrophils % 74.9 H Lymphocytes % (Manual) Seg Neutrophils # 7.9 H Lymphocytes # (Manual) POC ABG pH POC ABG pCO2 28.7 L POC ABG pO2 130 H Sodium Potassium Chloride Carbon Dioxide BUN Creatinine Glucose POC Glucose 118 H Hemoglobin A1c Lactic Acid Calcium Phosphorus AST Alkaline Phosphatase NT-Pro-B Natriuret Pep Total Protein Albumin Triglycerides Urine Creatinine 08/18/17 08/18/17 08/19/17 09:52 11:50 05:08 WBC RBC Hct MCH MCHC [place] % (Auto) Seg Neutrophils % Lymphocytes % (Manual) Seg Neutrophils # Lymphocytes # (Manual) POC ABG pH 7.478 H POC ABG pCO2 26.1 L POC ABG pO2 Sodium 146 H Potassium 3.2 L Chloride 111.2 H Carbon Dioxide 18 L BUN Creatinine Glucose 123 H POC Glucose 106 H Hemoglobin A1c Lactic Acid Calcium 8.0 L Phosphorus AST Alkaline Phosphatase NT-Pro-B Natriuret Pep Total Protein Albumin Triglycerides Urine Creatinine 08/19/17 08/19/17 08/20/17 05:26 09:03 04:06 WBC RBC Hct MCH 27 L MCHC [place] % (Auto) 8.4 H Seg Neutrophils % Lymphocytes % (Manual) Seg Neutrophils # Lymphocytes # (Manual) POC ABG pH POC ABG pCO2 POC ABG pO2 Sodium Potassium Chloride Carbon Dioxide BUN Creatinine Glucose POC Glucose 109 H Hemoglobin A1c Lactic Acid Calcium Phosphorus AST Alkaline Phosphatase NT-Pro-B Natriuret Pep Total Protein Albumin Triglycerides 167 H Urine Creatinine 08/20/17 08/20/17 08/20/17 04:06 04:46 05:34 WBC RBC Hct MCH MCHC [place] % (Auto) Seg Neutrophils % Lymphocytes % (Manual) Seg Neutrophils # Lymphocytes # (Manual) POC ABG pH 7.454 H POC ABG pCO2 29.9 L POC ABG pO2 133 H Sodium Potassium 3.2 L Chloride 108.3 H Carbon Dioxide 18 L BUN 18 H Creatinine Glucose POC Glucose 112 H Hemoglobin A1c Lactic Acid Calcium 8.1 L Phosphorus AST Alkaline Phosphatase NT-Pro-B Natriuret Pep Total Protein 6.2 L Albumin 3.0 L Triglycerides Urine Creatinine Chest x-ray: report reviewed, image reviewed
--- NOTE | 2017-08-20 11:45 | XRay Report ---
AP ABDOMEN: HISTORY: Dobbhoff tube placement. The Dobbhoff tube is essentially unchanged since 08/18/17 exam. The Dobbhoff tube is coiled upon itself in the body of the stomach with its tip near the GE junction. The bowel gas pattern remains normal. Clear lung bases. IMPRESSION: Dobbhoff tube insertion as described.
[2017-08-20] MEDS ORDERED: LASIX IV ONE (12:00)
[2017-08-20] MEDS: EFFIENT PO SCH (12:08)
[2017-08-20] MEDS: PEPCID PO SCH ×2 (12:08→21:47)
[2017-08-20] MEDS: ASPIRIN PO SCH (12:08)
[2017-08-20] MEDS: POTASSIUM CHLORIDE FEEDTUBE SCH ×2 (12:09→16:37)
[2017-08-20] MEDS: COZAAR PO SCH ×2 (12:09→21:47)
[2017-08-20] MEDS: SUBLIMAZE IV PRN (13:15)
--- NOTE | 2017-08-20 18:02 | Vascular Lab Report ---
RIGHT UPPER EXTREMITY VENOUS DUPLEX: REASON FOR EXAM: Pain and swelling of the right upper extremity COMMENTS ON THE RIGHT: Acute superficial venous thrombosis is seen in the cephalic vein extending from the elbow to the wrist. The remaining veins visualized are freely compressible without evidence of internal echogenicity. Spontaneous and phasic flow is present proximally. COMMENTS ON THE LEFT: A limited study of the jugular and subclavian veins shows no evidence of thrombus. IMPRESSION: Acute superficial venous thrombosis involving the cephalic vein between the elbow and wrist and the right upper extremity. No evidence of acute deep venous thrombosis in the right upper extremity.
[2017-08-21] MEDS: HumaLOG SUB-Q SCH ×2 (01:00→05:53)
[2017-08-21] MEDS: LOPRESSOR PO SCH ×3 (01:09→13:17)
[2017-08-21 05:02] LABS: Basophils % (Auto) 0.3 % (0.0-1.8); Eosinophils # (Auto) 0.1 K/mm3 (0.0-0.4); Eosinophils % (Auto) 1.4 % (0.0-4.3); Hematocrit 34.3 % (30.3-42.9); Hemoglobin 11.3 gm/dl (10.1-14.3); Lymphocytes # (Auto) 1.9 K/mm3 (1.2-5.4); Lymphocytes % (Auto) 20.1 % (13.4-35.0); Mean Corpuscular HGB Conc 33 % (30-34); Mean Corpuscular Hemoglobin 26 pg (28-32); Mean Corpuscular Volume 79 fl (79-97); Monocytes # (Auto) 0.9 K/mm3 (0.0-0.8); Monocytes % (Auto) 9.4 % (0.0-7.3); Platelet Count 239 K/mm3 (140-440); Red Blood Count 4.34 M/mm3 (3.65-5.03); Red Cell Distribution Width 14.1 % (13.2-15.2)
[2017-08-21 05:30] LABS: Calcium 8.7 mg/dL (8.4-10.2)
--- NOTE | 2017-08-21 06:48 | XRay Report ---
FINAL REPORT EXAM: XR CHEST 1V AP HISTORY: Follow-up respiratory failure. TECHNIQUE: A single frontal portable radiograph of the chest was obtained. Comparison is made with prior study 08/19/2017. FINDINGS: The cardiac silhouette and mediastinum are within normal limits. An endotracheal tube is seen with its tip approximately 6 cm above the ike. A Dobhoff tube traverses the thorax into the stomach, with its tip directed cephalad overlying the region of the mid stomach. There is slightly decreased pulmonary vascular congestion compared to prior exam. There are mild faint patchy opacities at both lung bases, left greater right, representing atelectasis and/or infiltrate, stable. There is no pleural effusion or pneumothorax. No significant osseous abnormalities are identified. IMPRESSION: Slight interval decreased pulmonary vascular congestion compared to prior exam. Mild bibasilar patchy opacities, representing atelectasis and/or infiltrate, stable.
[2017-08-21] MEDS: PULMICORT IH SCH ×2 (09:14→19:37)
[2017-08-21] MEDS: BROVANA NEBU IH SCH (09:15)
[2017-08-21] MEDS: LOVENOX SUB-Q SCH (09:18)
[2017-08-21] MEDS: COZAAR PO SCH ×2 (09:18→21:16)
[2017-08-21] MEDS: EFFIENT PO SCH (09:19)
[2017-08-21] MEDS: ASPIRIN PO SCH (09:19)
[2017-08-21] MEDS: HABITROL TD SCH (09:19)
[2017-08-21] MEDS: PEPCID PO SCH ×2 (09:20→21:15)
--- NOTE | 2017-08-21 11:26 | Progress Note ---
Assessment and Plan Acute respiratory failure, unknown etiology intubated on mechanical ventilation Acute RUE SVT Hypertension Hx of CAD s/p PCI 08/2016 on aspirin and effient Obesity Tobacco abuse Normal LVEF 50-55% on echocardiogram this admission. Subjective Date of service: 08/21/17 Principal diagnosis: Acute respiratory failure Interval history: Remains alert, intubated on mechanical ventilation. Objective Vital Signs Temp Pulse Pulse Pulse Resp Resp BP 08/21/17 10:30 82 25 H 137/71 08/21/17 10:00 105 H 25 H 131/86 08/21/17 09:30 104 H 23 124/80 08/21/17 09:19 101 H 26 H 124/80 08/21/17 09:18 116 H 124/80 08/21/17 09:00 80 22 124/80 08/21/17 08:30 87 22 131/87 08/21/17 08:00 98.8 F 74 92 H 22 124/68 08/21/17 07:30 84 22 132/65 08/21/17 07:00 85 22 132/75 08/21/17 06:50 101 H 125/66 08/21/17 06:30 86 22 125/66 08/21/17 06:00 80 22 124/64 08/21/17 05:30 83 22 138/75 08/21/17 05:01 86 22 101/65 08/21/17 04:31 71 22 101/65 08/21/17 04:01 97 H 18 101/65 08/21/17 04:00 78 98 H 08/21/17 03:46 97.8 F 08/21/17 03:30 86 22 111/62 08/21/17 03:00 81 22 110/62 08/21/17 02:31 100 H 15 103/64 08/21/17 02:00 89 22 102/61 08/21/17 01:30 90 22 116/64 08/21/17 01:09 97 H 117/75 08/21/17 01:01 95 H 22 117/75 08/21/17 00:30 86 22 116/67 08/21/17 00:00 90 98 H 22 113/73 08/20/17 23:46 97.1 F L 08/20/17 23:30 83 22 101/55 08/20/17 23:00 90 22 102/60 04/18/18 22:30 91 H 22 108/64 04/18/18 22:20 87 22 135/75 1818 22:00 96 H 24 135/75 18/18 21:47 92 H 144/80 04/18/18 21:30 87 22 144/80 1818 21:00 104 H 14 132/91 1818 20:30 87 22 122/72 041818 20:28 90 22 1818 20:00 97.8 F 90 98 H 28 H 128/77 1818 19:30 100 H 25 H 129/75 18/18 19:22 97 H 158/74 1818 19:00 92 H 26 H 158/74 1818 18:53 91 H 1818 18:30 106 H 31 H 146/80 1818 18:00 101 H 32 H 141/82 18 17:30 96 H 31 H 124/72 1818 17:00 94 H 31 H 134/71 1818 16:37 98 H 135/78 1818 16:30 106 H 31 H 135/78 18/18 16:00 98.7 F 98 H 102 H 24 130/72 1818 15:30 101 H 22 130/72 1818 15:00 100 H 30 H 130/72 18 14:30 102 H 31 H 136/75 18 14:00 110 H 27 H 136/73 1818 13:58 107 H 18 13:30 109 H 33 H 147/77 18 13:10 112 H 181/94 1818 13:00 128 H 37 H 215/129 18 12:30 189/128 18 12:10 120 H 171/87 18 12:09 120 H 171/87 18 12:00 98.5 F 121 H 32 H 171/87 18 11:30 120 H 28 H 172/88 Pulse Ox 08/21/17 10:30 99 18 10:00 100 08/21/17 09:30 99 18 09:19 99 18 09:18 08/21/17 09:00 100 18 08:30 100 08/21/17 08:00 99 08/21/17 07:30 100 08/21/17 07:00 99 18 06:50 08/21/17 06:30 99 08/21/17 06:00 99 08/21/17 05:30 99 08/21/17 05:01 100 08/21/17 04:31 100 08/21/17 04:01 100 08/21/17 04:00 100 08/21/17 03:46 08/21/17 03:30 100 08/21/17 03:00 100 08/21/17 02:31 99 08/21/17 02:00 99 08/21/17 01:30 100 08/21/17 01:09 08/21/17 01:01 100 08/21/17 00:30 100 08/21/17 00:00 100 18 23:46 08/20/17 23:30 99 18 23:00 99 18 22:30 100 18 22:20 100 18 22:00 100 18 21:47 18 21:30 100 18 21:00 100 18 20:30 100 18 20:28 18 20:00 100 18 19:30 100 18 19:22 18 19:00 99 18 18:53 100 18 18:30 100 1818 18:00 99 18 17:30 100 1818 17:00 100 1818 16:37 99 1818 16:30 100 1818 16:00 99 1818 15:30 100 1818 15:00 100 1818 14:30 100 1818 14:00 99 1818 13:58 100 1818 13:30 98 1818 13:10 100 1818 13:00 100 04/18/18 12:30 99 04/18/18 12:10 08/20/17 12:09 08/20/17 12:00 99 08/20/17 11:30 100 - Physical Examination General: Other (intubated on the vent) Cardiac: Positive: Reg Rate and Rhythm - Labs and Meds CBC 08/21/17 Range/Units 04:13 WBC 9.7 (4.5-11.0) K/mm3 RBC 4.34 (3.65-5.03) M/mm3 Hgb 11.3 (10.1-14.3) gm/dl Hct 34.3 (30.3-42.9) % Plt Count 239 (140-440) K/mm3 Lymph # 1.9 (1.2-5.4) K/mm3 [place] # 0.9 H (0.0-0.8) K/mm3 Eos # 0.1 (0.0-0.4) K/mm3 Baso # 0.0 (0.0-0.1) K/mm3 Comprehensive Metabolic Panel 08/21/17 Range/Units 04:13 Sodium 147 H (137-145) mmol/L Potassium 4.2 D (3.6-5.0) mmol/L Chloride 110.0 H (98-107) mmol/L Carbon Dioxide 19 L (22-30) mmol/L BUN 23 H (7-17) mg/dL Creatinine 1.3 H (0.7-1.2) mg/dL Glucose 111 H (65-100) mg/dL Calcium 8.7 (8.4-10.2) mg/dL
[2017-08-21] MEDS: APRESOLINE IV PRN (16:16)
--- NOTE | 2017-08-21 17:43 | Progress Note ---
Assessment and Plan Imp: 1. Acute respiratory failure, hypoxia and hypercapnea; ? etiology 2. CAD s/p PCI 08/19 3. Malignant HTN on presentation with SBP > 200 4. Morbid obesity 5. CKD 6. Lactic acidosis Rec: 1. Needs better BP control; Losartan 25mg BID + Lopressor per cardiology; Lasix 20mg daily and Hydralazine 25mg TID added 2. Not convinced re: aspiration and sepsis; see #3 above; finished Zosyn 3. Appreciate cardiology consult 4. KATARZYNA screening prior to d/c 5. GI and DVT PPx; advance diet 6. Decrease Klonopin 7. Monitor in ICU overnight 8. Complex patient No family present Subjective Date of service: 08/21/17 Principal diagnosis: Acute respiratory failure Interval history: No events overnight. Extubated as she tolerated PSV 10/5 x 4 hours with good ABG. Doing well post-extubation except BP elevated. No complaints. On 40% AFM. Active Medications Albuterol (Proventil) 2.5 mg IH Q6HRT PRN PRN Reason: Wheezing Lipase/Protease/Amylase (Pancreaze Dr 10,500 Unit) 1 each FEEDTUBE PRN PRN PRN Reason: For Clogged Feeding Tube Aspirin (Aspirin) 325 mg PO QDAY [facility] Last Admin: 08/21/17 09:19 Dose: 325 mg Atorvastatin Calcium (Lipitor) 40 mg PO QHS [facility] Last Admin: 08/20/17 21:47 Dose: 40 mg Budesonide (Pulmicort) 0.5 mg IH Q12HRT [facility] Last Admin: 08/21/17 09:14 Dose: 0.5 mg Clonazepam (Klonopin) 0.25 mg PO BID [facility] Dextrose (D50w (25gm) Syringe) 50 ml IV PRN PRN PRN Reason: Hypoglycemia Enoxaparin Sodium (Lovenox) 40 mg SUB-Q QDAY [facility] Last Admin: 08/21/17 09:18 Dose: 40 mg Famotidine (Pepcid) 20 mg PO BID [facility] Last Admin: 08/21/17 09:20 Dose: 20 mg Fentanyl (Sublimaze) 50 mcg IV Q2H PRN PRN Reason: Pain Last Admin: 08/20/17 13:15 Dose: 50 mcg Furosemide (Lasix) 20 mg PO QDAY [facility] Hydralazine HCl (Apresoline) 10 mg IV Q4H PRN PRN Reason: Hypertension Last Admin: 08/21/17 16:16 Dose: 10 mg Hydralazine HCl (Apresoline) 25 mg PO Q8HR [facility] Hydrophilic Ointment (Vaseline Lip Therapy) 1 applic TP Q2HR PRN PRN Reason: Dry Lips Insulin Human Lispro (Humalog) 0 unit SUB-Q Q6HR [facility]; Protocol Last Admin: 08/21/17 05:53 Dose: Not Given Losartan Potassium (Cozaar) 25 mg PO BID [facility] Last Admin: 08/21/17 09:18 Dose: 25 mg Metoprolol Tartrate (Lopressor) 50 mg PO Q6H [facility] Last Admin: 08/21/17 13:17 Dose: 50 mg Nicotine (Habitrol) 21 mg TD QDAY [facility] Last Admin: 08/21/17 09:19 Dose: 21 mg Prasugrel (Effient) 10 mg PO QDAY [facility] Last Admin: 08/21/17 09:19 Dose: 10 mg Simple Syrup (Simple Syrup) 15 ml FEEDTUBE PRN PRN PRN Reason: Hypoglycemia Simple Syrup (Simple Syrup) 30 ml FEEDTUBE PRN PRN PRN Reason: Hypoglycemia Sodium Bicarbonate (Sodium Bicarbonate) 325 mg FEEDTUBE PRN PRN PRN Reason: For Clogged Feeding Tube Sodium Chloride (Nacl 0.9% 500 Ml) 1 ml IV DIRECT [facility] Objective Vital Signs - 12hr 08/21/17 08/21/17 08/21/17 06:00 06:30 06:50 Temperature Pulse Rate 80 86 101 H Pulse Rate [ From Monitor] Respiratory 22 22 Rate Blood Pressure 124/64 125/66 125/66 O2 Sat by Pulse 99 99 Oximetry 08/21/17 08/21/17 08/21/17 07:00 07:30 08:00 Temperature 98.8 F Pulse Rate 85 84 74 Pulse Rate [ 92 H From Monitor] Respiratory 22 22 22 Rate Blood Pressure 132/75 132/65 124/68 O2 Sat by Pulse 99 100 99 Oximetry 08/21/17 08/21/17 08/21/17 08:30 09:00 09:18 Temperature Pulse Rate 87 80 116 H Pulse Rate [ From Monitor] Respiratory 22 22 Rate Blood Pressure 131/87 124/80 124/80 O2 Sat by Pulse 100 100 Oximetry 08/21/17 08/21/17 08/21/17 09:19 09:30 10:00 Temperature Pulse Rate 101 H 104 H 105 H Pulse Rate [ From Monitor] Respiratory 26 H 23 25 H Rate Blood Pressure 124/80 124/80 131/86 O2 Sat by Pulse 99 99 100 Oximetry 08/21/17 08/21/17 08/21/17 10:30 11:00 11:30 Temperature Pulse Rate 82 93 H 100 H Pulse Rate [ From Monitor] Respiratory 25 H 26 H 25 H Rate Blood Pressure 137/71 132/78 138/81 O2 Sat by Pulse 99 100 99 Oximetry 08/21/17 08/21/17 08/21/17 12:00 12:30 13:00 Temperature Pulse Rate 99 H 104 H 101 H Pulse Rate [ 99 H From Monitor] Respiratory 23 25 H 20 Rate Blood Pressure 134/89 132/90 139/88 O2 Sat by Pulse 100 100 100 Oximetry 08/21/17 08/21/17 08/21/17 13:17 13:28 14:50 Temperature Pulse Rate 96 H 97 H Pulse Rate [ From Monitor] Respiratory 21 Rate Blood Pressure 139/88 139/88 O2 Sat by Pulse 96 Oximetry 08/21/17 16:16 Temperature Pulse Rate 94 H Pulse Rate [ From Monitor] Respiratory Rate Blood Pressure 143/108 O2 Sat by Pulse Oximetry Constitutional: no acute distress, alert Eyes: non-icteric ENT: oropharynx moist Neck: supple Effort: normal Ascultation: Bilateral: clear Cardiovascular: other (appears to be sinus tachy, no mrg) Gastrointestinal: normoactive bowel sounds, soft, non-tender, non-distended Integumentary: normal Extremities: no cyanosis, no edema, pink and warm Neurologic: normal mental status, non-focal exam, pupils equal and round, CN II- XII normal Psychiatric: mood appropriate, affect normal CBC and BMP: 08/21/17 04:13 08/21/17 04:13 ABG, PT/INR, D-dimer: ABG POC ABG pH 7.399 (7.35-7.45) 08/21/17 13:48 POC ABG pCO2 33.9 (35-45) L 08/21/17 13:48 POC ABG pO2 116 (80-105) H 08/21/17 13:48 POC ABG HCO3 21.0 08/21/17 13:48 POC ABG Total CO2 22 08/21/17 13:48 POC ABG O2 Sat 99 08/21/17 13:48 Abnormal lab findings: Abnormal Labs 08/16/17 08/16/17 08/16/17 06:00 06:00 06:00 WBC 12.7 H RBC 5.28 H Hct 43.2 H MCH 26 L MCHC [place] % (Auto) [place] # Seg Neutrophils % Lymphocytes % (Manual) 48.0 H Seg Neutrophils # Lymphocytes # (Manual) 6.1 H POC ABG pH POC ABG pCO2 POC ABG pO2 Sodium Potassium Chloride 96.4 L Carbon Dioxide 17 L BUN 25 H Creatinine 1.5 H Glucose 312 H POC Glucose Hemoglobin A1c Lactic Acid 4.00 H* Calcium 8.3 L Phosphorus 8.80 H AST 61 H Alkaline Phosphatase 157 H NT-Pro-B Natriuret Pep 621.2 H Total Protein Albumin 3.8 L Triglycerides Urine Creatinine 08/16/17 08/16/17 08/16/17 07:24 11:57 12:07 WBC RBC Hct MCH MCHC [place] % (Auto) [place] # Seg Neutrophils % Lymphocytes % (Manual) Seg Neutrophils # Lymphocytes # (Manual) POC ABG pH 7.204 L POC ABG pCO2 62.2 H POC ABG pO2 234 H Sodium Potassium Chloride Carbon Dioxide BUN Creatinine Glucose POC Glucose 138 H Hemoglobin A1c Lactic Acid 2.80 H* Calcium Phosphorus AST Alkaline Phosphatase NT-Pro-B Natriuret Pep Total Protein Albumin Triglycerides Urine Creatinine 08/16/17 08/16/17 08/16/17 13:27 17:43 18:05 WBC RBC Hct MCH MCHC [place] % (Auto) [place] # Seg Neutrophils % Lymphocytes % (Manual) Seg Neutrophils # Lymphocytes # (Manual) POC ABG pH POC ABG pCO2 POC ABG pO2 Sodium Potassium Chloride Carbon Dioxide BUN Creatinine 1.3 H Glucose POC Glucose 138 H Hemoglobin A1c Lactic Acid 2.20 H* Calcium Phosphorus AST Alkaline Phosphatase NT-Pro-B Natriuret Pep Total Protein Albumin Triglycerides Urine Creatinine 08/17/17 08/17/17 08/17/17 00:06 04:20 04:20 WBC RBC Hct MCH 27 L MCHC 35 H [place] % (Auto) [place] # Seg Neutrophils % Lymphocytes % (Manual) Seg Neutrophils # Lymphocytes # (Manual) POC ABG pH POC ABG pCO2 POC ABG pO2 Sodium Potassium 3.1 L D Chloride 107.9 H Carbon Dioxide 16 L BUN 23 H Creatinine 1.5 H Glucose 143 H POC Glucose 143 H Hemoglobin A1c Lactic Acid Calcium 7.8 L Phosphorus AST Alkaline Phosphatase NT-Pro-B Natriuret Pep Total Protein Albumin Triglycerides Urine Creatinine 08/17/17 08/17/17 08/17/17 04:20 04:57 05:48 WBC RBC Hct MCH MCHC [place] % (Auto) [place] # Seg Neutrophils % Lymphocytes % (Manual) Seg Neutrophils # Lymphocytes # (Manual) POC ABG pH 7.555 H POC ABG pCO2 19.3 L POC ABG pO2 140 H Sodium Potassium Chloride Carbon Dioxide BUN Creatinine Glucose POC Glucose 129 H Hemoglobin A1c 6.2 H Lactic Acid Calcium Phosphorus AST Alkaline Phosphatase NT-Pro-B Natriuret Pep Total Protein Albumin Triglycerides Urine Creatinine 08/17/17 08/17/17 08/17/17 11:03 11:03 11:55 WBC RBC Hct MCH MCHC [place] % (Auto) [place] # Seg Neutrophils % Lymphocytes % (Manual) Seg Neutrophils # Lymphocytes # (Manual) POC ABG pH POC ABG pCO2 POC ABG pO2 Sodium Potassium Chloride Carbon Dioxide BUN Creatinine Glucose POC Glucose 138 H Hemoglobin A1c Lactic Acid Calcium Phosphorus AST Alkaline Phosphatase NT-Pro-B Natriuret Pep Total Protein Albumin Triglycerides Urine Creatinine 220.2 H 218.6 H 08/17/17 08/17/17 08/18/17 18:17 23:30 00:02 WBC RBC Hct MCH MCHC [place] % (Auto) [place] # Seg Neutrophils % Lymphocytes % (Manual) Seg Neutrophils # Lymphocytes # (Manual) POC ABG pH POC ABG pCO2 33.2 L POC ABG pO2 307 H Sodium Potassium Chloride Carbon Dioxide BUN Creatinine Glucose POC Glucose 173 H 126 H Hemoglobin A1c Lactic Acid Calcium Phosphorus AST Alkaline Phosphatase NT-Pro-B Natriuret Pep Total Protein Albumin Triglycerides Urine Creatinine 08/18/17 08/18/17 08/18/17 04:20 05:04 09:52 WBC RBC Hct MCH 26 L MCHC [place] % (Auto) [place] # Seg Neutrophils % 74.9 H Lymphocytes % (Manual) Seg Neutrophils # 7.9 H Lymphocytes # (Manual) POC ABG pH POC ABG pCO2 28.7 L POC ABG pO2 130 H Sodium Potassium Chloride Carbon Dioxide BUN Creatinine Glucose POC Glucose 118 H Hemoglobin A1c Lactic Acid Calcium Phosphorus AST Alkaline Phosphatase NT-Pro-B Natriuret Pep Total Protein Albumin Triglycerides Urine Creatinine 08/18/17 08/18/17 08/19/17 09:52 11:50 05:08 WBC RBC Hct MCH MCHC [place] % (Auto) [place] # Seg Neutrophils % Lymphocytes % (Manual) Seg Neutrophils # Lymphocytes # (Manual) POC ABG pH 7.478 H POC ABG pCO2 26.1 L POC ABG pO2 Sodium 146 H Potassium 3.2 L Chloride 111.2 H Carbon Dioxide 18 L BUN Creatinine Glucose 123 H POC Glucose 106 H Hemoglobin A1c Lactic Acid Calcium 8.0 L Phosphorus AST Alkaline Phosphatase NT-Pro-B Natriuret Pep Total Protein Albumin Triglycerides Urine Creatinine 08/19/17 08/19/17 08/20/17 05:26 09:03 04:06 WBC RBC Hct MCH 27 L MCHC [place] % (Auto) 8.4 H [place] # Seg Neutrophils % Lymphocytes % (Manual) Seg Neutrophils # Lymphocytes # (Manual) POC ABG pH POC ABG pCO2 POC ABG pO2 Sodium Potassium Chloride Carbon Dioxide BUN Creatinine Glucose POC Glucose 109 H Hemoglobin A1c Lactic Acid Calcium Phosphorus AST Alkaline Phosphatase NT-Pro-B Natriuret Pep Total Protein Albumin Triglycerides 167 H Urine Creatinine 08/20/17 08/20/17 08/20/17 04:06 04:46 05:34 WBC RBC Hct MCH MCHC [place] % (Auto) [place] # Seg Neutrophils % Lymphocytes % (Manual) Seg Neutrophils # Lymphocytes # (Manual) POC ABG pH 7.454 H POC ABG pCO2 29.9 L POC ABG pO2 133 H Sodium Potassium 3.2 L Chloride 108.3 H Carbon Dioxide 18 L BUN 18 H Creatinine Glucose POC Glucose 112 H Hemoglobin A1c Lactic Acid Calcium 8.1 L Phosphorus AST Alkaline Phosphatase NT-Pro-B Natriuret Pep Total Protein 6.2 L Albumin 3.0 L Triglycerides Urine Creatinine 08/20/17 08/21/17 08/21/17 17:05 04:13 04:13 WBC RBC Hct MCH 26 L MCHC [place] % (Auto) 9.4 H [place] # 0.9 H Seg Neutrophils % Lymphocytes % (Manual) Seg Neutrophils # Lymphocytes # (Manual) POC ABG pH POC ABG pCO2 POC ABG pO2 Sodium 147 H Potassium Chloride 110.0 H Carbon Dioxide 19 L BUN 23 H Creatinine 1.3 H Glucose 111 H POC Glucose 106 H Hemoglobin A1c Lactic Acid Calcium Phosphorus AST Alkaline Phosphatase NT-Pro-B Natriuret Pep Total Protein Albumin Triglycerides Urine Creatinine 08/21/17 08/21/17 08/21/17 05:11 11:49 13:48 WBC RBC Hct MCH MCHC [place] % (Auto) [place] # Seg Neutrophils % Lymphocytes % (Manual) Seg Neutrophils # Lymphocytes # (Manual) POC ABG pH POC ABG pCO2 31.3 L 33.9 L POC ABG pO2 128 H 116 H Sodium Potassium Chloride Carbon Dioxide BUN Creatinine Glucose POC Glucose 121 H Hemoglobin A1c Lactic Acid Calcium Phosphorus AST Alkaline Phosphatase NT-Pro-B Natriuret Pep Total Protein Albumin Triglycerides Urine Creatinine Chest x-ray: report reviewed, image reviewed
--- NOTE | 2017-08-21 19:30 | Progress Note ---
Assessment and Plan Assessment and plan: Patient is a 42 year old female with history of Morbid obesity, DM, CAD on plavix who presented to the ER via EMS after they recieved a call about from patient about persistent nausea and vomiting with shortness of breath. Patient was placed on CPAP at her residence but was with no improvement and impending respiratory failure resulting in intubation at the ER. At the time of my evaluation, patient was already intubated. Per the ED physician the patient had significant oral secretions and hence high suspicion of Aspiration Acute Respiratory failure requiring mechanical ventilation Sepsis/pneumonia ruled out. Prevailing thought is respiratory failure secondary to hypercapnic with hypoxic respiratory failure Acute Kidney injury with vasomotor nephropathy-now resolved CAD Hyperglycemia suspect DM Hypokalemia Morbid obesity Metabolic Acidosis Tobacco Dependence Plan Continue ICU care Strict I/O Cardiology input noted if he started via NG tube. Dietitian consultation Discontinue Capps a.m. as renal function is improved Continue weaning trials per pulmonary/electrotyper apprentice Agree with control of blood pressure monitor closely. Replace electrolytes The high probability of a clinically significant, sudden or life threatening deterioration of the [pulmonary, GI, renal] system(s) required my full and direct attention, intervention and personal management. The aggregate critical care time was [45] minutes. This time is in addition to time spent performing reported procedures but includes the following: [X] Data Review and interpretation [X] Patient assessment and monitoring of vital signs [X] Documentation [X] Medication orders and management History Interval history: Patient seen and examined, remains intubated but awakens to verbal stimuli and follows commands, Some agitation, otherwise stable Hospitalist Physical - Physical exam Narrative exam: General appearance: Present: severe distress, other (on mechanical ventilation) - EENT Eyes: Present: PERRL - Neck Neck: Present: supple, normal ROM - Respiratory Respiratory effort: labored Respiratory: bilateral: diminished - Cardiovascular Heart Sounds: Present: S1 & S2 - Extremities Extremities: no ischemia, pulses intact, pulses symmetrical, No edema, normal temperature, normal color Peripheral Pulses: within normal limits - Abdominal General gastrointestinal: Present: soft, non-tender, normal bowel sounds - Integumentary Integumentary: Present: clear, warm, dry - Musculoskeletal Musculoskeletal: other, moves all extremities. - Psychiatric Psychiatric: agitated - Neurologic Neurologic: other moves all extrimities. no focal deficit - Constitutional Vitals: Temp Pulse Resp BP Pulse Ox 99.3 F 102 H 22 127/76 100 08/21/17 16:00 08/21/17 18:30 08/21/17 18:30 08/21/17 18:30 08/21/17 18:30 General appearance: Present: obese, other (intubated on mechanical ventilation) Results - Labs CBC & Chem 7: 08/22/17 03:58 08/22/17 03:58 Labs: Laboratory Last Values WBC 9.7 K/mm3 (4.5-11.0) 08/21/17 04:13 RBC 4.34 M/mm3 (3.65-5.03) 08/21/17 04:13 Hgb 11.3 gm/dl (10.1-14.3) 08/21/17 04:13 Hct 34.3 % (30.3-42.9) 08/21/17 04:13 MCV 79 fl (79-97) 08/21/17 04:13 MCH 26 pg (28-32) L 08/21/17 04:13 MCHC 33 % (30-34) 08/21/17 04:13 RDW 14.1 % (13.2-15.2) 08/21/17 04:13 Plt Count 239 K/mm3 (140-440) 08/21/17 04:13 Lymph % (Auto) 20.1 % (13.4-35.0) 08/21/17 04:13 [place] % (Auto) 9.4 % (0.0-7.3) H 08/21/17 04:13 Eos % (Auto) 1.4 % (0.0-4.3) 08/21/17 04:13 Baso % (Auto) 0.3 % (0.0-1.8) 08/21/17 04:13 Lymph # 1.9 K/mm3 (1.2-5.4) 08/21/17 04:13 [place] # 0.9 K/mm3 (0.0-0.8) H 08/21/17 04:13 Eos # 0.1 K/mm3 (0.0-0.4) 08/21/17 04:13 Baso # 0.0 K/mm3 (0.0-0.1) 08/21/17 04:13 Add Manual Diff Complete 08/16/17 06:00 Total Counted 100 04/14/18 06:00 Seg Neutrophils % 68.8 % (40.0-70.0) 08/21/17 04:13 Seg Neuts % (Manual) 41.0 % (40.0-70.0) 08/16/17 06:00 Band Neutrophils % 6.0 % 08/16/17 06:00 Lymphocytes % (Manual) 48.0 % (13.4-35.0) H 08/16/17 06:00 Reactive Lymphs % (Man) 0 % 08/16/17 06:00 Monocytes % (Manual) 3.0 % (0.0-7.3) 08/16/17 06:00 Eosinophils % (Manual) 1.0 % (0.0-4.3) 08/16/17 06:00 Basophils % (Manual) 1.0 % (0.0-1.8) 08/16/17 06:00 Metamyelocytes % 0 % 08/16/17 06:00 Myelocytes % 0 % 08/16/17 06:00 Promyelocytes % 0 % 08/16/17 06:00 Blast Cells % 0 % 08/16/17 06:00 Nucleated RBC % Not Reportable 08/16/17 06:00 Seg Neutrophils # 6.7 K/mm3 (1.8-7.7) 08/21/17 04:13 Seg Neutrophils # Man 5.2 K/mm3 (1.8-7.7) 08/16/17 06:00 Band Neutrophils # 0.8 K/mm3 08/16/17 06:00 Lymphocytes # (Manual) 6.1 K/mm3 (1.2-5.4) H 08/16/17 06:00 Abs React Lymphs (Man) 0.0 K/mm3 08/16/17 06:00 Monocytes # (Manual) 0.4 K/mm3 (0.0-0.8) 08/16/17 06:00 Eosinophils # (Manual) 0.1 K/mm3 (0.0-0.4) 08/16/17 06:00 Basophils # (Manual) 0.1 K/mm3 (0.0-0.1) 08/16/17 06:00 Metamyelocytes # 0.0 K/mm3 08/16/17 06:00 Myelocytes # 0.0 K/mm3 08/16/17 06:00 Promyelocytes # 0.0 K/mm3 08/16/17 06:00 Blast Cells # 0.0 K/mm3 08/16/17 06:00 WBC Morphology Not Reportable 08/16/17 06:00 Hypersegmented Neuts Not Reportable 08/16/17 06:00 Hyposegmented Neuts Not Reportable 08/16/17 06:00 Hypogranular Neuts Not Reportable 08/16/17 06:00 Smudge Cells Not Reportable 08/16/17 06:00 Toxic Granulation Not Reportable 08/16/17 06:00 Toxic Vacuolation Not Reportable 08/16/17 06:00 Dohle Bodies Not Reportable 08/16/17 06:00 Pelger-Huet Anomaly Not Reportable 08/16/17 06:00 Barbara Rods Not Reportable 08/16/17 06:00 Platelet Estimate Appears normal 08/16/17 06:00 Clumped Platelets Not Reportable 08/16/17 06:00 Plt Clumps, EDTA Not Reportable 08/16/17 06:00 Large Platelets Not Reportable 08/16/17 06:00 Giant Platelets Not Reportable 08/16/17 06:00 Platelet Satelliting Not Reportable 08/16/17 06:00 Plt Morphology Comment Not Reportable 08/16/17 06:00 RBC Morphology Normal 08/16/17 06:00 Dimorphic RBCs Not Reportable 08/16/17 06:00 Polychromasia Not Reportable 08/16/17 06:00 Hypochromasia Not Reportable 08/16/17 06:00 Poikilocytosis Not Reportable 08/16/17 06:00 Anisocytosis Not Reportable 08/16/17 06:00 Microcytosis Not Reportable 08/16/17 06:00 Macrocytosis Not Reportable 08/16/17 06:00 Spherocytes Not Reportable 08/16/17 06:00 Pappenheimer Bodies Not Reportable 08/16/17 06:00 Sickle Cells Not Reportable 08/16/17 06:00 Target Cells Not Reportable 08/16/17 06:00 Tear Drop Cells Not Reportable 08/16/17 06:00 Ovalocytes Not Reportable 08/16/17 06:00 Helmet Cells Not Reportable 08/16/17 06:00 [place] Bodies Not Reportable 08/16/17 06:00 [place] Rings Not Reportable 08/16/17 06:00 [place] Cells Not Reportable 08/16/17 06:00 Bite Cells Not Reportable 08/16/17 06:00 Crenated Cell Not Reportable 08/16/17 06:00 Elliptocytes Not Reportable 08/16/17 06:00 Acanthocytes (Spur) Not Reportable 08/16/17 06:00 Rouleaux Not Reportable 08/16/17 06:00 Hemoglobin C Crystals Not Reportable 08/16/17 06:00 Schistocytes Not Reportable 08/16/17 06:00 Malaria parasites Not Reportable 08/16/17 06:00 Malcolm Bodies Not Reportable 08/16/17 06:00 Hem Pathologist Commnt No 08/16/17 06:00 POC ABG pH 7.399 (7.35-7.45) 08/21/17 13:48 POC ABG pCO2 33.9 (35-45) L 08/21/17 13:48 POC ABG pO2 116 (80-105) H 08/21/17 13:48 POC ABG HCO3 21.0 08/21/17 13:48 POC ABG Total CO2 22 08/21/17 13:48 POC ABG O2 Sat 99 08/21/17 13:48 POC ABG Base Excess -4 08/21/17 13:48 FiO2 35 % 08/21/17 13:48 Sodium 147 mmol/L (137-145) H 08/21/17 04:13 Potassium 4.2 mmol/L (3.6-5.0) D 08/21/17 04:13 Chloride 110.0 mmol/L (98-107) H 08/21/17 04:13 Carbon Dioxide 19 mmol/L (22-30) L 08/21/17 04:13 Anion Gap 22 mmol/L 08/21/17 04:13 BUN 23 mg/dL (7-17) H 08/21/17 04:13 Creatinine 1.3 mg/dL (0.7-1.2) H 08/21/17 04:13 Estimated GFR 45 ml/min 08/21/17 04:13 BUN/Creatinine Ratio 18 % 08/21/17 04:13 Glucose 111 mg/dL (65-100) H 08/21/17 04:13 POC Glucose 149 (70-105) H 08/21/17 18:28 Hemoglobin A1c 6.2 % (4-6) H 08/17/17 04:20 Lactic Acid 1.10 mmol/L (0.7-2.0) 08/17/17 04:20 Calcium 8.7 mg/dL (8.4-10.2) 08/21/17 04:13 Phosphorus 3.80 mg/dL (2.5-4.5) 08/21/17 04:13 Magnesium 2.20 mg/dL (1.7-2.3) 08/21/17 04:13 Total Bilirubin 1.20 mg/dL (0.1-1.2) 08/20/17 04:06 AST 12 units/L (5-40) 08/20/17 04:06 ALT 14 units/L (7-56) 08/20/17 04:06 Alkaline Phosphatase 82 units/L (35-129) 08/20/17 04:06 NT-Pro-B Natriuret Pep 621.2 pg/mL (0-450) H 08/16/17 06:00 Total Protein 6.2 g/dL (6.3-8.2) L 08/20/17 04:06 Albumin 3.0 g/dL (3.9-5) L 08/20/17 04:06 Albumin/Globulin Ratio 0.9 % 08/20/17 04:06 Triglycerides 167 mg/dL (2-149) H 08/19/17 09:03 Urine Color Straw (Yellow) 08/16/17 06:06 Urine Turbidity Clear (Clear) 08/16/17 06:06 Urine pH 6.0 (5.0-7.0) 08/16/17 06:06 Ur Specific [place] 1.007 (1.003-1.030) 08/16/17 06:06 Urine Protein >500 mg/dL (Negative) 08/16/17 06:06 Urine Glucose (UA) >=500 mg/dL (Negative) 08/16/17 06:06 Urine Ketones Neg mg/dL (Negative) 08/16/17 06:06 Urine Blood Sm (Negative) 08/16/17 06:06 Urine Nitrite Neg (Negative) 08/16/17 06:06 Urine Bilirubin Neg (Negative) 08/16/17 06:06 Urine Urobilinogen < 2.0 mg/dL (<2.0) 08/16/17 06:06 Ur Leukocyte Esterase Neg (Negative) 08/16/17 06:06 Urine WBC (Auto) 2.0 /HPF (0.0-6.0) 08/16/17 06:06 Urine RBC (Auto) 2.0 /HPF (0.0-6.0) 08/16/17 06:06 U Epithel Cells (Auto) < 1.0 /HPF (0-13.0) 08/16/17 06:06 Urine Creatinine 220.2 mg/dL (0.1-20.0) H 08/17/17 11:03 Urine Sodium 10 mmol/L 08/17/17 11:03 Fraction Sodium Excret 0.0 08/17/17 11:03 Urine Urea Nitrogen 1213 08/17/17 11:03 Urine Opiates Screen Presumptive negative 08/16/17 06:06 Urine Methadone Screen Presumptive negative 08/16/17 06:06 Ur Barbiturates Screen Presumptive negative 08/16/17 06:06 Ur Phencyclidine Scrn Presumptive negative 08/16/17 06:06 Ur Amphetamines Screen Presumptive negative 08/16/17 06:06 U Benzodiazepines Scrn Presumptive negative 08/16/17 06:06 Urine Cocaine Screen Presumptive negative 08/16/17 06:06 U Marijuana (THC) Screen Presumptive negative 08/16/17 06:06 Drugs of Abuse Note Disclamer 08/16/17 06:06 Blood Type B POSITIVE 08/16/17 06:15 Antibody Screen Negative 08/16/17 06:15
[2017-08-21] MEDS: APRESOLINE PO SCH (21:16)
[2017-08-22] MEDS: LOPRESSOR PO SCH ×4 (00:26→19:06)
[2017-08-22] MEDS: HumaLOG SUB-Q SCH ×5 (00:27→23:10)
--- NOTE | 2017-08-22 03:22 | XRay Report ---
FINAL REPORT EXAM: XR CHEST 1V AP HISTORY: Follow-up respiratory failure. TECHNIQUE: A single frontal portable radiograph of the chest was obtained. Comparison is made with prior study 08/20/2017. FINDINGS: There are slightly low lung volumes on the current exam, with accentuation of the cardiac silhouette and pulmonary vasculature. There has been interval removal of the endotracheal and enteric tubes. Mild bibasilar patchy opacities are again demonstrated, representing minimal atelectasis and/or infiltrate, stable. There is no pneumothorax. No significant osseous abnormalities are identified. IMPRESSION: Limited due to low lung volumes. Mild residual bibasilar opacities, representing mild atelectasis and/or infiltrate, stable.
[2017-08-22] MEDS: APRESOLINE PO SCH ×3 (05:25→21:54)
[2017-08-22 05:26] LABS: Basophils % (Auto) 0.3 % (0.0-1.8); Eosinophils # (Auto) 0.2 K/mm3 (0.0-0.4); Eosinophils % (Auto) 1.6 % (0.0-4.3); Hematocrit 36.8 % (30.3-42.9); Hemoglobin 11.9 gm/dl (10.1-14.3); Lymphocytes # (Auto) 2.1 K/mm3 (1.2-5.4); Lymphocytes % (Auto) 20.7 % (13.4-35.0); Mean Corpuscular HGB Conc 32 % (30-34); Mean Corpuscular Volume 80 fl (79-97); Monocytes # (Auto) 0.7 K/mm3 (0.0-0.8); Monocytes % (Auto) 6.8 % (0.0-7.3); Platelet Count 248 K/mm3 (140-440); Red Blood Count 4.62 M/mm3 (3.65-5.03)
[2017-08-22 05:43] LABS: Mean Corpuscular Hemoglobin 26 pg (28-32)
[2017-08-22 05:44] LABS: BUN/Creatinine Ratio 20; Blood Urea Nitrogen 20 mg/dL (7-17); Calcium 8.7 mg/dL (8.4-10.2); Hemolysis Index 8
[2017-08-22] MEDS: COZAAR PO SCH ×2 (09:51→21:55)
[2017-08-22] MEDS: ASPIRIN PO SCH (09:51)
[2017-08-22] MEDS: HABITROL TD SCH (09:51)
[2017-08-22] MEDS: EFFIENT PO SCH (09:51)
[2017-08-22] MEDS: LASIX PO SCH (09:52)
[2017-08-22] MEDS: LOVENOX SUB-Q SCH (09:52)
[2017-08-22] MEDS: PEPCID PO SCH ×2 (09:52→21:54)
--- NOTE | 2017-08-22 11:54 | Progress Note ---
Assessment and Plan Acute respiratory failure, unknown etiology s/p extubation Acute RUE SVT Hypertension Hx of CAD s/p PCI 08/2016 on aspirin and effient Obesity Tobacco abuse Normal LVEF 50-55% on echocardiogram this admission. Conservative cardiac management. Subjective Date of service: 08/22/17 Principal diagnosis: Acute respiratory failure Interval history: Patient was extubated on 08/21. She has no complains post extubation. Objective Vital Signs Temp Pulse Pulse Pulse Resp Resp Resp 08/22/17 10:00 85 21 15 08/22/17 09:51 90 08/22/17 09:00 84 23 08/22/17 08:00 98.6 F 82 84 27 H 08/22/17 07:00 89 26 H 08/22/17 06:00 86 22 08/22/17 05:31 85 26 H 08/22/17 05:25 87 08/22/17 05:00 90 32 H 08/22/17 04:31 95 H 30 H 08/22/17 04:00 98.9 F 93 H 92 H 27 H 08/22/17 03:31 91 H 19 08/22/17 03:00 80 25 H 08/22/17 02:31 81 26 H 08/22/17 02:00 94 H 24 08/22/17 01:31 96 H 26 H 08/22/17 01:00 99 H 21 08/22/17 00:31 96 H 19 08/22/17 00:26 94 H 08/22/17 00:01 93 H 27 H 08/22/17 00:00 92 H 08/21/17 23:57 98.2 F 08/21/17 23:47 104 H 14 08/21/17 23:31 99 H 36 H 08/21/17 23:15 103 H 24 08/21/17 23:01 116 H 24 08/21/17 22:31 99 H 33 H 08/21/17 22:00 105 H 26 H 08/21/17 21:31 94 H 15 08/21/17 21:16 100 H 08/21/17 21:01 102 H 21 08/21/17 20:31 100 H 14 08/21/17 20:00 98.8 F 105 H 98 H 21 08/21/17 19:52 103 H 22 08/21/17 19:39 08/21/17 19:37 101 H 22 08/21/17 19:30 103 H 33 H 08/21/17 19:00 97 H 28 H 08/21/17 18:30 102 H 22 08/21/17 18:00 103 H 22 08/21/17 17:30 102 H 19 08/21/17 17:01 109 H 13 08/21/17 16:31 137 H 08/21/17 16:16 94 H 08/21/17 16:00 99.3 F 104 H 100 H 14 08/21/17 15:30 90 14 08/21/17 15:00 97 H 15 08/21/17 14:50 08/21/17 14:30 101 H 17 08/21/17 14:00 102 H 26 H 08/21/17 13:31 98 H 17 08/21/17 13:28 97 H 21 08/21/17 13:17 96 H 08/21/17 13:00 101 H 20 08/21/17 12:30 104 H 25 H 08/21/17 12:00 98.4 F 99 H 99 H 23 BP Pulse Ox 08/22/17 10:00 123/76 99 08/22/17 09:51 144/72 08/22/17 09:00 144/72 100 08/22/17 08:00 140/80 99 08/22/17 07:00 137/93 100 08/22/17 06:00 148/74 100 08/22/17 05:31 154/74 98 08/22/17 05:25 149/83 08/22/17 05:00 149/83 96 08/22/17 04:31 154/74 99 08/22/17 04:00 154/74 98 08/22/17 03:31 152/77 89 08/22/17 03:00 152/77 95 08/22/17 02:31 136/83 94 08/22/17 02:00 136/83 100 08/22/17 01:31 158/87 98 08/22/17 01:00 143/71 96 08/22/17 00:31 143/71 99 08/22/17 00:26 143/71 08/22/17 00:01 143/71 100 08/22/17 00:00 99 08/21/17 23:57 08/21/17 23:47 100 04/19/18 23:31 122/68 96 08/21/17 23:15 122/68 97 08/21/17 23:01 141/76 97 18 22:31 141/76 100 18 22:00 141/76 98 18 21:31 138/70 100 18 21:16 199/126 18 21:01 199/126 100 18 20:31 146/82 100 18 20:00 146/82 100 18 19:52 08/21/17 19:39 100 08/21/17 19:37 08/21/17 19:30 146/76 99 08/21/17 19:00 137/80 100 08/21/17 18:30 127/76 100 08/21/17 18:00 118/69 100 08/21/17 17:30 124/75 100 08/21/17 17:01 130/81 100 08/21/17 16:31 154/87 99 08/21/17 16:16 143/108 08/21/17 16:00 143/108 99 08/21/17 15:30 139/80 99 08/21/17 15:00 153/97 98 08/21/17 14:50 96 08/21/17 14:30 159/96 100 08/21/17 14:00 152/95 100 08/21/17 13:31 139/88 100 08/21/17 13:28 139/88 08/21/17 13:17 139/88 08/21/17 13:00 139/88 100 08/21/17 12:30 132/90 100 08/21/17 12:00 134/89 100 - Physical Examination General: No Apparent Distress HEENT: Positive: PERRL Cardiac: Positive: Reg Rate and Rhythm Abdomen: Positive: Soft - Labs and Meds CBC 08/22/17 Range/Units 03:58 WBC 10.1 (4.5-11.0) K/mm3 RBC 4.62 (3.65-5.03) M/mm3 Hgb 11.9 (10.1-14.3) gm/dl Hct 36.8 (30.3-42.9) % Plt Count 248 (140-440) K/mm3 Lymph # 2.1 (1.2-5.4) K/mm3 Webb # 0.7 (0.0-0.8) K/mm3 Eos # 0.2 (0.0-0.4) K/mm3 Baso # 0.0 (0.0-0.1) K/mm3 Comprehensive Metabolic Panel 08/22/17 Range/Units 03:58 Sodium 145 (137-145) mmol/L Potassium 3.9 (3.6-5.0) mmol/L Chloride 108.4 H (98-107) mmol/L Carbon Dioxide 19 L (22-30) mmol/L BUN 20 H (7-17) mg/dL Creatinine 1.0 (0.7-1.2) mg/dL Glucose 104 H (65-100) mg/dL Calcium 8.7 (8.4-10.2) mg/dL
--- NOTE | 2017-08-22 13:36 | Progress Note ---
Assessment and Plan Imp: 1. Acute respiratory failure, hypoxia and hypercapnea; suspect pulm edema due to malignant HTN which may be exacerbated by untreated KATARZYNA 2. CAD s/p PCI 08/19 3. Malignant HTN on presentation with SBP > 200 4. Morbid obesity 5. CKD 6. Lactic acidosis Rec: 1. Cont. Losartan 25mg BID + Lopressor same dose, Lasix 20mg daily, and Hydralazine 25mg TID; d/w her re: need for compliance with BP meds and low sodium diet 2. Needs PSG outpatient GEOFFREY, she understands; do not drive/operate machinery while sleepy 3. GI and DVT PPx; advance diet as tolerated 4. Stop Klonopin 5. Ambulate 6. Can go to floor; possible d/c soon Plan of care reviewed with patient, she understands/agrees Subjective Date of service: 08/22/17 Principal diagnosis: Acute respiratory failure Interval history: No events overnight. On NC. No SOB, chest pain. Vitals all better. Active Medications Albuterol (Proventil) 2.5 mg IH Q6HRT PRN PRN Reason: Wheezing Aspirin (Aspirin) 325 mg PO QDAY [facility] Last Admin: 08/22/17 09:51 Dose: 325 mg Atorvastatin Calcium (Lipitor) 40 mg PO QHS [facility] Last Admin: 08/21/17 21:15 Dose: 40 mg Budesonide (Pulmicort) 0.5 mg IH Q12HRT [facility] Last Admin: 08/21/17 19:37 Dose: 0.5 mg Dextrose (D50w (25gm) Syringe) 50 ml IV PRN PRN PRN Reason: Hypoglycemia Enoxaparin Sodium (Lovenox) 40 mg SUB-Q QDAY [facility] Last Admin: 08/22/17 09:52 Dose: 40 mg Famotidine (Pepcid) 20 mg PO BID [facility] Last Admin: 08/22/17 09:52 Dose: 20 mg Furosemide (Lasix) 20 mg PO QDAY [facility] Last Admin: 08/22/17 09:52 Dose: 20 mg Hydralazine HCl (Apresoline) 10 mg IV Q4H PRN PRN Reason: Hypertension Last Admin: 08/21/17 16:16 Dose: 10 mg Hydralazine HCl (Apresoline) 25 mg PO Q8HR [facility] Last Admin: 08/22/17 05:25 Dose: 25 mg Hydrophilic Ointment (Vaseline Lip Therapy) 1 applic TP Q2HR PRN PRN Reason: Dry Lips Insulin Human Lispro (Humalog) 0 unit SUB-Q ACHS [facility]; Protocol Losartan Potassium (Cozaar) 25 mg PO BID [facility] Last Admin: 08/22/17 09:51 Dose: 25 mg Metoprolol Tartrate (Lopressor) 50 mg PO Q6H [facility] Last Admin: 08/22/17 05:25 Dose: 50 mg Nicotine (Habitrol) 21 mg TD QDAY [facility] Last Admin: 08/22/17 09:51 Dose: 21 mg Prasugrel (Effient) 10 mg PO QDAY [facility] Last Admin: 08/22/17 09:51 Dose: 10 mg Objective Vital Signs - 12hr 08/22/17 08/22/17 08/22/17 01:31 02:00 02:31 Temperature Pulse Rate 96 H 94 H 81 Pulse Rate [ From Monitor] Respiratory 26 H 24 26 H Rate Respiratory Rate [Chest] Blood Pressure 158/87 136/83 136/83 O2 Sat by Pulse 98 100 94 Oximetry 08/22/17 08/22/17 08/22/17 03:00 03:31 04:00 Temperature 98.9 F Pulse Rate 80 91 H 93 H Pulse Rate [ 92 H From Monitor] Respiratory 25 H 19 27 H Rate Respiratory Rate [Chest] Blood Pressure 152/77 152/77 154/74 O2 Sat by Pulse 95 89 98 Oximetry 08/22/17 08/22/17 08/22/17 04:31 05:00 05:25 Temperature Pulse Rate 95 H 90 87 Pulse Rate [ From Monitor] Respiratory 30 H 32 H Rate Respiratory Rate [Chest] Blood Pressure 154/74 149/83 149/83 O2 Sat by Pulse 99 96 Oximetry 08/22/17 08/22/17 08/22/17 05:31 06:00 07:00 Temperature Pulse Rate 85 86 89 Pulse Rate [ From Monitor] Respiratory 26 H 22 26 H Rate Respiratory Rate [Chest] Blood Pressure 154/74 148/74 137/93 O2 Sat by Pulse 98 100 100 Oximetry 08/22/17 08/22/17 08/22/17 08:00 09:00 09:51 Temperature 98.6 F Pulse Rate 82 84 90 Pulse Rate [ 84 From Monitor] Respiratory 27 H 23 Rate Respiratory Rate [Chest] Blood Pressure 140/80 144/72 144/72 O2 Sat by Pulse 99 100 Oximetry 08/22/17 10:00 Temperature Pulse Rate 85 Pulse Rate [ From Monitor] Respiratory 21 Rate Respiratory 15 Rate [Chest] Blood Pressure 123/76 O2 Sat by Pulse 99 Oximetry Constitutional: no acute distress, alert Eyes: non-icteric ENT: oropharynx moist Neck: supple Effort: normal Ascultation: Bilateral: clear Cardiovascular: regular rate and rhythm (no mrg) Gastrointestinal: normoactive bowel sounds, soft, non-tender, non-distended Integumentary: normal Extremities: no cyanosis, no edema, pink and warm Neurologic: normal mental status, non-focal exam, pupils equal and round, CN II- XII normal Psychiatric: mood appropriate, affect normal CBC and BMP: 08/22/17 03:58 08/22/17 03:58 ABG, PT/INR, D-dimer: ABG POC ABG pH 7.399 (7.35-7.45) 08/21/17 13:48 POC ABG pCO2 33.9 (35-45) L 08/21/17 13:48 POC ABG pO2 116 (80-105) H 08/21/17 13:48 POC ABG HCO3 21.0 08/21/17 13:48 POC ABG Total CO2 22 08/21/17 13:48 POC ABG O2 Sat 99 08/21/17 13:48 Abnormal lab findings: Abnormal Labs 08/16/17 08/16/17 08/16/17 06:00 06:00 06:00 WBC 12.7 H RBC 5.28 H Hct 43.2 H MCH 26 L MCHC [place] % (Auto) [place] # Seg Neutrophils % Lymphocytes % (Manual) 48.0 H Seg Neutrophils # Lymphocytes # (Manual) 6.1 H POC ABG pH POC ABG pCO2 POC ABG pO2 Sodium Potassium Chloride 96.4 L Carbon Dioxide 17 L BUN 25 H Creatinine 1.5 H Glucose 312 H POC Glucose Hemoglobin A1c Lactic Acid 4.00 H* Calcium 8.3 L Phosphorus 8.80 H AST 61 H Alkaline Phosphatase 157 H NT-Pro-B Natriuret Pep 621.2 H Total Protein Albumin 3.8 L Triglycerides Urine Creatinine 08/16/17 08/16/17 08/16/17 07:24 11:57 12:07 WBC RBC Hct MCH MCHC [place] % (Auto) [place] # Seg Neutrophils % Lymphocytes % (Manual) Seg Neutrophils # Lymphocytes # (Manual) POC ABG pH 7.204 L POC ABG pCO2 62.2 H POC ABG pO2 234 H Sodium Potassium Chloride Carbon Dioxide BUN Creatinine Glucose POC Glucose 138 H Hemoglobin A1c Lactic Acid 2.80 H* Calcium Phosphorus AST Alkaline Phosphatase NT-Pro-B Natriuret Pep Total Protein Albumin Triglycerides Urine Creatinine 08/16/17 08/16/17 08/16/17 13:27 17:43 18:05 WBC RBC Hct MCH MCHC [place] % (Auto) [place] # Seg Neutrophils % Lymphocytes % (Manual) Seg Neutrophils # Lymphocytes # (Manual) POC ABG pH POC ABG pCO2 POC ABG pO2 Sodium Potassium Chloride Carbon Dioxide BUN Creatinine 1.3 H Glucose POC Glucose 138 H Hemoglobin A1c Lactic Acid 2.20 H* Calcium Phosphorus AST Alkaline Phosphatase NT-Pro-B Natriuret Pep Total Protein Albumin Triglycerides Urine Creatinine 08/17/17 08/17/17 08/17/17 00:06 04:20 04:20 WBC RBC Hct MCH 27 L MCHC 35 H [place] % (Auto) [place] # Seg Neutrophils % Lymphocytes % (Manual) Seg Neutrophils # Lymphocytes # (Manual) POC ABG pH POC ABG pCO2 POC ABG pO2 Sodium Potassium 3.1 L D Chloride 107.9 H Carbon Dioxide 16 L BUN 23 H Creatinine 1.5 H Glucose 143 H POC Glucose 143 H Hemoglobin A1c Lactic Acid Calcium 7.8 L Phosphorus AST Alkaline Phosphatase NT-Pro-B Natriuret Pep Total Protein Albumin Triglycerides Urine Creatinine 08/17/17 08/17/17 08/17/17 04:20 04:57 05:48 WBC RBC Hct MCH MCHC [place] % (Auto) [place] # Seg Neutrophils % Lymphocytes % (Manual) Seg Neutrophils # Lymphocytes # (Manual) POC ABG pH 7.555 H POC ABG pCO2 19.3 L POC ABG pO2 140 H Sodium Potassium Chloride Carbon Dioxide BUN Creatinine Glucose POC Glucose 129 H Hemoglobin A1c 6.2 H Lactic Acid Calcium Phosphorus AST Alkaline Phosphatase NT-Pro-B Natriuret Pep Total Protein Albumin Triglycerides Urine Creatinine 08/17/17 08/17/17 08/17/17 11:03 11:03 11:55 WBC RBC Hct MCH MCHC [place] % (Auto) [place] # Seg Neutrophils % Lymphocytes % (Manual) Seg Neutrophils # Lymphocytes # (Manual) POC ABG pH POC ABG pCO2 POC ABG pO2 Sodium Potassium Chloride Carbon Dioxide BUN Creatinine Glucose POC Glucose 138 H Hemoglobin A1c Lactic Acid Calcium Phosphorus AST Alkaline Phosphatase NT-Pro-B Natriuret Pep Total Protein Albumin Triglycerides Urine Creatinine 220.2 H 218.6 H 08/17/17 08/17/17 08/18/17 18:17 23:30 00:02 WBC RBC Hct MCH MCHC [place] % (Auto) [place] # Seg Neutrophils % Lymphocytes % (Manual) Seg Neutrophils # Lymphocytes # (Manual) POC ABG pH POC ABG pCO2 33.2 L POC ABG pO2 307 H Sodium Potassium Chloride Carbon Dioxide BUN Creatinine Glucose POC Glucose 173 H 126 H Hemoglobin A1c Lactic Acid Calcium Phosphorus AST Alkaline Phosphatase NT-Pro-B Natriuret Pep Total Protein Albumin Triglycerides Urine Creatinine 08/18/17 08/18/17 08/18/17 04:20 05:04 09:52 WBC RBC Hct MCH 26 L MCHC [place] % (Auto) [place] # Seg Neutrophils % 74.9 H Lymphocytes % (Manual) Seg Neutrophils # 7.9 H Lymphocytes # (Manual) POC ABG pH POC ABG pCO2 28.7 L POC ABG pO2 130 H Sodium Potassium Chloride Carbon Dioxide BUN Creatinine Glucose POC Glucose 118 H Hemoglobin A1c Lactic Acid Calcium Phosphorus AST Alkaline Phosphatase NT-Pro-B Natriuret Pep Total Protein Albumin Triglycerides Urine Creatinine 08/18/17 08/18/17 08/19/17 09:52 11:50 05:08 WBC RBC Hct MCH MCHC [place] % (Auto) [place] # Seg Neutrophils % Lymphocytes % (Manual) Seg Neutrophils # Lymphocytes # (Manual) POC ABG pH 7.478 H POC ABG pCO2 26.1 L POC ABG pO2 Sodium 146 H Potassium 3.2 L Chloride 111.2 H Carbon Dioxide 18 L BUN Creatinine Glucose 123 H POC Glucose 106 H Hemoglobin A1c Lactic Acid Calcium 8.0 L Phosphorus AST Alkaline Phosphatase NT-Pro-B Natriuret Pep Total Protein Albumin Triglycerides Urine Creatinine 08/19/17 08/19/17 08/20/17 05:26 09:03 04:06 WBC RBC Hct MCH 27 L MCHC [place] % (Auto) 8.4 H [place] # Seg Neutrophils % Lymphocytes % (Manual) Seg Neutrophils # Lymphocytes # (Manual) POC ABG pH POC ABG pCO2 POC ABG pO2 Sodium Potassium Chloride Carbon Dioxide BUN Creatinine Glucose POC Glucose 109 H Hemoglobin A1c Lactic Acid Calcium Phosphorus AST Alkaline Phosphatase NT-Pro-B Natriuret Pep Total Protein Albumin Triglycerides 167 H Urine Creatinine 08/20/17 08/20/17 08/20/17 04:06 04:46 05:34 WBC RBC Hct MCH MCHC [place] % (Auto) [place] # Seg Neutrophils % Lymphocytes % (Manual) Seg Neutrophils # Lymphocytes # (Manual) POC ABG pH 7.454 H POC ABG pCO2 29.9 L POC ABG pO2 133 H Sodium Potassium 3.2 L Chloride 108.3 H Carbon Dioxide 18 L BUN 18 H Creatinine Glucose POC Glucose 112 H Hemoglobin A1c Lactic Acid Calcium 8.1 L Phosphorus AST Alkaline Phosphatase NT-Pro-B Natriuret Pep Total Protein 6.2 L Albumin 3.0 L Triglycerides Urine Creatinine 08/20/17 08/21/17 08/21/17 17:05 04:13 04:13 WBC RBC Hct MCH 26 L MCHC [place] % (Auto) 9.4 H [place] # 0.9 H Seg Neutrophils % Lymphocytes % (Manual) Seg Neutrophils # Lymphocytes # (Manual) POC ABG pH POC ABG pCO2 POC ABG pO2 Sodium 147 H Potassium Chloride 110.0 H Carbon Dioxide 19 L BUN 23 H Creatinine 1.3 H Glucose 111 H POC Glucose 106 H Hemoglobin A1c Lactic Acid Calcium Phosphorus AST Alkaline Phosphatase NT-Pro-B Natriuret Pep Total Protein Albumin Triglycerides Urine Creatinine 08/21/17 08/21/17 08/21/17 05:11 11:49 13:48 WBC RBC Hct MCH MCHC [place] % (Auto) [place] # Seg Neutrophils % Lymphocytes % (Manual) Seg Neutrophils # Lymphocytes # (Manual) POC ABG pH POC ABG pCO2 31.3 L 33.9 L POC ABG pO2 128 H 116 H Sodium Potassium Chloride Carbon Dioxide BUN Creatinine Glucose POC Glucose 121 H Hemoglobin A1c Lactic Acid Calcium Phosphorus AST Alkaline Phosphatase NT-Pro-B Natriuret Pep Total Protein Albumin Triglycerides Urine Creatinine 08/21/17 08/22/17 08/22/17 18:28 03:58 03:58 WBC RBC Hct MCH 26 L MCHC [place] % (Auto) [place] # Seg Neutrophils % 70.6 H Lymphocytes % (Manual) Seg Neutrophils # Lymphocytes # (Manual) POC ABG pH POC ABG pCO2 POC ABG pO2 Sodium Potassium Chloride 108.4 H Carbon Dioxide 19 L BUN 20 H Creatinine Glucose 104 H POC Glucose 149 H Hemoglobin A1c Lactic Acid Calcium Phosphorus AST Alkaline Phosphatase NT-Pro-B Natriuret Pep Total Protein Albumin Triglycerides Urine Creatinine Chest x-ray: report reviewed, image reviewed
[2017-08-22] MEDS: PULMICORT IH SCH ×2 (17:51→20:49)
--- NOTE | 2017-08-22 23:01 | Progress Note ---
Assessment and Plan Assessment and plan: Patient is a 42 year old female with history of Morbid obesity, DM, CAD on plavix who presented to the ER via EMS after they recieved a call about from patient about persistent nausea and vomiting with shortness of breath. Patient was placed on CPAP at her residence but was with no improvement and impending respiratory failure resulting in intubation at the ER. At the time of my evaluation, patient was already intubated. Per the ED physician the patient had significant oral secretions and hence high suspicion of Aspiration Acute Respiratory failure requiring mechanical ventilation s/p extubation Sepsis/pneumonia ruled out. Acute Kidney injury with vasomotor nephropathy-now resolved CAD Hyperglycemia suspect DM Hypokalemia Morbid obesity Metabolic Acidosis Tobacco Dependence Plan Ok to transfer to [facility] Continue HTN Strict I/O Cardiology input noted if he started via NG tube. Dietitian consultation Continue weaning trials per pulmonary/field research associate Agree with control of blood pressure monitor closely. Replace electrolytes anticipate discharge in 48hrs. History Interval history: Patient seen and examined, extubated yesterday and doing well. no chest pain reported. no nausea or vomiting. Hospitalist Physical - Physical exam Narrative exam: General appearance: Present: NAD, morbidly obese - EENT Eyes: Present: PERRL - Neck Neck: Present: supple, normal ROM - Respiratory Respiratory effort:normal Respiratory: bilateral: diminished - Cardiovascular Heart Sounds: Present: S1 & S2 - Extremities Extremities: no ischemia, pulses intact, pulses symmetrical, No edema, normal temperature, normal color Peripheral Pulses: within normal limits - Abdominal General gastrointestinal: Present: soft, non-tender, normal bowel sounds - Integumentary Integumentary: Present: clear, warm, dry - Musculoskeletal Musculoskeletal: other, moves all extremities. - Psychiatric Psychiatric: normal mood and affect - Neurologic Neurologic: other moves all extrimities. no focal deficit - Constitutional Vitals: Temp Pulse Resp BP Pulse Ox 98.1 F 88 20 108/66 99 08/22/17 21:00 08/22/17 21:55 08/22/17 21:00 08/22/17 21:55 08/22/17 22:11 General appearance: Present: obese, other (intubated on mechanical ventilation) Results - Labs CBC & Chem 7: 08/22/17 03:58 08/22/17 03:58 Labs: Laboratory Last Values WBC 10.1 K/mm3 (4.5-11.0) 08/22/17 03:58 RBC 4.62 M/mm3 (3.65-5.03) 08/22/17 03:58 Hgb 11.9 gm/dl (10.1-14.3) 08/22/17 03:58 Hct 36.8 % (30.3-42.9) 08/22/17 03:58 MCV 80 fl (79-97) 08/22/17 03:58 MCH 26 pg (28-32) L 08/22/17 03:58 MCHC 32 % (30-34) 08/22/17 03:58 RDW 14.0 % (13.2-15.2) 08/22/17 03:58 Plt Count 248 K/mm3 (140-440) 08/22/17 03:58 Lymph % (Auto) 20.7 % (13.4-35.0) 08/22/17 03:58 [place] % (Auto) 6.8 % (0.0-7.3) 08/22/17 03:58 Eos % (Auto) 1.6 % (0.0-4.3) 08/22/17 03:58 Baso % (Auto) 0.3 % (0.0-1.8) 08/22/17 03:58 Lymph # 2.1 K/mm3 (1.2-5.4) 08/22/17 03:58 [place] # 0.7 K/mm3 (0.0-0.8) 08/22/17 03:58 Eos # 0.2 K/mm3 (0.0-0.4) 08/22/17 03:58 Baso # 0.0 K/mm3 (0.0-0.1) 08/22/17 03:58 Add Manual Diff Complete 08/16/17 06:00 Total Counted 100 08/16/17 06:00 Seg Neutrophils % 70.6 % (40.0-70.0) H 08/22/17 03:58 Seg Neuts % (Manual) 41.0 % (40.0-70.0) 08/16/17 06:00 Band Neutrophils % 6.0 % 08/16/17 06:00 Lymphocytes % (Manual) 48.0 % (13.4-35.0) H 08/16/17 06:00 Reactive Lymphs % (Man) 0 % 08/16/17 06:00 Monocytes % (Manual) 3.0 % (0.0-7.3) 08/16/17 06:00 Eosinophils % (Manual) 1.0 % (0.0-4.3) 08/16/17 06:00 Basophils % (Manual) 1.0 % (0.0-1.8) 08/16/17 06:00 Metamyelocytes % 0 % 08/16/17 06:00 Myelocytes % 0 % 08/16/17 06:00 Promyelocytes % 0 % 08/16/17 06:00 Blast Cells % 0 % 08/16/17 06:00 Nucleated RBC % Not Reportable 08/16/17 06:00 Seg Neutrophils # 7.1 K/mm3 (1.8-7.7) 08/22/17 03:58 Seg Neutrophils # Man 5.2 K/mm3 (1.8-7.7) 08/16/17 06:00 Band Neutrophils # 0.8 K/mm3 08/16/17 06:00 Lymphocytes # (Manual) 6.1 K/mm3 (1.2-5.4) H 08/16/17 06:00 Abs React Lymphs (Man) 0.0 K/mm3 08/16/17 06:00 Monocytes # (Manual) 0.4 K/mm3 (0.0-0.8) 08/16/17 06:00 Eosinophils # (Manual) 0.1 K/mm3 (0.0-0.4) 08/16/17 06:00 Basophils # (Manual) 0.1 K/mm3 (0.0-0.1) 08/16/17 06:00 Metamyelocytes # 0.0 K/mm3 08/16/17 06:00 Myelocytes # 0.0 K/mm3 08/16/17 06:00 Promyelocytes # 0.0 K/mm3 08/16/17 06:00 Blast Cells # 0.0 K/mm3 08/16/17 06:00 WBC Morphology Not Reportable 08/16/17 06:00 Hypersegmented Neuts Not Reportable 08/16/17 06:00 Hyposegmented Neuts Not Reportable 08/16/17 06:00 Hypogranular Neuts Not Reportable 08/16/17 06:00 Smudge Cells Not Reportable 08/16/17 06:00 Toxic Granulation Not Reportable 08/16/17 06:00 Toxic Vacuolation Not Reportable 08/16/17 06:00 Dohle Bodies Not Reportable 08/16/17 06:00 Pelger-Huet Anomaly Not Reportable 08/16/17 06:00 Barbara Rods Not Reportable 08/16/17 06:00 Platelet Estimate Appears normal 08/16/17 06:00 Clumped Platelets Not Reportable 08/16/17 06:00 Plt Clumps, EDTA Not Reportable 08/16/17 06:00 Large Platelets Not Reportable 08/16/17 06:00 Giant Platelets Not Reportable 08/16/17 06:00 Platelet Satelliting Not Reportable 08/16/17 06:00 Plt Morphology Comment Not Reportable 08/16/17 06:00 RBC Morphology Normal 08/16/17 06:00 Dimorphic RBCs Not Reportable 08/16/17 06:00 Polychromasia Not Reportable 08/16/17 06:00 Hypochromasia Not Reportable 08/16/17 06:00 Poikilocytosis Not Reportable 08/16/17 06:00 Anisocytosis Not Reportable 08/16/17 06:00 Microcytosis Not Reportable 08/16/17 06:00 Macrocytosis Not Reportable 08/16/17 06:00 Spherocytes Not Reportable 08/16/17 06:00 Pappenheimer Bodies Not Reportable 08/16/17 06:00 Sickle Cells Not Reportable 08/16/17 06:00 Target Cells Not Reportable 08/16/17 06:00 Tear Drop Cells Not Reportable 08/16/17 06:00 Ovalocytes Not Reportable 08/16/17 06:00 Helmet Cells Not Reportable 08/16/17 06:00 [place] Bodies Not Reportable 08/16/17 06:00 Rogers Rings Not Reportable 08/16/17 06:00 Cristina Cells Not Reportable 08/16/17 06:00 Bite Cells Not Reportable 08/16/17 06:00 Crenated Cell Not Reportable 08/16/17 06:00 Elliptocytes Not Reportable 08/16/17 06:00 Acanthocytes (Spur) Not Reportable 08/16/17 06:00 Rouleaux Not Reportable 08/16/17 06:00 Hemoglobin C Crystals Not Reportable 08/16/17 06:00 Schistocytes Not Reportable 08/16/17 06:00 Malaria parasites Not Reportable 08/16/17 06:00 Malcolm Bodies Not Reportable 08/16/17 06:00 Hem Pathologist Commnt No 08/16/17 06:00 POC ABG pH 7.399 (7.35-7.45) 08/21/17 13:48 POC ABG pCO2 33.9 (35-45) L 08/21/17 13:48 POC ABG pO2 116 (80-105) H 08/21/17 13:48 POC ABG HCO3 21.0 08/21/17 13:48 POC ABG Total CO2 22 08/21/17 13:48 POC ABG O2 Sat 99 08/21/17 13:48 POC ABG Base Excess -4 08/21/17 13:48 FiO2 35 % 08/21/17 13:48 Sodium 145 mmol/L (137-145) 08/22/17 03:58 Potassium 3.9 mmol/L (3.6-5.0) 08/22/17 03:58 Chloride 108.4 mmol/L (98-107) H 08/22/17 03:58 Carbon Dioxide 19 mmol/L (22-30) L 08/22/17 03:58 Anion Gap 22 mmol/L 08/22/17 03:58 BUN 20 mg/dL (7-17) H 08/22/17 03:58 Creatinine 1.0 mg/dL (0.7-1.2) 08/22/17 03:58 Estimated GFR > 60 ml/min 08/22/17 03:58 BUN/Creatinine Ratio 20 % 08/22/17 03:58 Glucose 104 mg/dL (65-100) H 08/22/17 03:58 POC Glucose 106 (70-105) H 08/22/17 22:28 Hemoglobin A1c 6.2 % (4-6) H 08/17/17 04:20 Lactic Acid 1.10 mmol/L (0.7-2.0) 08/17/17 04:20 Calcium 8.7 mg/dL (8.4-10.2) 08/22/17 03:58 Phosphorus 3.80 mg/dL (2.5-4.5) 08/21/17 04:13 Magnesium 2.20 mg/dL (1.7-2.3) 08/21/17 04:13 Total Bilirubin 1.20 mg/dL (0.1-1.2) 08/20/17 04:06 AST 12 units/L (5-40) 08/20/17 04:06 ALT 14 units/L (7-56) 08/20/17 04:06 Alkaline Phosphatase 82 units/L (35-129) 08/20/17 04:06 NT-Pro-B Natriuret Pep 621.2 pg/mL (0-450) H 08/16/17 06:00 Total Protein 6.2 g/dL (6.3-8.2) L 08/20/17 04:06 Albumin 3.0 g/dL (3.9-5) L 08/20/17 04:06 Albumin/Globulin Ratio 0.9 % 08/20/17 04:06 Triglycerides 167 mg/dL (2-149) H 08/19/17 09:03 Urine Color Straw (Yellow) 08/16/17 06:06 Urine Turbidity Clear (Clear) 08/16/17 06:06 Urine pH 6.0 (5.0-7.0) 08/16/17 06:06 Ur Specific Dustin 1.007 (1.003-1.030) 08/16/17 06:06 Urine Protein >500 mg/dL (Negative) 08/16/17 06:06 Urine Glucose (UA) >=500 mg/dL (Negative) 08/16/17 06:06 Urine Ketones Neg mg/dL (Negative) 08/16/17 06:06 Urine Blood Sm (Negative) 08/16/17 06:06 Urine Nitrite Neg (Negative) 08/16/17 06:06 Urine Bilirubin Neg (Negative) 08/16/17 06:06 Urine Urobilinogen < 2.0 mg/dL (<2.0) 08/16/17 06:06 Ur Leukocyte Esterase Neg (Negative) 08/16/17 06:06 Urine WBC (Auto) 2.0 /HPF (0.0-6.0) 08/16/17 06:06 Urine RBC (Auto) 2.0 /HPF (0.0-6.0) 08/16/17 06:06 U Epithel Cells (Auto) < 1.0 /HPF (0-13.0) 08/16/17 06:06 Urine Creatinine 220.2 mg/dL (0.1-20.0) H 08/17/17 11:03 Urine Sodium 10 mmol/L 08/17/17 11:03 Fraction Sodium Excret 0.0 08/17/17 11:03 Urine Urea Nitrogen 1213 08/17/17 11:03 Urine Opiates Screen Presumptive negative 08/16/17 06:06 Urine Methadone Screen Presumptive negative 08/16/17 06:06 Ur Barbiturates Screen Presumptive negative 08/16/17 06:06 Ur Phencyclidine Scrn Presumptive negative 08/16/17 06:06 Ur Amphetamines Screen Presumptive negative 08/16/17 06:06 U Benzodiazepines Scrn Presumptive negative 08/16/17 06:06 Urine Cocaine Screen Presumptive negative 08/16/17 06:06 U Marijuana (THC) Screen Presumptive negative 08/16/17 06:06 Drugs of Abuse Note Disclamer 08/16/17 06:06 Blood Type B POSITIVE 08/16/17 06:15 Antibody Screen Negative 08/16/17 06:15
[2017-08-23] MEDS: LOPRESSOR PO SCH ×3 (05:46→13:40)
[2017-08-23] MEDS: APRESOLINE PO SCH ×2 (05:47→13:40)
[2017-08-23 06:53] LABS: Hematocrit 37.1 % (30.3-42.9); Hemoglobin 12.4 gm/dl (10.1-14.3); Mean Corpuscular HGB Conc 34 % (30-34); Mean Corpuscular Hemoglobin 26 pg (28-32); Mean Corpuscular Volume 79 fl (79-97); Platelet Count 274 K/mm3 (140-440); Red Blood Count 4.73 M/mm3 (3.65-5.03); Red Cell Distribution Width 13.9 % (13.2-15.2)
[2017-08-23 07:07] LABS: Calcium 8.4 mg/dL (8.4-10.2)
[2017-08-23] MEDS: PULMICORT IH SCH (08:06)
[2017-08-23] MEDS: HumaLOG SUB-Q SCH ×2 (08:34→13:40)
[2017-08-23] MEDS: LASIX PO SCH (09:32)
[2017-08-23] MEDS: COZAAR PO SCH (09:32)
[2017-08-23] MEDS: ASPIRIN PO SCH (09:32)
[2017-08-23] MEDS: LOVENOX SUB-Q SCH (09:32)
[2017-08-23] MEDS: HABITROL TD SCH (09:32)
[2017-08-23] MEDS: PEPCID PO SCH (09:32)
[2017-08-23] MEDS: EFFIENT PO SCH (09:35)
--- NOTE | 2017-08-23 12:57 | Discharge Summary ---
Providers - Providers Date of Admission: 08/16/17 07:15 Date of discharge: 08/23/17 Attending physician: SUSANA DOWLING 08/16/17 07:33 Consult to Physician [CONS] Stat Comment: Consulting Provider: ROBERT GANN Physician Instructions: Reason For Exam: CCU admit 08/18/17 20:29 Consult to Dietitian/Nutrition [CONS] Routine Physician Instructions: Reason For Exam: Reason for Consult: Write/Manage Tube Feeding Primary care physician: LENDING MANAGER Hospitalization Condition: Fair Pertinent studies: Renal ultrasound no obstruction cholelithiasis superficial venous thrombosis Hospital course: 40-year-old female with a history of morbid obesity diabetes hypertension presented with malignant hypertension and acute respiratory failure. Patient was intubated failure was thought to be secondary to aspiration. Patient was treated with broad-spectrum antibiotics and steroid taper and nebulizers. Patient was weaned over 5 days and is now hemogram was stable. Patient is off oxygen satting at 99% on room air. Patient aware to get sleep study with primary care physician immediately after she is discharged. Spoke about smoking cessation greater than 15 minutes. Compliance with medical management. Disposition: DC-01 TO HOME OR SELFCARE - Discharge Diagnoses (1) Morbid obesity Status: Acute Comment: Patient has been educated about weight loss low carb diet and exercise. (2) Acute respiratory failure Status: Acute Comment: Acute respiratory failure resolved thought to be secondary to aspiration pneumonia. Off antibiotic coverage. Often nebulizes. We'll give when necessary metered-dose inhaler of albuterol. Does not require home oxygen. (3) Aspiration pneumonia Status: Acute Comment: Resolved after antibiotic coverage. (4) Accelerated hypertension Status: Acute Comment: Has resolved on losartan and Lopressor and hydralazine. Continue present medical management at home. (5) Encounter for smoking cessation counseling Status: Acute Core Measure Documentation - Palliative Care Palliative Care/ Comfort Measures: Not Applicable - Core Measures Any of the following diagnoses?: none Exam - Constitutional Vitals: Temp Pulse Resp BP Pulse Ox 98.8 F 88 20 116/71 98 08/23/17 08:54 08/23/17 10:00 08/23/17 08:54 08/23/17 08:54 08/23/17 08:54 General appearance: Present: no acute distress, well-nourished - EENT Eyes: Present: PERRL ENT: hearing intact, clear oral mucosa - Neck Neck: Present: supple, normal ROM - Respiratory Respiratory effort: normal Respiratory: bilateral: CTA - Cardiovascular Heart Sounds: Present: S1 & S2. Absent: rub, click - Extremities Extremities: pulses symmetrical, No edema Peripheral Pulses: within normal limits - Abdominal General gastrointestinal: Present: soft, non-tender, non-distended, normal bowel sounds Female genitourinary: Present: normal - Integumentary Integumentary: Present: clear, warm, dry - Musculoskeletal Musculoskeletal: gait normal, strength equal bilaterally - Psychiatric Psychiatric: appropriate mood/affect, intact judgment & insight - Neurologic Neurologic: CNII-XII intact, moves all extremities Plan Activity: no restrictions Weight Bearing Status: Non-Weight Bearing Diet: low fat Follow up with: PRIMARY CARE, [Primary Care Provider] - 7 Days Prescriptions: Aspirin EC [Aspirin Enteric Coated TAB] 325 mg PO QDAY #30 tablet AtorvaSTATin [Lipitor] 40 mg PO QHS #30 tablet Clopidogrel Bisulfate [Plavix] 75 mg PO DAILY #30 tablet Furosemide [Lasix TAB] 20 mg PO QDAY #30 tablet hydrALAZINE [Apresoline TAB] 25 mg PO Q8HR #60 tablet Losartan [Cozaar] 25 mg PO BID #30 tablet Metoprolol [Lopressor TAB] 50 mg PO Q6H #60 tablet Metoprolol [Lopressor TAB] 25 mg PO BID #60 tablet Nicotine [Habitrol] 21 mg TD QDAY #7 patch Prasugrel [Effient] 10 mg PO QDAY #30 tablet Prasugrel [Effient] 10 mg PO QDAY #30 tablet
[2017-08-23 14:03] VITALS: BP 138/73
--- NOTE | 2017-08-23 14:29 | Progress Note ---
Assessment and Plan Imp: 1. Acute respiratory failure, hypoxia and hypercapnea; suspect pulm edema due to malignant HTN which may be exacerbated by untreated KATARZYNA 2. CAD s/p PCI 08/19 3. Malignant HTN on presentation with SBP > 200 4. Morbid obesity 5. CKD 6. Lactic acidosis Rec: 1. Cont. Losartan 25mg BID + Lopressor same dose, Lasix 20mg daily, and Hydralazine 25mg TID; d/w her re: need for compliance with BP meds and low sodium diet 2. Needs PSG outpatient GEOFFREY, she understands; do not drive/operate machinery while sleepy; gave her our office # 3. May d/c home pulm-simon; will sign off Plan of care reviewed with patient, she understands/agrees Subjective Date of service: 08/23/17 Principal diagnosis: Acute respiratory failure Interval history: No events overnight. On RA. No SOB, chest pain. Active Medications Albuterol (Proventil) 2.5 mg IH Q6HRT PRN PRN Reason: Wheezing Last Admin: 08/23/17 08:06 Dose: 2.5 mg Aspirin (Aspirin) 325 mg PO QDAY [facility] Last Admin: 08/23/17 09:32 Dose: 325 mg Atorvastatin Calcium (Lipitor) 40 mg PO QHS [facility] Last Admin: 08/22/17 21:54 Dose: 40 mg Budesonide (Pulmicort) 0.5 mg IH Q12HRT [facility] Last Admin: 08/23/17 08:06 Dose: 0.5 mg Dextrose (D50w (25gm) Syringe) 50 ml IV PRN PRN PRN Reason: Hypoglycemia Enoxaparin Sodium (Lovenox) 40 mg SUB-Q QDAY [facility] Last Admin: 08/23/17 09:32 Dose: 40 mg Famotidine (Pepcid) 20 mg PO BID [facility] Last Admin: 08/23/17 09:32 Dose: 20 mg Furosemide (Lasix) 20 mg PO QDAY [facility] Last Admin: 08/23/17 09:32 Dose: 20 mg Hydralazine HCl (Apresoline) 10 mg IV Q4H PRN PRN Reason: Hypertension Last Admin: 08/21/17 16:16 Dose: 10 mg Hydralazine HCl (Apresoline) 25 mg PO Q8HR [facility] Last Admin: 08/23/17 13:40 Dose: 25 mg Hydrophilic Ointment (Vaseline Lip Therapy) 1 applic TP Q2HR PRN PRN Reason: Dry Lips Insulin Human Lispro (Humalog) 0 unit SUB-Q ACHS [facility]; Protocol Last Admin: 08/23/17 13:40 Dose: Not Given Losartan Potassium (Cozaar) 25 mg PO BID [facility] Last Admin: 08/23/17 09:32 Dose: 25 mg Metoprolol Tartrate (Lopressor) 50 mg PO Q6H [facility] Last Admin: 08/23/17 13:40 Dose: 50 mg Nicotine (Habitrol) 21 mg TD QDAY [facility] Last Admin: 08/23/17 09:32 Dose: 21 mg Prasugrel (Effient) 10 mg PO QDAY [facility] Last Admin: 08/23/17 09:35 Dose: 10 mg Objective Vital Signs - 12hr 08/23/17 08/23/17 08/23/17 04:57 05:46 05:47 Temperature 98.6 F Pulse Rate 86 74 77 Respiratory 18 Rate Blood Pressure 146/74 146/74 146/74 O2 Sat by Pulse 96 Oximetry 08/23/17 08/23/17 08/23/17 08:54 10:00 13:07 Temperature 98.8 F 98.3 F Pulse Rate 86 88 91 H Respiratory 20 20 Rate Blood Pressure 116/71 138/73 O2 Sat by Pulse 98 100 Oximetry Constitutional: no acute distress, alert Eyes: non-icteric ENT: oropharynx moist Neck: supple Effort: normal Ascultation: Bilateral: clear Cardiovascular: regular rate and rhythm (no mrg) Gastrointestinal: normoactive bowel sounds, soft, non-tender, non-distended Integumentary: normal Extremities: no cyanosis, no edema, pink and warm Neurologic: normal mental status, non-focal exam, pupils equal and round, CN II- XII normal Psychiatric: mood appropriate, affect normal CBC and BMP: 08/23/17 06:15 08/23/17 06:15 ABG, PT/INR, D-dimer: ABG POC ABG pH 7.399 (7.35-7.45) 08/21/17 13:48 POC ABG pCO2 33.9 (35-45) L 08/21/17 13:48 POC ABG pO2 116 (80-105) H 08/21/17 13:48 POC ABG HCO3 21.0 08/21/17 13:48 POC ABG Total CO2 22 08/21/17 13:48 POC ABG O2 Sat 99 08/21/17 13:48 Abnormal lab findings: Abnormal Labs 08/16/17 08/16/17 08/16/17 06:00 06:00 06:00 WBC 12.7 H RBC 5.28 H Hct 43.2 H MCH 26 L MCHC [place] % (Auto) [place] # Seg Neutrophils % Lymphocytes % (Manual) 48.0 H Seg Neutrophils # Lymphocytes # (Manual) 6.1 H POC ABG pH POC ABG pCO2 POC ABG pO2 Sodium Potassium Chloride 96.4 L Carbon Dioxide 17 L BUN 25 H Creatinine 1.5 H Glucose 312 H POC Glucose Hemoglobin A1c Lactic Acid 4.00 H* Calcium 8.3 L Phosphorus 8.80 H AST 61 H Alkaline Phosphatase 157 H NT-Pro-B Natriuret Pep 621.2 H Total Protein Albumin 3.8 L Triglycerides Urine Creatinine 08/16/17 08/16/17 08/16/17 07:24 11:57 12:07 WBC RBC Hct MCH MCHC [place] % (Auto) [place] # Seg Neutrophils % Lymphocytes % (Manual) Seg Neutrophils # Lymphocytes # (Manual) POC ABG pH 7.204 L POC ABG pCO2 62.2 H POC ABG pO2 234 H Sodium Potassium Chloride Carbon Dioxide BUN Creatinine Glucose POC Glucose 138 H Hemoglobin A1c Lactic Acid 2.80 H* Calcium Phosphorus AST Alkaline Phosphatase NT-Pro-B Natriuret Pep Total Protein Albumin Triglycerides Urine Creatinine 08/16/17 08/16/17 08/16/17 13:27 17:43 18:05 WBC RBC Hct MCH MCHC [place] % (Auto) [place] # Seg Neutrophils % Lymphocytes % (Manual) Seg Neutrophils # Lymphocytes # (Manual) POC ABG pH POC ABG pCO2 POC ABG pO2 Sodium Potassium Chloride Carbon Dioxide BUN Creatinine 1.3 H Glucose POC Glucose 138 H Hemoglobin A1c Lactic Acid 2.20 H* Calcium Phosphorus AST Alkaline Phosphatase NT-Pro-B Natriuret Pep Total Protein Albumin Triglycerides Urine Creatinine 08/17/17 08/17/17 08/17/17 00:06 04:20 04:20 WBC RBC Hct MCH 27 L MCHC 35 H [place] % (Auto) [place] # Seg Neutrophils % Lymphocytes % (Manual) Seg Neutrophils # Lymphocytes # (Manual) POC ABG pH POC ABG pCO2 POC ABG pO2 Sodium Potassium 3.1 L D Chloride 107.9 H Carbon Dioxide 16 L BUN 23 H Creatinine 1.5 H Glucose 143 H POC Glucose 143 H Hemoglobin A1c Lactic Acid Calcium 7.8 L Phosphorus AST Alkaline Phosphatase NT-Pro-B Natriuret Pep Total Protein Albumin Triglycerides Urine Creatinine 08/17/17 08/17/17 08/17/17 04:20 04:57 05:48 WBC RBC Hct MCH MCHC [place] % (Auto) [place] # Seg Neutrophils % Lymphocytes % (Manual) Seg Neutrophils # Lymphocytes # (Manual) POC ABG pH 7.555 H POC ABG pCO2 19.3 L POC ABG pO2 140 H Sodium Potassium Chloride Carbon Dioxide BUN Creatinine Glucose POC Glucose 129 H Hemoglobin A1c 6.2 H Lactic Acid Calcium Phosphorus AST Alkaline Phosphatase NT-Pro-B Natriuret Pep Total Protein Albumin Triglycerides Urine Creatinine 08/17/17 08/17/17 08/17/17 11:03 11:03 11:55 WBC RBC Hct MCH MCHC [place] % (Auto) [place] # Seg Neutrophils % Lymphocytes % (Manual) Seg Neutrophils # Lymphocytes # (Manual) POC ABG pH POC ABG pCO2 POC ABG pO2 Sodium Potassium Chloride Carbon Dioxide BUN Creatinine Glucose POC Glucose 138 H Hemoglobin A1c Lactic Acid Calcium Phosphorus AST Alkaline Phosphatase NT-Pro-B Natriuret Pep Total Protein Albumin Triglycerides Urine Creatinine 220.2 H 218.6 H 08/17/17 08/17/17 08/18/17 18:17 23:30 00:02 WBC RBC Hct MCH MCHC [place] % (Auto) [place] # Seg Neutrophils % Lymphocytes % (Manual) Seg Neutrophils # Lymphocytes # (Manual) POC ABG pH POC ABG pCO2 33.2 L POC ABG pO2 307 H Sodium Potassium Chloride Carbon Dioxide BUN Creatinine Glucose POC Glucose 173 H 126 H Hemoglobin A1c Lactic Acid Calcium Phosphorus AST Alkaline Phosphatase NT-Pro-B Natriuret Pep Total Protein Albumin Triglycerides Urine Creatinine 08/18/17 08/18/17 08/18/17 04:20 05:04 09:52 WBC RBC Hct MCH 26 L MCHC [place] % (Auto) [place] # Seg Neutrophils % 74.9 H Lymphocytes % (Manual) Seg Neutrophils # 7.9 H Lymphocytes # (Manual) POC ABG pH POC ABG pCO2 28.7 L POC ABG pO2 130 H Sodium Potassium Chloride Carbon Dioxide BUN Creatinine Glucose POC Glucose 118 H Hemoglobin A1c Lactic Acid Calcium Phosphorus AST Alkaline Phosphatase NT-Pro-B Natriuret Pep Total Protein Albumin Triglycerides Urine Creatinine 08/18/17 08/18/17 08/19/17 09:52 11:50 05:08 WBC RBC Hct MCH MCHC [place] % (Auto) [place] # Seg Neutrophils % Lymphocytes % (Manual) Seg Neutrophils # Lymphocytes # (Manual) POC ABG pH 7.478 H POC ABG pCO2 26.1 L POC ABG pO2 Sodium 146 H Potassium 3.2 L Chloride 111.2 H Carbon Dioxide 18 L BUN Creatinine Glucose 123 H POC Glucose 106 H Hemoglobin A1c Lactic Acid Calcium 8.0 L Phosphorus AST Alkaline Phosphatase NT-Pro-B Natriuret Pep Total Protein Albumin Triglycerides Urine Creatinine 08/19/17 08/19/17 08/20/17 05:26 09:03 04:06 WBC RBC Hct MCH 27 L MCHC [place] % (Auto) 8.4 H [place] # Seg Neutrophils % Lymphocytes % (Manual) Seg Neutrophils # Lymphocytes # (Manual) POC ABG pH POC ABG pCO2 POC ABG pO2 Sodium Potassium Chloride Carbon Dioxide BUN Creatinine Glucose POC Glucose 109 H Hemoglobin A1c Lactic Acid Calcium Phosphorus AST Alkaline Phosphatase NT-Pro-B Natriuret Pep Total Protein Albumin Triglycerides 167 H Urine Creatinine 08/20/17 08/20/17 08/20/17 04:06 04:46 05:34 WBC RBC Hct MCH MCHC [place] % (Auto) [place] # Seg Neutrophils % Lymphocytes % (Manual) Seg Neutrophils # Lymphocytes # (Manual) POC ABG pH 7.454 H POC ABG pCO2 29.9 L POC ABG pO2 133 H Sodium Potassium 3.2 L Chloride 108.3 H Carbon Dioxide 18 L BUN 18 H Creatinine Glucose POC Glucose 112 H Hemoglobin A1c Lactic Acid Calcium 8.1 L Phosphorus AST Alkaline Phosphatase NT-Pro-B Natriuret Pep Total Protein 6.2 L Albumin 3.0 L Triglycerides Urine Creatinine 08/20/17 08/21/17 08/21/17 17:05 04:13 04:13 WBC RBC Hct MCH 26 L MCHC [place] % (Auto) 9.4 H [place] # 0.9 H Seg Neutrophils % Lymphocytes % (Manual) Seg Neutrophils # Lymphocytes # (Manual) POC ABG pH POC ABG pCO2 POC ABG pO2 Sodium 147 H Potassium Chloride 110.0 H Carbon Dioxide 19 L BUN 23 H Creatinine 1.3 H Glucose 111 H POC Glucose 106 H Hemoglobin A1c Lactic Acid Calcium Phosphorus AST Alkaline Phosphatase NT-Pro-B Natriuret Pep Total Protein Albumin Triglycerides Urine Creatinine 08/21/17 08/21/17 08/21/17 05:11 11:49 13:48 WBC RBC Hct MCH MCHC [place] % (Auto) [place] # Seg Neutrophils % Lymphocytes % (Manual) Seg Neutrophils # Lymphocytes # (Manual) POC ABG pH POC ABG pCO2 31.3 L 33.9 L POC ABG pO2 128 H 116 H Sodium Potassium Chloride Carbon Dioxide BUN Creatinine Glucose POC Glucose 121 H Hemoglobin A1c Lactic Acid Calcium Phosphorus AST Alkaline Phosphatase NT-Pro-B Natriuret Pep Total Protein Albumin Triglycerides Urine Creatinine 08/21/17 08/22/17 08/22/17 18:28 03:58 03:58 WBC RBC Hct MCH 26 L MCHC [place] % (Auto) [place] # Seg Neutrophils % 70.6 H Lymphocytes % (Manual) Seg Neutrophils # Lymphocytes # (Manual) POC ABG pH POC ABG pCO2 POC ABG pO2 Sodium Potassium Chloride 108.4 H Carbon Dioxide 19 L BUN 20 H Creatinine Glucose 104 H POC Glucose 149 H Hemoglobin A1c Lactic Acid Calcium Phosphorus AST Alkaline Phosphatase NT-Pro-B Natriuret Pep Total Protein Albumin Triglycerides Urine Creatinine 08/22/17 08/23/17 08/23/17 22:28 06:15 06:15 WBC RBC Hct MCH 26 L MCHC [place] % (Auto) [place] # Seg Neutrophils % Lymphocytes % (Manual) Seg Neutrophils # Lymphocytes # (Manual) POC ABG pH POC ABG pCO2 POC ABG pO2 Sodium Potassium 3.5 L Chloride Carbon Dioxide 20 L BUN 22 H Creatinine Glucose 121 H POC Glucose 106 H Hemoglobin A1c Lactic Acid Calcium Phosphorus AST Alkaline Phosphatase NT-Pro-B Natriuret Pep Total Protein Albumin Triglycerides Urine Creatinine 08/23/17 08/23/17 06:19 13:21 WBC RBC Hct MCH MCHC [place] % (Auto) [place] # Seg Neutrophils % Lymphocytes % (Manual) Seg Neutrophils # Lymphocytes # (Manual) POC ABG pH POC ABG pCO2 POC ABG pO2 Sodium Potassium Chloride Carbon Dioxide BUN Creatinine Glucose POC Glucose 109 H 183 H Hemoglobin A1c Lactic Acid Calcium Phosphorus AST Alkaline Phosphatase NT-Pro-B Natriuret Pep Total Protein Albumin Triglycerides Urine Creatinine Chest x-ray: report reviewed, image reviewed
== END 2017-08-23 19:00 | disposition home or self-care (01) | DRG 208 ==
LOC: ED 05:30 → CC1 07:15 → UNDODISIN 08:54 → 4A 08-22 14:56
PROVIDERS: ADMIT Internal Medicine; ATTEND Internal Medicine
PROC: 4A033R1 Measurement of Arterial Saturation, Peripheral, Percutaneous Approach (ICD-10-PCS; principal; 2017-08-16)
PROC: 5A1935Z Respiratory Ventilation, Less than 24 Consecutive Hours (ICD-10-PCS; 2017-08-16)
PROC: 0BH17EZ Insertion of Endotracheal Airway into Trachea, Via Natural or Artificial Opening (ICD-10-PCS; 2017-08-16)
PROC: 5A1945Z Respiratory Ventilation, 24-96 Consecutive Hours (ICD-10-PCS; 2017-08-17)
PROC: 0BH17EZ Insertion of Endotracheal Airway into Trachea, Via Natural or Artificial Opening (ICD-10-PCS; 2017-08-17)
DX: J96.01 Acute respiratory failure with hypoxia (principal); N17.0 Acute kidney failure with tubular necrosis; I82.611 Acute embolism and thrombosis of superficial veins of right upper extremity; J96.02 Acute respiratory failure with hypercapnia; E66.01 Morbid (severe) obesity due to excess calories; E11.9 Type 2 diabetes mellitus without complications; I25.10 Atherosclerotic heart disease of native coronary artery without angina pectoris; F17.200 Nicotine dependence, unspecified, uncomplicated; I12.9 Hypertensive chronic kidney disease with stage 1 through stage 4 chronic kidney disease, or unspecified chronic kidney disease; N18.9 Chronic kidney disease, unspecified; Z68.41 Body mass index [BMI] 40.0-44.9, adult; Z79.899 Other long term (current) drug therapy; Z79.82 Long term (current) use of aspirin; Z71.6 Tobacco abuse counseling
CPT/HCPCS: 36415; 36600; 71045; 74018; 76770; 80048; 80053; 80307; 81001; 82140; 82565; 82570; 82803; 82962; 83036; 83735; 83880; 84100; 84295; 84300; 84478; 84520; 85007; 85025; 85027; 86850; 86900; 86901; 87040; 87070; 87086; 87205; 93005; 93010; 93306; 94002; 94003; 94640; 94760; 96374; A9270-GY; J0330; J0360; J1630; J1650; J1940; J2060; J2250; J2543; J2704; J3010; J3370; J3411; J3475; J7030; J7040